=== PATIENT | male | born 1935 | race Caucasian/White ===

== ENCOUNTER 2017-01-13 10:50 | Emergency (ER) | payer MEDICARE, OTHER ==
[2017-01-13 10:58] VITALS: BP 144/70
[2017-01-13] MEDS ORDERED: Bacitracin/Neomycin/Polymyxin B Oint 0.9 GM U/D Packet TOP ONE (11:10)
[2017-01-13] MEDS ORDERED: Diphtheria,Pertussis(Acell),Tetanus Vaccine 0.5 ML Syringe IM ONE (11:11)
--- NOTE | 2017-01-13 11:21 | EDM.PDOC ---
ED HPI GENERAL MEDICAL PROBLEM - General Chief Complaint: General Stated Complaint: fall, hit head Time Seen by Provider: 01/13/17 11:10 Source of Information: Reports: Patient History Limitations: Reports: No limitations - History of Present Illness INITIAL COMMENTS - FREE TEXT/NARRATIVE: States that [place] and he lost his balance and fell forward. He has abrasions to his forehead and nose and right knee. Denies pain in neck or back. Was brought in by family. Denies any LOC. Abrasion are bleeding slightly to face. No bleeding to knee. Was able to get up with the help of family at the scene and has been walking around without discomfort since. Areas were cleaned by nursing and no debris noted. No lacerations that would require suturing. No pain to his nose except where the abrasion is. No deformity of the nose noted. Onset: today Location: Reports: face, lower extremity, right Quality: Reports: Burning Severity: mild Associated Symptoms: Reports: no other symptoms Headache Pain Score (Numeric/FACES): 2 - Related Data Allergies Allergy/AdvReac Type Severity Reaction Status Date / Time Penicillins Allergy Intermediate Swelling Verified 01/13/17 11:41 Sulfa (Sulfonamide Allergy Intermediate Nausea Verified 01/13/17 11:41 Antibiotics) niacin Allergy Rash Verified 01/13/17 11:41 Home Meds: Home Meds Loratadine [Claritin] 10 mg PO DAILY 02/13/14 [History] Ascorbate Calcium [Vitamin C] 1 tab PO DAILY 02/15/14 [History] Aspirin 325 mg PO DAILY 02/15/14 [History] Cholecalciferol (Vitamin D3) [Vitamin D] 1,000 unit PO DAILY 02/15/14 [History] Finasteride [Proscar] 5 mg PO DAILY 02/15/14 [History] Hydrochlorothiazide 25 mg PO DAILY 02/15/14 [History] Losartan [Cozaar] 50 mg PO QAM 02/15/14 [History] Losartan [Cozaar] 100 mg PO QPM 02/15/14 [History] Metoprolol Tartrate 100 mg PO BID 02/15/14 [History] Vitamin B Complex [B Complex] 1 each PO DAILY 02/15/14 [History] amLODIPine [Norvasc] 10 mg PO DAILY 02/15/14 [History] Gluc/MSM/C/[place]/Manganese/Gail [Joint Support Complex Softgel] 1 tab PO BID 08/24 [History] atorvaSTATin [Lipitor] 10 mg PO DAILY 08/20/15 [History] metFORMIN HCl [Metformin HCl] 500 mg PO DAILY 01/13/17 [History] Social & Family History - Tobacco Use Smoking Status *Q: Never Smoker - Living Situation & Occupation Living situation: Reports: , with spouse Occupation: retired ED ROS GENERAL - Review of Systems Review Of Systems: See Below Constitutional: Reports: no symptoms HEENT: Denies: Nosebleed, Nose pain Respiratory: Reports: No Symptoms Cardiovascular: Reports: No symptoms GI/Abdominal: Reports: No symptoms Musculoskeletal: Reports: no symptoms Skin: Reports: wound (see HPI) Neurological: Denies: Confusion, Dizziness, Headache, Numbness, Syncope, Weakness ED EXAM, GENERAL - Physical Exam Exam: See Below Exam Limited By: No limitations General Appearance: alert, WD/WN, no apparent distress Eye Exam: bilateral eye: PERRL Ears: normal canal, normal TMs Nose: No: nasal deformity, nasal swelling Throat/Mouth: Normal oropharynx, No airway compromise Head: facial tenderness. No: facial swelling Neck: normal inspection, supple, non-tender, full range of motion Respiratory/Chest: no respiratory distress, lungs clear, normal breath sounds Cardiovascular: regular rate, rhythm, no edema GI/Abdominal: normal bowel sounds, soft Back Exam: normal inspection, full range of motion Extremities: normal inspection, no pedal edema Neurological: alert, oriented Skin Exam: Warm, Dry, Intact, Other (abrasion to the forehead that is bleeding slightly. No debris noted with exam. Cleaned well and dressed with KIMBERLY and 4X4. Nose has small abrasion and no bleeding. KIMBERLY and dressing applied.) Course - Vital Signs Last Recorded V/S: Last Vital Signs Temp 98.7 F 01/13/17 10:52 Pulse 72 01/13/17 10:52 Resp 16 01/13/17 10:52 BP 144/70 H 01/13/17 10:52 Pulse Ox 96 01/13/17 10:52 - Orders/Labs/Meds Orders: Active Orders 24 hr Category Date Time Status Vaccines to be Administered [RC] PER UNIT ROUTINE Care 01/13/17 11:11 Active Meds: Medications Discontinued Medications Generic Name Dose Route Start Last Admin Trade Name Arlene PRN Reason Stop Dose Admin Diphtheria/Tetanus/Acell Pertussis 0.5 ml 01/13/17 11:11 01/13/17 11:15 Adacel IM 01/13/17 11:12 0.5 ml .ONCE ONE Administration Neomycin/Polymyxin/Bacitracin 3 each 01/13/17 11:10 01/13/17 11:15 Triple Antibiotic Oint TOP 01/13/17 11:11 3 each ONETIME ONE Administration Departure - Departure Time of Disposition: Disposition: Home, Self-Care 01 Condition: good Clinical Impression: Abrasion, Fall Referrals: Eulogio Puente MD [Primary Care Provider] - Forms: ED Department Discharge Additional Instructions: keep area dry and clean. Apply antibiotic ointment to the area. If scabbed then can clean with peroxide gently. recheck if any new concerns - Problem List & Annotations (1) Abrasion SNOMED Code(s): 701157889 Code(s): T14.8 - OTHER INJURY OF UNSPECIFIED BODY REGION Status: Acute Priority: High (2) Fall SNOMED Code(s): 4127365, 384132647 Code(s): W19.XXXA - UNSPECIFIED FALL, INITIAL ENCOUNTER Status: Acute - Problem List Review Problem List Initiated/Reviewed/Updated: Yes - My Orders Last 24 Hours: My Active Orders 01/13/17 11:11 Vaccines to be Administered [RC] PER UNIT ROUTINE - Assessment/Plan Last 24 Hours: My Active Orders 01/13/17 11:11 Vaccines to be Administered [RC] PER UNIT ROUTINE
== END 2017-01-13 11:30 | disposition home or self-care (01) ==
LOC: CC.ED 10:50
DX: S00.81XA Abrasion of other part of head, initial encounter (principal); S00.31XA Abrasion of nose, initial encounter; S80.211A Abrasion, right knee, initial encounter; Z88.0 Allergy status to penicillin; Z88.2 Allergy status to sulfonamides; Z79.82 Long term (current) use of aspirin; Z23 Encounter for immunization; Z79.899 Other long term (current) drug therapy; W19.XXXA Unspecified fall, initial encounter
CPT/HCPCS: 90471; 90715; 99282

== ENCOUNTER 2018-10-25 14:39 | Observation (INO) | payer MEDICARE, OTHER ==
[2018-10-25] MEDS ORDERED: Aspirin 81 MG Tab.Chew PO ONE (14:48)
[2018-10-25 15:24] LABS: CHLORIDE,CL 98 mEq/L (98-106); SODIUM,NA 137 mEq/L (136-145)
--- NOTE | 2018-10-25 15:26 | EDM.PDOC ---
ED HPI GENERAL MEDICAL PROBLEM - General Chief Complaint: Chest Pain Stated Complaint: CP Time Seen by Provider: 10/25/18 15:15 Source of Information: Reports: Patient History Limitations: Reports: No Limitations - History of Present Illness INITIAL COMMENTS - FREE TEXT/NARRATIVE: States that after he ate dinner today he developed midsternal chest pain and his states that he was very pale. He denied any diaphoresis, SOB, or nausea. Does have history of GERD but he feels that it has been controlled. He will occasionally get some distal ankle edema but has been minimal. When he arrived in the ER the pain had subsided. He currently does not have any chest pain at all. He admits that he will occasionally get some palpations but didn't feel concerned about it and had not been evaluated for it. He states that many years ago he did have some atrial fib but none recently. Did have stress test 02/24/15 that was read as negative. Last EKG was 07/21/16 and was NSR. Carotid US was 10/27 and negative. Last echo 01/22 with EF of 60-65% Location: Reports: Chest Quality: Reports: Pressure Associated Symptoms: Reports: Fever/Chills, Shortness of Breath. Denies: Diaphoresis - Related Data Allergies Allergy/AdvReac Type Severity Reaction Status Date / Time Penicillins Allergy Intermediate Swelling Verified 10/25/18 15:16 Sulfa (Sulfonamide Allergy Intermediate Nausea Verified 10/25/18 15:16 Antibiotics) lactose Allergy Other Verified 10/25/18 17:50 niacin Allergy Burning Verified 10/25/18 15:16 Home Meds: Home Meds Loratadine [Claritin] 10 mg PO DAILY 02/13/14 [History] Cholecalciferol (Vitamin D3) [Vitamin D] 2,000 unit PO DAILY 02/15/14 [History] Finasteride [Proscar] 5 mg PO DAILY 02/15/14 [History] Losartan [Cozaar] 50 mg PO QAM 02/15/14 [History] Losartan [Cozaar] 100 mg PO QPM 02/15/14 [History] Metoprolol Tartrate 100 mg PO BID 02/15/14 [History] Vitamin B Complex [B Complex] 1 each PO DAILY 02/15/14 [History] amLODIPine [Norvasc] 10 mg PO DAILY 02/15/14 [History] hydroCHLOROthiazide [Hydrochlorothiazide] 25 mg PO DAILY 02/15/14 [History] atorvaSTATin [Lipitor] 10 mg PO DAILY 08/20/15 [History] metFORMIN HCl [Metformin HCl] 1,000 mg PO .BREAKFAST 01/13/17 [History] Ascorbic Acid [Vitamin C] 500 mg PO DAILY 11/03/17 [History] Betamethasone Dipropionate [Diprosone 0.05% Oint] 1 applic TOP ASDIRECTED PRN [History] Clotrimazole [Lotrimin AF 1% Crm] 1 applic TOP ASDIRECTED PRN 11/03/17 [History] Folic Acid 1 mg PO DAILY 11/03/17 [History] Aspirin [Ecotrin] 81 mg PO DAILY 10/25/18 [History] Magnesium 500 mg PO BID 10/25/18 [History] Pantoprazole Sodium 40 mg PO DAILY 10/25/18 [History] Past Medical History HEENT History: Reports: Glaucoma, Impaired Vision, Other (See Below) Other HEENT History: WEARS CORRECTIVE LENS Cardiovascular History: Reports: High Cholesterol, Hypertension Other Cardiovascular History: CAROTID VASCULAR DISEASE Respiratory History: Reports: None Gastrointestinal History: Reports: Colon Polyp, Diverticulosis, Gastritis, GERD , Hiatal Hernia, Other (See Below) Other Gastrointestinal History: LACTOSE INTOLERANCE. HEPATIC STEATOSIS. HX OF 'RECTAL HYPERPLASTIC POLYP' Genitourinary History: Reports: BPH Musculoskeletal History: Reports: Arthritis, Neck Pain, Chronic Neurological History: Reports: None Psychiatric History: Reports: None Endocrine/Metabolic History: Reports: Diabetes, Type II Hematologic History: Reports: None Immunologic History: Reports: None Oncologic (Cancer) History: Reports: None Dermatologic History: Reports: None - Infectious Disease History Infectious Disease History: Reports: Chicken Pox, Hepatitis non A,B,C, Measles, Mumps - Past Surgical History Head Surgeries/Procedures: Reports: None HEENT Surgical History: Reports: None, Cataract Surgery Cardiovascular Surgical History: Reports: Carotid Endarterectomy, Coronary Artery Bypass Respiratory Surgical History: Reports: None GI Surgical History: Reports: Cholecystectomy, Colonoscopy, EGD, Polypectomy Endocrine Surgical History: Reports: None Neurological Surgical History: Reports: None Musculoskeletal Surgical History: Reports: None Oncologic Surgical History: Reports: None Dermatological Surgical History: Reports: None Social & Family History - Caffeine Use Caffeine Use: Reports: Coffee, Soda Other Caffeine Use: TWO CUPS DAILY - Living Situation & Occupation Living situation: Reports: , with Spouse Occupation: Retired ED ROS GENERAL - Review of Systems Review Of Systems: See Below Constitutional: Denies: Fever, Chills HEENT: Reports: No Symptoms Respiratory: Reports: Cough. Denies: Shortness of Breath Cardiovascular: Reports: Chest Pain, Edema, Palpitations Endocrine: Reports: No Symptoms GI/Abdominal: Reports: No Symptoms. Denies: Constipation, Diarrhea, Nausea, Vomiting : Reports: No Symptoms Musculoskeletal: Reports: No Symptoms Skin: Reports: No Symptoms Neurological: Reports: No Symptoms Psychiatric: Reports: No Symptoms ED EXAM, GENERAL - Physical Exam Exam: See Below Exam Limited By: No Limitations General Appearance: Alert, WD/WN, No Apparent Distress Eye Exam: Bilateral Eye: PERRL Ears: Normal External Exam, Normal Canal, Normal TMs Nose: Normal Inspection Throat/Mouth: Normal Inspection, Normal Oropharynx Head: Atraumatic, Normocephalic Neck: Normal Inspection, Supple, Non-Tender, Full Range of Motion Respiratory/Chest: No Respiratory Distress, Lungs Clear, Normal Breath Sounds Cardiovascular: Normal Peripheral Pulses, No Edema, Irregularly Irregular. No: Tachycardia Peripheral Pulses: 4+: Carotid (L), Carotid (R) GI/Abdominal: Normal Bowel Sounds, Soft, Non-Tender Back Exam: Normal Inspection, Full Range of Motion Extremities: Normal Inspection, Normal Range of Motion, Non-Tender, No Pedal Edema, Normal Capillary Refill Neurological: Alert, Oriented Psychiatric: Normal Affect Skin Exam: Warm, Dry, Intact, Normal Color Course - Vital Signs Last Recorded V/S: Last Vital Signs Temp 98.7 F 10/26/18 16:00 Pulse 63 10/26/18 16:00 Resp 16 10/26/18 16:00 BP 115/45 L 10/26/18 16:00 Pulse Ox 98 10/26/18 16:00 - Orders/Labs/Meds Orders: Medication Orders Acetaminophen (Tylenol) 650 mg PO Q4H PRN PRN Reason: Pain (Mild 1-3)/fever Amlodipine Besylate (Norvasc) 10 mg PO DAILY [facility] Last Admin: 10/26/18 07:35 Dose: 10 mg Apixaban (Eliquis) 5 mg PO DAILY [facility] Last Admin: 10/26/18 07:31 Dose: 5 mg Admin: 10/25/18 17:56 Dose: 5 mg Aspirin (Halfprin) 81 mg PO DAILY [facility] Last Admin: 10/26/18 07:32 Dose: 81 mg Atorvastatin Calcium (Lipitor) 10 mg PO DAILY [facility] Last Admin: 10/26/18 07:32 Dose: 10 mg Finasteride (Proscar) 5 mg PO DAILY [facility] Last Admin: 10/26/18 07:35 Dose: 5 mg Losartan Potassium (Cozaar) 100 mg PO QPM [facility] Last Admin: 10/25/18 20:57 Dose: 100 mg Ptom Losartan [ (Cozaar] 100 Mg Tab) 50 mg PO QAM [facility] Last Admin: 10/26/18 07:33 Dose: 50 mg Ptom Magnesium (250 Mg) 250 mg PO BID [facility] Last Admin: 10/26/18 07:34 Dose: 250 mg Admin: 10/25/18 20:58 Dose: 250 mg Ptom Metoprolol (Tartrate 100 Mg) 100 mg PO BID [facility] Last Admin: 10/26/18 07:35 Dose: 100 mg Admin: 10/25/18 20:58 Dose: 100 mg Ptom Hydrochlorothiazide 50mg 50 mg PO DAILY [facility] Last Admin: 10/26/18 07:32 Dose: 50 mg Ptom Metformin (1000 Mg) 1,000 mg PO DAILY [facility] Last Admin: 10/26/18 07:34 Dose: 1,000 mg Pantoprazole Sodium (Protonix) 40 mg PO DAILY [facility] Last Admin: 10/26/18 07:37 Dose: 40 mg Sodium Chloride (Saline Flush) 10 ml FLUSH ASDIRECTED PRN PRN Reason: Keep Vein Open Temazepam (Restoril) 15 mg PO BEDTIME PRN PRN Reason: Insomnia Labs: Laboratory Tests 10/25/18 10/25/18 10/25/18 Range/Units 15:05 15:05 15:05 WBC 8.7 (5.0-10.0) 10^3/uL RBC 4.29 L (4.50-6.00) 10^6/uL Hgb 13.9 L (14.0-18.0) g/dL Hct 40.6 (40.0-54.0) % MCV 94.6 H (82.0-94.0) fL MCH 32.4 H (27.0-32.0) pg MCHC 34.2 (33.0-38.0) g/dL RDW Coeff of Jarvis 13.2 (11.0-15.0) % Plt Count 197 (150-400) 10^3/uL Neut % (Auto) 63.2 (35-85) % Lymph % (Auto) 21.2 (10-55) % [place] % (Auto) 12.5 (0-16) % Eos % (Auto) 2.9 (0-5) % Baso % (Auto) 0.2 (0-3) % Neut # (Auto) 5.47 (1.80-7.00) 10^3/uL Lymph # (Auto) 1.83 (1.00-4.80) 10^3/uL [place] # (Auto) 1.08 H (0.00-0.80) 10^3/uL Eos # (Auto) 0.25 (0.00-0.45) 10^3/uL Baso # (Auto) 0.02 10^3/uL PT 10.9 (9.7-12.3) SEC INR 1.05 (0.92-1.18) APTT 28.8 (23.2-32.3) SEC Sodium 137 (136-145) mEq/L Potassium 3.4 L (3.5-5.0) mEq/L Chloride 98 (98-106) mEq/L Carbon Dioxide 28 (21-32) mmol/L BUN 16 (7-18) mg/dL Creatinine 1.0 (0.7-1.3) mg/dL Est Cr Clr Drug Dosing 52.33 mL/min Estimated GFR (MDRD) > 60 (>=60) mL/min Glucose 125 H (75-99) mg/dL Calcium 9.4 (8.4-10.1) mg/dL Lactate Dehydrogenase 179 (100-190) U/L Creatine Kinase 45 (35-232) U/L Troponin I < 0.017 (0.00-0.06) ng/mL Meds: Medications Generic Name Dose Route Start Last Admin Trade Name Freq PRN Reason Stop Dose Admin Acetaminophen 650 mg 10/25/18 17:10 Tylenol PO Q4H PRN Pain (Mild 1-3)/fever Amlodipine Besylate 10 mg 10/26/18 08:00 10/26/18 07:35 Norvasc PO 10 mg DAILY [facility] Administration Apixaban 5 mg 10/25/18 17:15 10/26/18 07:31 Eliquis PO 5 mg DAILY [facility] Administration Aspirin 81 mg 10/26/18 08:00 10/26/18 07:32 Halfprin PO 81 mg DAILY [facility] Administration Atorvastatin Calcium 10 mg 10/26/18 08:00 10/26/18 07:32 Lipitor PO 10 mg DAILY [facility] Administration Finasteride 5 mg 10/26/18 08:00 10/26/18 07:35 Proscar PO 5 mg DAILY [facility] Administration Losartan Potassium 100 mg 10/25/18 20:00 10/25/18 20:57 Cozaar PO 100 mg QPM [facility]ANEL Administration Ptom Losartan [ 50 mg 10/26/18 08:00 10/26/18 07:33 Cozaar] 100 Mg Tab PO 50 mg QAM [facility]EL Administration Ptom Magnesium 250 mg 10/25/18 20:00 10/26/18 07:34 250 Mg PO 250 mg BID [facility]ANEL Administration Ptom Metoprolol 100 mg 10/25/18 20:00 10/26/18 07:35 Tartrate 100 Mg PO 100 mg BID [facility] Administration Ptom 50 mg 10/26/18 08:00 10/26/18 07:32 Hydrochlorothiazide PO 50 mg 50mg DAILY [facility] Administration Ptom Metformin 1,000 mg 10/26/18 08:00 10/26/18 07:34 1000 Mg PO 1,000 mg DAILY [facility] Administration Pantoprazole Sodium 40 mg 10/26/18 08:00 10/26/18 07:37 Protonix PO 40 mg DAILY [facility] Administration Sodium Chloride 10 ml 10/25/18 17:10 Saline Flush FLUSH ASDIRECTED PRN Keep Vein Open Temazepam 15 mg 10/26/18 14:04 Restoril PO BEDTIME PRN Insomnia Discontinued Medications Generic Name Dose Route Start Last Admin Trade Name Freq PRN Reason Stop Dose Admin Aspirin 324 mg 10/25/18 14:48 10/25/18 14:50 Aspirin PO 10/25/18 14:49 324 mg ONETIME ONE Administration Hydrochlorothiazide 25 mg 10/26/18 08:00 Hydrochlorothiazide PO DAILY [facility] Metformin HCl 1,000 mg 10/25/18 17:15 Glucophage PO .BREAKFAST [facility] - Re-Assessments/Exams Free Text/Narrative Re-Assessment/Exam: 10/25/[address] Ruby and will admit and work up to rule out [place] and new onset A. fib. Departure - Departure Time of Disposition: 16:00 Disposition: Refer to Observation Condition: Good Clinical Impression: Atrial fibrillation Qualifiers: Atrial fibrillation type: persistent Qualified Code(s): I48.1 - Persistent atrial fibrillation Chest pain Qualifiers: Chest pain type: other chest pain Qualified Code(s): R07.89 - Other chest pain Diabetes Qualifiers: Diabetes mellitus type: type 2 Diabetes mellitus long-term insulin use: without long-term use Diabetes mellitus complication status: with circulatory complication - Problem List & Annotations (1) Chest pain SNOMED Code(s): 15698920 Code(s): R07.9 - CHEST PAIN, UNSPECIFIED Status: Acute Priority: High Current Visit: Yes Qualifiers: Chest pain type: other chest pain Qualified Code(s): R07.89 - Other chest pain; R07.8 - Other chest pain (2) Atrial fibrillation SNOMED Code(s): 85702552 Code(s): I48.91 - UNSPECIFIED ATRIAL FIBRILLATION Status: Acute Priority : High Current Visit: Yes Qualifiers: Atrial fibrillation type: persistent Qualified Code(s): I48.1 - Persistent atrial fibrillation (3) Diabetes SNOMED Code(s): 63599544 Code(s): E11.9 - TYPE 2 DIABETES MELLITUS WITHOUT COMPLICATIONS Status: Chronic Priority: Medium Current Visit: Yes Qualifiers: Diabetes mellitus type: type 2 Diabetes 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 Ruby. Agrees with admit and plan of care. Will get updated echo and start on eloquis for the new onset atrial fib as he has NATALYA-Vasc score of 4 which places him at high risk of thrombosis. Repeat cardiac enzymes tonight and in AM.
[2018-10-25] MEDS ORDERED: Sodium Chloride 0.9% 10 ML Syringe FLUSH PRN (17:10)
[2018-10-25] MEDS ORDERED: Acetaminophen 325 MG Tab PO PRN (17:10)
[2018-10-25] MEDS ORDERED: metFORMIN 500 MG Tab PO SCH (17:15)
[2018-10-25] MEDS: Apixaban 5 MG Tab PO SCH (17:56)
[2018-10-25] MEDS: **PTOM** Losartan 100 MG Tab PO SCH (20:57)
[2018-10-25] MEDS: METOPROLOL TARTRATE 100 MG PO SCH (20:58)
[2018-10-25] MEDS: MAGNESIUM 250 MG PO SCH (20:58)
[2018-10-26] MEDS: Apixaban 5 MG Tab PO SCH (07:31)
[2018-10-26] MEDS: **PTOM** atorvaSTATin 20 MG Tab PO SCH (07:32)
[2018-10-26] MEDS: HYDROCHLOROTHIAZIDE 50 MG PO SCH (07:32)
[2018-10-26] MEDS: **PTOM** Aspirin 81 MG Tab.EC PO SCH (07:32)
[2018-10-26] MEDS: LOSARTAN 100 MG PO SCH (07:33)
[2018-10-26] MEDS: MAGNESIUM 250 MG PO SCH ×2 (07:34→20:31)
[2018-10-26] MEDS: METFORMIN 1000 MG PO SCH (07:34)
[2018-10-26] MEDS: **PTOM** Finasteride 5 MG Tab PO SCH (07:35)
[2018-10-26] MEDS: METOPROLOL TARTRATE 100 MG PO SCH ×2 (07:35→20:29)
[2018-10-26] MEDS: **PTOM** amLODIPine 10 MG Tab PO SCH (07:35)
[2018-10-26] MEDS: **PTOM** Pantoprazole 40 MG Tab.CR PO SCH (07:37)
[2018-10-26] MEDS ORDERED: Hydrochlorothiazide 25 MG Tab PO SCH (08:00)
[2018-10-26] MEDS ORDERED: Temazepam 15 MG Cap PO PRN (14:04)
--- NOTE | 2018-10-26 16:33 | PCM.PN ---
- General Info Date of Service: 10/25/18 Admission Dx/Problem (Free Text): Chest Pain New onset Atrial Fib Functional Status: Reports: Pain Controlled, Tolerating Diet, Ambulating - Review of Systems General: Denies: Weakness, Fatigue HEENT: Reports: No Symptoms Pulmonary: Denies: Shortness of Breath, Cough Cardiovascular: Denies: Chest Pain, Edema, Lightheadedness Gastrointestinal: Denies: Abdominal Pain, Nausea, Vomiting Genitourinary: Reports: No Symptoms Musculoskeletal: Reports: No Symptoms Skin: Reports: No Symptoms Neurological: Reports: No Symptoms - Patient Data Vitals - Most Recent: Last Vital Signs Temp 98.7 F 10/26/18 16:00 Pulse 63 10/26/18 16:00 Resp 16 10/26/18 16:00 BP 115/45 L 10/26/18 16:00 Pulse Ox 98 10/26/18 16:00 Weight - Most Recent: 166 lb 1.6 oz I&O - Last 24 Hours: Intake & Output 10/26/18 10/26/18 10/26/18 06:59 14:59 22:59 Intake Total 100 Balance 100 Lab Results Last 24 Hours: Laboratory Results - last 24 hr 10/25/18 10/25/18 10/26/18 Range/Units 18:55 21:07 07:00 POC Glucose 164 H (75-105) mg/dl Lactate Dehydrogenase 190 188 (100-190) U/L Creatine Kinase 48 41 (35-232) U/L Troponin I < 0.017 < 0.017 (0.00-0.06) ng/mL 10/26/18 10/26/18 Range/Units 07:03 12:03 POC Glucose 144 H 152 H (75-105) mg/dl Lactate Dehydrogenase (100-190) U/L Creatine Kinase (35-232) U/L Troponin I (0.00-0.06) ng/mL Med Orders - Current: Current Medications Acetaminophen (Tylenol) 650 mg PO Q4H PRN PRN Reason: Pain (Mild 1-3)/fever Amlodipine Besylate (Norvasc) 10 mg PO DAILY [facility] Last Admin: 10/26/18 07:35 Dose: 10 mg Apixaban (Eliquis) 5 mg PO DAILY [facility] Last Admin: 10/26/18 07:31 Dose: 5 mg Aspirin (Halfprin) 81 mg PO DAILY [facility] Last Admin: 10/26/18 07:32 Dose: 81 mg Atorvastatin Calcium (Lipitor) 10 mg PO DAILY [facility] Last Admin: 10/26/18 07:32 Dose: 10 mg Finasteride (Proscar) 5 mg PO DAILY [facility] Last Admin: 10/26/18 07:35 Dose: 5 mg Losartan Potassium (Cozaar) 100 mg PO QPM [facility] Last Admin: 10/25/18 20:57 Dose: 100 mg Ptom Losartan [ (Cozaar] 100 Mg Tab) 50 mg PO QAM [facility] Last Admin: 10/26/18 07:33 Dose: 50 mg Ptom Magnesium (250 Mg) 250 mg PO BID [facility] Last Admin: 10/26/18 07:34 Dose: 250 mg Ptom Metoprolol (Tartrate 100 Mg) 100 mg PO BID [facility] Last Admin: 10/26/18 07:35 Dose: 100 mg Ptom Hydrochlorothiazide 50mg 50 mg PO DAILY [facility] Last Admin: 10/26/18 07:32 Dose: 50 mg Ptom Metformin (1000 Mg) 1,000 mg PO DAILY [facility] Last Admin: 10/26/18 07:34 Dose: 1,000 mg Pantoprazole Sodium (Protonix) 40 mg PO DAILY [facility] Last Admin: 10/26/18 07:37 Dose: 40 mg Sodium Chloride (Saline Flush) 10 ml FLUSH ASDIRECTED PRN PRN Reason: Keep Vein Open Temazepam (Restoril) 15 mg PO BEDTIME PRN PRN Reason: Insomnia Discontinued Medications Aspirin (Aspirin) 324 mg PO ONETIME ONE Stop: 10/25/18 14:49 Last Admin: 10/25/18 14:50 Dose: 324 mg Hydrochlorothiazide (Hydrochlorothiazide) 25 mg PO DAILY [facility] Metformin HCl (Glucophage) 1,000 mg PO .BREAKFAST [facility] - Exam General: Alert, Oriented HEENT: Mucous Membr. Moist/[place] Neck: Supple Lungs: Clear to Auscultation, Normal Respiratory Effort Cardiovascular: Irregular Rhythm GI/Abdominal Exam: Normal Bowel Sounds, Soft, Non-Tender Extremities: Normal Inspection, No Pedal Edema Skin: Warm, Dry Neurological: No New Focal Deficit - Problem List & Annotations (1) Atrial fibrillation SNOMED Code(s): 47528456 Code(s): I48.91 - UNSPECIFIED ATRIAL FIBRILLATION Status: Acute Priority : High Current Visit: Yes Qualifiers: Atrial fibrillation type: persistent Qualified Code(s): I48.1 - Persistent atrial fibrillation (2) Chest pain SNOMED Code(s): 38251385 Code(s): R07.9 - CHEST PAIN, UNSPECIFIED Status: Acute Priority: High Current Visit: Yes Qualifiers: Chest pain type: other chest pain Qualified Code(s): R07.89 - Other chest pain; R07.8 - Other chest pain (3) Diabetes SNOMED Code(s): 88891955 Code(s): E11.9 - TYPE 2 DIABETES MELLITUS WITHOUT COMPLICATIONS Status: Chronic Priority: Medium Current Visit: Yes Qualifiers: Diabetes mellitus type: type 2 Diabetes mellitus usp insulin use: without usp use Diabetes mellitus complication status: with circulatory complication - Problem List Review Problem List Initiated/Reviewed/Updated: Yes - Assessment Assessment:: Chest Pain New Onset Atrial Fib - Plan Plan:: Patient is doing well today. Denies any chest pain. No shortness of breath. Telemetry continues to show atrial fib. Rate controlled. Was started yesterday on Eliquis. Tolerating well up to this point despite mild GI intolerance to lactose in the past. Troponins have remained negative. Blood pressure stable Will continue to monitor telemetry and ensure rate is controlled. Monitor for any pain. Probable discharge in am.
[2018-10-26] MEDS: **PTOM** Losartan 100 MG Tab PO SCH (20:30)
[2018-10-27] MEDS: **PTOM** Aspirin 81 MG Tab.EC PO SCH (07:26)
[2018-10-27] MEDS: **PTOM** atorvaSTATin 20 MG Tab PO SCH (07:27)
[2018-10-27] MEDS: HYDROCHLOROTHIAZIDE 50 MG PO SCH (07:27)
[2018-10-27] MEDS: MAGNESIUM 250 MG PO SCH (07:28)
[2018-10-27] MEDS: LOSARTAN 100 MG PO SCH (07:28)
[2018-10-27] MEDS: METFORMIN 1000 MG PO SCH (07:29)
[2018-10-27] MEDS: METOPROLOL TARTRATE 100 MG PO SCH (07:29)
[2018-10-27] MEDS: **PTOM** Finasteride 5 MG Tab PO SCH (07:30)
[2018-10-27] MEDS: **PTOM** Pantoprazole 40 MG Tab.CR PO SCH (07:30)
[2018-10-27] MEDS: **PTOM** amLODIPine 10 MG Tab PO SCH (07:30)
[2018-10-27] MEDS: Apixaban 5 MG Tab PO SCH (07:33)
[2018-10-27 07:34] VITALS: BP 132/52
--- NOTE | 2018-10-31 15:44 | PCM.DCSUM1 ---
Discharge Summary - Hospital Course Free Text/Narrative:: Patient presented to ER due to midsternal chest pain. related that he had become very pale but was not short of breath, diaphoretic or nauseated. Had a history of GERD but it had been under control. No notable swelling in his legs. By arrival to the ER, pain had resolved. EKG in ER did show atrial fib. He relates that he had issues with palpitations and had been in atrial fib many years ago but no concerns with that as of late. Last EKG prior to this was in 2015, which was normal. Patient had a normal stress test in 2014, echo with EF of 60% in 2014. Carotid US was October 2017 which was normal. Admitted for new onset atrial fib. Monitor rate control. Serial cardiac labs. Diagnosis: Stroke: No Modified Reynolds Scale: No Symptoms at All Modified Reynolds Scale Score: 0 - Discharge Data Discharge Date: 10/31/18 Discharge Disposition: Home, Self-Care 01 Condition: Good - Discharge Diagnosis/Problem(s) (1) Atrial fibrillation SNOMED Code(s): 33237548 ICD Code: I48.91 - UNSPECIFIED ATRIAL FIBRILLATION Status: Acute Priority : High Qualifiers: Atrial fibrillation type: persistent Qualified Code(s): I48.1 - Persistent atrial fibrillation (2) Chest pain SNOMED Code(s): 74313100 ICD Code: R07.9 - CHEST PAIN, UNSPECIFIED Status: Acute Priority: High Qualifiers: Chest pain type: other chest pain Qualified Code(s): R07.89 - Other chest pain; R07.8 - Other chest pain (3) Diabetes SNOMED Code(s): 02501233 ICD Code: E11.9 - TYPE 2 DIABETES MELLITUS WITHOUT COMPLICATIONS Status: Chronic Priority: Medium Qualifiers: Diabetes mellitus type: type 2 Diabetes mellitus alf insulin use: without alf use Diabetes mellitus complication status: with circulatory complication - Patient Summary/Data Complications: none Hospital Course: Patient has been feeling well since admission. phototypesetting equipment monitor had shown atrial fib with controlled rate in the 80s-90s. This am, did note NSR on telemetry. EKG repeated which confirmed. He has not had any chest pain since admission. Serial troponins have been negative. He is up and ambulating without pain. He was started on Eliquis for stroke/clot prevention. Do feel this is necessary coverage for this for the next 6 weeks. Echocardiogram completed. Will discharge home on Eliquis. Has been on Metoprolol 100 mg BID and will continue. Blood pressure is controlled now - Patient Instructions Diet: Usual Diet as Tolerated Activity: As Tolerated - Discharge Plan *PRESCRIPTION DRUG MONITORING PROGRAM REVIEWED*: No *COPY OF PRESCRIPTION DRUG MONITORING REPORT IN PATIENT ABIEL: No Prescriptions/Med Rec: Apixaban [Eliquis] 5 mg PO DAILY #30 tablet Home Medications: Home Meds Loratadine [Claritin] 10 mg PO DAILY 02/13/14 [History] Cholecalciferol (Vitamin D3) [Vitamin D3] 2,000 unit PO DAILY 02/15/14 [History] Finasteride [Proscar] 5 mg PO DAILY 02/15/14 [History] Losartan [Cozaar] 100 mg PO QPM 02/15/14 [History] Metoprolol Tartrate 100 mg PO BID 02/15/14 [History] Vitamin B Complex [B Complex] 1 each PO DAILY 02/15/14 [History] amLODIPine [Norvasc] 10 mg PO DAILY 02/15/14 [History] hydroCHLOROthiazide [Hydrochlorothiazide] 50 mg PO DAILY 02/15/14 [History] atorvaSTATin [Lipitor] 10 mg PO DAILY 08/20/15 [History] metFORMIN HCl [Metformin HCl] 1,000 mg PO .BREAKFAST 01/13/17 [History] Ascorbic Acid [Vitamin C] 500 mg PO DAILY 11/03/17 [History] Betamethasone Dipropionate [Diprosone 0.05% Oint] 1 applic TOP ASDIRECTED PRN [History] Clotrimazole [Lotrimin AF 1% Crm] 1 applic TOP ASDIRECTED PRN 11/03/17 [History] Folic Acid 1 mg PO DAILY 11/03/17 [History] Aspirin [Ecotrin] 81 mg PO DAILY 10/25/18 [History] Magnesium 500 mg PO BID 10/25/18 [History] Pantoprazole Sodium 40 mg PO DAILY 10/25/18 [History] Apixaban [Eliquis] 5 mg PO DAILY #30 tablet 10/27/18 [Rx] Patient Handouts: Apixaban oral tablets Forms: ED Department Discharge Referrals: Eulogio Puente MD [Primary Care Provider] - (Follow up with Dr. Puente in 1-2 weeks for hospital follow up.) - Discharge Summary/Plan Comment DC Time >30 min.: No - General Info Date of Service: 10/31/18 Admission Dx/Problem (Free Text: Chest Pain New onset Atrial Fib Functional Status: Reports: Pain Controlled, Tolerating Diet, Ambulating - Review of Systems General: Denies: Weakness, Fatigue HEENT: Reports: No Symptoms Pulmonary: Denies: Shortness of Breath, Cough Cardiovascular: Denies: Chest Pain, Edema, Lightheadedness Gastrointestinal: Denies: Abdominal Pain, Nausea, Vomiting Genitourinary: Reports: No Symptoms Musculoskeletal: Reports: No Symptoms Skin: Reports: No Symptoms Neurological: Reports: No Symptoms - Patient Data Vitals - Most Recent: Last Vital Signs Temp 96.7 F 10/27/18 07:34 Pulse 62 10/27/18 07:34 Resp 16 10/27/18 07:34 BP 132/52 L 10/27/18 07:34 Pulse Ox 97 10/27/18 07:34 Weight - Most Recent: 166 lb 12.8 oz Med Orders - Current: Current Medications Discontinued Medications Acetaminophen (Tylenol) 650 mg PO Q4H PRN PRN Reason: Pain (Mild 1-3)/fever Amlodipine Besylate (Norvasc) 10 mg PO DAILY [facility] Last Admin: 10/27/18 07:30 Dose: 10 mg Apixaban (Eliquis) 5 mg PO DAILY [facility] Last Admin: 10/27/18 07:33 Dose: 5 mg Aspirin (Aspirin) 324 mg PO ONETIME ONE Stop: 10/25/18 14:49 Last Admin: 10/25/18 14:50 Dose: 324 mg Aspirin (Halfprin) 81 mg PO DAILY [facility] Last Admin: 10/27/18 07:26 Dose: 81 mg Atorvastatin Calcium (Lipitor) 10 mg PO DAILY [facility] Last Admin: 10/27/18 07:27 Dose: 10 mg Finasteride (Proscar) 5 mg PO DAILY [facility] Last Admin: 10/27/18 07:30 Dose: 5 mg Hydrochlorothiazide (Hydrochlorothiazide) 25 mg PO DAILY [facility] Losartan Potassium (Cozaar) 100 mg PO QPM [facility] Last Admin: 10/26/18 20:30 Dose: 100 mg Metformin HCl (Glucophage) 1,000 mg PO .BREAKFAST [facility] Ptom Losartan [ (Cozaar] 100 Mg Tab) 50 mg PO QAM [facility] Last Admin: 10/27/18 07:28 Dose: 50 mg Ptom Magnesium (250 Mg) 250 mg PO BID [facility] Last Admin: 10/27/18 07:28 Dose: 250 mg Ptom Metoprolol (Tartrate 100 Mg) 100 mg PO BID [facility] Last Admin: 10/27/18 07:29 Dose: 100 mg Ptom Hydrochlorothiazide 50mg 50 mg PO DAILY [facility] Last Admin: 10/27/18 07:27 Dose: 50 mg Ptom Metformin (1000 Mg) 1,000 mg PO DAILY [facility] Last Admin: 10/27/18 07:29 Dose: 1,000 mg Pantoprazole Sodium (Protonix) 40 mg PO DAILY [facility] Last Admin: 10/27/18 07:30 Dose: 40 mg Sodium Chloride (Saline Flush) 10 ml FLUSH ASDIRECTED PRN PRN Reason: Keep Vein Open Temazepam (Restoril) 15 mg PO BEDTIME PRN PRN Reason: Insomnia Last Admin: 10/26/18 22:21 Dose: 15 mg - Exam General: Reports: Alert, Oriented HEENT: Reports: Mucous Membr. Moist/[place] Neck: Reports: Supple Lungs: Reports: Clear to Auscultation, Normal Respiratory Effort Cardiovascular: Reports: Regular Rate, Regular Rhythm GI/Abdominal Exam: Normal Bowel Sounds, Soft, Non-Tender Extremities: Normal Inspection, No Pedal Edema Skin: Reports: Warm, Dry Neurological: Reports: No New Focal Deficit
== END 2018-10-27 10:00 | disposition home or self-care (01) ==
LOC: CC.ED 14:39 → UNDOADMOB 15:41 → CC.MS 15:41
PROVIDERS: ADMIT Physician Assistant Medical; ATTEND Family Medicine
DX: I48.1 Persistent atrial fibrillation (principal); E78.00 Pure hypercholesterolemia, unspecified; I10 Essential (primary) hypertension; K57.30 Diverticulosis of large intestine without perforation or abscess without bleeding; K21.9 Gastro-esophageal reflux disease without esophagitis; K44.9 Diaphragmatic hernia without obstruction or gangrene; M19.90 Unspecified osteoarthritis, unspecified site; G89.29 Other chronic pain; M54.2 Cervicalgia; E11.9 Type 2 diabetes mellitus without complications; Z88.0 Allergy status to penicillin; Z88.2 Allergy status to sulfonamides; Z88.8 Allergy status to other drugs, medicaments and biological substances; Z91.011 Allergy to milk products; Z79.899 Other long term (current) drug therapy; Z79.82 Long term (current) use of aspirin; Z79.84 Long term (current) use of oral hypoglycemic drugs; Z79.01 Long term (current) use of anticoagulants
CPT/HCPCS: 36415; 71046; 80048; 82550; 82962; 83615; 84484; 85025; 85610; 85730; 93005; 93306; 99285; A9270-GY; G0378

== ENCOUNTER 2019-09-13 13:19 | Emergency (ER) | payer MEDICARE, OTHER ==
[2019-09-13 13:48] VITALS: BP 119/52; PULSE 76
--- NOTE | 2019-09-13 14:33 | EDM.PDOC ---
ED HPI GENERAL MEDICAL PROBLEM - General Chief Complaint: Respiratory Problem Stated Complaint: SOB Time Seen by Provider: 09/13/19 14:20 Source of Information: Reports: Patient, Family History Limitations: Reports: No Limitations - History of Present Illness INITIAL COMMENTS - FREE TEXT/NARRATIVE: Was shoveling snow on Tuesday and was fine until he was done and went in the house. He has been SOB since that time. Does have a cough that is dry and hacky. Denies any chest pain. 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 No fever or chills. Came in today as he told his daughter about it and they called Dr. Puente's office who told him to come to the ER. Doesn't feel that he has become any worse since Tuesday. Onset Date: 09/09/19 Location: Reports: Chest Worsens with: Reports: Movement Associated Symptoms: Reports: Cough, Shortness of Breath. Denies: Chest Pain, cough w sputum - Related Data Allergies Allergy/AdvReac Type Severity Reaction Status Date / Time Penicillins Allergy Intermediate Swelling Verified 09/13/19 13:43 Sulfa (Sulfonamide Allergy Intermediate Nausea Verified 09/13/19 13:43 Antibiotics) lactose Allergy Other Verified 09/13/19 13:43 niacin Allergy Burning Verified 09/13/19 13:43 Home Meds: Home Meds Loratadine [Claritin] 10 mg PO DAILY 02/13/14 [History] Cholecalciferol (Vitamin D3) [Vitamin D3] 2,000 unit PO DAILY 02/15/14 [History] Finasteride [Proscar] 5 mg PO DAILY 02/15/14 [History] Losartan [Cozaar] 100 mg PO QPM 02/15/14 [History] Metoprolol Tartrate 100 mg PO BID 02/15/14 [History] Vitamin B Complex [B Complex] 1 each PO DAILY 02/15/14 [History] amLODIPine [Norvasc] 10 mg PO DAILY 02/15/14 [History] hydroCHLOROthiazide [Hydrochlorothiazide] 25 mg PO DAILY 02/15/14 [History] atorvaSTATin [Lipitor] 10 mg PO DAILY 08/20/15 [History] metFORMIN HCl [Metformin HCl] 1,000 mg PO QAM 01/13/17 [History] Ascorbic Acid [Vitamin C] 500 mg PO DAILY 11/03/17 [History] Betamethasone Dipropionate [Diprosone 0.05% Oint] 1 applic TOP ASDIRECTED PRN [History] Clotrimazole [Lotrimin AF 1% Crm] 1 applic TOP ASDIRECTED PRN 11/03/17 [History] Folic Acid 1 mg PO DAILY 11/03/17 [History] Magnesium 500 mg PO BID 10/25/18 [History] Pantoprazole Sodium 40 mg PO DAILY 10/25/18 [History] Apixaban [Eliquis] 5 mg PO DAILY #30 tablet 10/27/18 [Rx] Past Medical History HEENT History: Reports: Glaucoma, Impaired Vision, Other (See Below) Other HEENT History: WEARS CORRECTIVE LENS Cardiovascular History: Reports: High Cholesterol, Hypertension Other Cardiovascular History: CAROTID VASCULAR DISEASE Respiratory History: Reports: None Gastrointestinal History: Reports: Colon Polyp, Diverticulosis, Gastritis, GERD , Hiatal Hernia, Other (See Below) Other Gastrointestinal History: LACTOSE INTOLERANCE. HEPATIC STEATOSIS. HX OF 'RECTAL HYPERPLASTIC POLYP' Genitourinary History: Reports: BPH Musculoskeletal History: Reports: Arthritis, Neck Pain, Chronic Neurological History: Reports: None Psychiatric History: Reports: None Endocrine/Metabolic History: Reports: Diabetes, Type II Hematologic History: Reports: None Immunologic History: Reports: None Oncologic (Cancer) History: Reports: None Dermatologic History: Reports: None - Infectious Disease History Infectious Disease History: Reports: Chicken Pox, Hepatitis non A,B,C, Measles, Mumps - Past Surgical History HEENT Surgical History: Reports: None, Cataract Surgery Cardiovascular Surgical History: Reports: Carotid Endarterectomy, Coronary Artery Bypass Respiratory Surgical History: Reports: None GI Surgical History: Reports: Cholecystectomy, Colonoscopy, EGD, Polypectomy Endocrine Surgical History: Reports: None Neurological Surgical History: Reports: None Musculoskeletal Surgical History: Reports: None Oncologic Surgical History: Reports: None Dermatological Surgical History: Reports: None Social & Family History - Family History HEENT: Reports: Allergic Rhinitis, Hearing Impairment Cardiac: Reports: Afib, Bypass Respiratory: Reports: Sleep Apnea GI: Reports: GERD Musculoskeletal: Reports: Arthritis - Tobacco Use Smoking Status *Q: Former Smoker Used Tobacco, but Quit: Yes Month/Year Tobacco Last Used: 10/1965 - Caffeine Use Caffeine Use: Reports: Coffee, Soda Other Caffeine Use: TWO CUPS DAILY - Recreational Drug Use Recreational Drug Use: No - Living Situation & Occupation Living situation: Reports: , with Spouse Occupation: Retired ED ROS GENERAL - Review of Systems Review Of Systems: See Below Constitutional: Denies: Fever, Chills, Weakness HEENT: Reports: No Symptoms Respiratory: Reports: Shortness of Breath, Cough. Denies: Sputum Cardiovascular: Reports: Edema. Denies: Chest Pain GI/Abdominal: Reports: No Symptoms Musculoskeletal: Reports: No Symptoms Skin: Reports: No Symptoms Neurological: Reports: No Symptoms ED EXAM, GENERAL - Physical Exam Exam: See Below Exam Limited By: No Limitations General Appearance: Alert, WD/WN, No Apparent Distress Ears: Normal External Exam, Normal Canal, Normal TMs Nose: Normal Inspection Throat/Mouth: Normal Inspection, Normal Oropharynx Head: Atraumatic, Normocephalic Neck: Normal Inspection, Supple, Non-Tender, Full Range of Motion Respiratory/Chest: No Respiratory Distress, Lungs Clear, Normal Breath Sounds, No Accessory Muscle Use, Chest Non-Tender Cardiovascular: Normal Peripheral Pulses, Irregularly Irregular GI/Abdominal: Normal Bowel Sounds, Soft, Non-Tender Back Exam: Normal Inspection, Full Range of Motion Extremities: Normal Inspection, Normal Range of Motion, Non-Tender, Normal Capillary Refill, Pedal Edema (1+ edema to feet bilaterally.) Neurological: Alert, Oriented Psychiatric: Normal Affect Skin Exam: Warm, Dry, Intact, Normal Color Course - Vital Signs Last Recorded V/S: Last Vital Signs Temp 97.2 F 09/13/19 13:40 Pulse 76 09/13/19 13:40 Resp 22 H 09/13/19 13:40 BP 119/52 L 09/13/19 13:40 Pulse Ox 94 L 09/13/19 13:40 - Orders/Labs/Meds Orders: Active Orders 24 hr Category Date Time Status CXR [Chest 2V] [CR] Stat Exams 09/13/19 13:56 Taken C-REACTIVE PROTEIN [CHEM] Stat Lab 09/13/19 13:56 Ordered COMPREHENSIVE METABOLIC PN,CMP [CHEM] Stat Lab 09/13/19 13:56 Ordered CREATINE KINASE,CK [CHEM] Stat Lab 09/13/19 13:56 Ordered LACTATE DEHYDROGENASE,LDH [CHEM] Stat Lab 09/13/19 13:56 Ordered TROPONIN I [CHEM] Stat Lab 09/13/19 13:56 Ordered Labs: Laboratory Tests 09/13/19 09/13/19 Range/Units 13:56 13:56 WBC 10.2 H (5.0-10.0) 10^3/uL RBC 4.71 (4.50-6.00) 10^6/uL Hgb 15.2 (14.0-18.0) g/dL Hct 44.9 (40.0-54.0) % MCV 95.3 H (82.0-94.0) fL MCH 32.3 H (27.0-32.0) pg MCHC 33.9 (33.0-38.0) g/dL RDW Coeff of [place]vis 14.1 (11.0-15.0) % Plt Count 255 (150-400) 10^3/uL Neut % (Auto) 64.4 (35-85) % Lymph % (Auto) 20.0 (10-55) % [place] % (Auto) 12.9 (0-16) % Eos % (Auto) 2.3 (0-5) % Baso % (Auto) 0.4 (0-3) % Neut # (Auto) 6.59 (1.80-7.00) 10^3/uL Lymph # (Auto) 2.05 (1.00-4.80) 10^3/uL [place] # (Auto) 1.32 H (0.00-0.80) 10^3/uL Eos # (Auto) 0.24 (0.00-0.45) 10^3/uL Baso # (Auto) 0.04 10^3/uL D-Dimer, Quantitative 0.52 H (0.00-0.50) - Re-Assessments/Exams Free Text/Narrative Re-Assessment/Exam: 09/13/19 15:00 Discussed normal labs and CXR with pt, and daughter. Will give solumedrol at this time and discharge Departure - Departure Time of Disposition: 15:01 Disposition: Home, Self-Care 01 Condition: Good Clinical Impression: RAD (reactive airway disease) Qualifiers: Asthma severity: mild Asthma persistence: intermittent Asthma complication type : uncomplicated Qualified Code(s): J45.20 - Mild intermittent asthma, uncomplicated Atrial fibrillation Qualifiers: Atrial fibrillation type: persistent Qualified Code(s): I48.1 - Persistent atrial fibrillation - Discharge Information *PRESCRIPTION DRUG MONITORING PROGRAM REVIEWED*: Not Applicable *COPY OF PRESCRIPTION DRUG MONITORING REPORT IN PATIENT ABIEL: Not Applicable Additional Instructions: No heavy lifting If outside should wear face mask return if any change in symptoms including fever, increase in Shortness of breathe, productive cough, chest pain etc. Follow up as needed. - Problem List & Annotations (1) RAD (reactive airway disease) SNOMED Code(s): 603080828877 Code(s): J45.909 - UNSPECIFIED ASTHMA, UNCOMPLICATED Status: Acute Priority: High Qualifiers: Asthma severity: mild Asthma persistence: intermittent Asthma complication type: uncomplicated Qualified Code(s): J45.20 - Mild intermittent asthma, uncomplicated (2) Atrial fibrillation SNOMED Code(s): 56259855 Code(s): I48.91 - UNSPECIFIED ATRIAL FIBRILLATION Status: Chronic Priority: Medium Qualifiers: Atrial fibrillation type: longstanding persistent Qualified Code(s): I48.11 - Longstanding persistent atrial fibrillation - Problem List Review Problem List Initiated/Reviewed/Updated: Yes - My Orders Last 24 Hours: My Active Orders 09/13/19 13:56 CXR [Chest 2V] [CR] Stat C-REACTIVE PROTEIN [CHEM] Stat COMPREHENSIVE METABOLIC PN,CMP [CHEM] Stat CREATINE KINASE,CK [CHEM] Stat LACTATE DEHYDROGENASE,LDH [CHEM] Stat TROPONIN I [CHEM] Stat - Assessment/Plan Last 24 Hours: My Active Orders 09/13/19 13:56 CXR [Chest 2V] [CR] Stat C-REACTIVE PROTEIN [CHEM] Stat COMPREHENSIVE METABOLIC PN,CMP [CHEM] Stat CREATINE KINASE,CK [CHEM] Stat LACTATE DEHYDROGENASE,LDH [CHEM] Stat TROPONIN I [CHEM] Stat
[2019-09-13 14:41] LABS: CHLORIDE,CL 101 mEq/L (98-106); SODIUM,NA 141 mEq/L (136-145)
[2019-09-13] MEDS ORDERED: methylPREDNISolone Acetate 80 MG/ML SDV IM ONE (15:01)
== END 2019-09-13 15:15 | disposition home or self-care (01) ==
LOC: CC.ED 13:19
DX: J45.20 Mild intermittent asthma, uncomplicated (principal); I48.19 Other persistent atrial fibrillation; E11.9 Type 2 diabetes mellitus without complications; I10 Essential (primary) hypertension; Z88.2 Allergy status to sulfonamides; Z88.0 Allergy status to penicillin; Z91.011 Allergy to milk products; Z88.8 Allergy status to other drugs, medicaments and biological substances; Z79.899 Other long term (current) drug therapy; Z90.49 Acquired absence of other specified parts of digestive tract; Z87.891 Personal history of nicotine dependence
CPT/HCPCS: 36415; 71046; 80053; 82550; 83615; 84484; 85025; 85379; 86140; 93005; 96372; 99284; 99285; J1040

== ENCOUNTER 2020-05-23 17:29 | Emergency (ER) | payer MEDICARE, OTHER ==
[2020-05-23 17:42] VITALS: BP 168/95; PULSE 88
[2020-05-23] MEDS ORDERED: Diphtheria,Pertussis(Acell),Tetanus Vaccine 0.5 ML Syringe IM ONE (17:45)
--- NOTE | 2020-05-23 17:55 | EDM.PDOC ---
ED HPI GENERAL MEDICAL PROBLEM - General Chief Complaint: Trauma Stated Complaint: fall Time Seen by Provider: 05/23/20 17:36 Source of Information: Reports: Patient History Limitations: Reports: No Limitations - History of Present Illness INITIAL COMMENTS - FREE TEXT/NARRATIVE: This patient is an 85 year old male that presents to the ER. Patient is alert and oriented. GCS 15. Patient reports that he just back from [place], was at home and leaned down to leash the dog when he fell forward. Patient reports that when he fell to the floor, he hit the left side of his head. He reports having a headache to the left side where he hit his head. Patient reports that after he fell he also had right sided chest pain that is worse with movement. Patient report its due to his fall. Patient reports that he also has some mild left forearm pain and skin injury as well. The patient reports he was not able to get up by himself, his came to him. His and daughter helped him up from the concrete ground. Patient reports that he did not have loc, n, v, vision changes, neck pain, unilateral weaknesses, general weakness, back pain, abd pain, urinary/bowel changes or incontinence. He ambulated into the ER per RN. The patient only complaints is left headache at site of injury, right lateral chest summers with movement, and left forearm pain over skin tears. Due to patient age, Eliquis, fall, a trauma code was called. Labs were ordered, CXR with ribs, head/cervical ct, and left forearm xray. Onset: Today Onset Date: 05/23/20 Duration: Hour(s): (1) Location: Reports: Head, Chest, Upper Extremity, Left Front/Back Body Image: 1 - pain, site of injury 2 - pain, mild tenderness. 3 - pain,mild tenderness. 4 - skin tear 5 - skin tear Severity: Mild Improves with: Reports: Immobilization Worsens with: Reports: Movement Associated Symptoms: Reports: Chest Pain (worse with movement), Headaches. Denies: Confusion, Cough, cough w sputum, Diaphoresis, Fever/Chills, Loss of Appetite, Malaise, Nausea/Vomiting, Rash, Seizure, Shortness of Breath, Syncope, Weakness Chest Pain Score (Numeric/FACES): 4 - Related Data Allergies Allergy/AdvReac Type Severity Reaction Status Date / Time Penicillins Allergy Intermediate Swelling Verified 05/23/20 17:46 Sulfa (Sulfonamide Allergy Intermediate Nausea Verified 05/23/20 17:46 Antibiotics) lactose Allergy Other Verified 05/23/20 17:46 niacin Allergy Burning Verified 05/23/20 17:46 Home Meds: Home Meds Loratadine [Claritin] 10 mg PO DAILY 02/13/14 [History] Cholecalciferol (Vitamin D3) [Vitamin D3] 2,000 unit PO DAILY 02/15/14 [History] Finasteride [Proscar] 5 mg PO DAILY 02/15/14 [History] Losartan [Cozaar] 50 mg PO QPM 02/15/14 [History] Metoprolol Tartrate 100 mg PO BID 02/15/14 [History] Vitamin B Complex [B Complex] 1 each PO DAILY 02/15/14 [History] atorvaSTATin [Lipitor] 10 mg PO DAILY 08/20/15 [History] metFORMIN HCl [Metformin HCl] 500 mg PO QAM 01/13/17 [History] Ascorbic Acid [Vitamin C] 500 mg PO DAILY 11/03/17 [History] Betamethasone Dipropionate [Diprosone 0.05% Oint] 1 applic TOP ASDIRECTED PRN 11/03/17 [History] Clotrimazole [Lotrimin AF 1% Crm] 1 applic TOP ASDIRECTED PRN 11/03/17 [History] Folic Acid 1 mg PO DAILY 11/03/17 [History] Magnesium 500 mg PO BID 10/25/18 [History] Pantoprazole Sodium 40 mg PO DAILY 10/25/18 [History] Apixaban [Eliquis] 5 mg PO DAILY #30 tablet 10/27/18 [Rx] Spironolactone [Aldactone] 25 mg PO DAILY PRN 05/23/20 [History] Past Medical History HEENT History: Reports: Glaucoma, Impaired Vision, Other (See Below) Other HEENT History: WEARS CORRECTIVE LENS Cardiovascular History: Reports: High Cholesterol, Hypertension Other Cardiovascular History: CAROTID VASCULAR DISEASE Respiratory History: Reports: None Gastrointestinal History: Reports: Colon Polyp, Diverticulosis, Gastritis, GERD, Hiatal Hernia, Other (See Below) Other Gastrointestinal History: LACTOSE INTOLERANCE. HEPATIC STEATOSIS. HX OF 'RECTAL HYPERPLASTIC POLYP' Genitourinary History: Reports: BPH Musculoskeletal History: Reports: Arthritis, Neck Pain, Chronic Neurological History: Reports: None Psychiatric History: Reports: None Endocrine/Metabolic History: Reports: Diabetes, Type II Hematologic History: Reports: None Immunologic History: Reports: None Oncologic (Cancer) History: Reports: None Dermatologic History: Reports: None - Infectious Disease History Infectious Disease History: Reports: Chicken Pox, Hepatitis non A,B,C, Measles, Mumps - Past Surgical History HEENT Surgical History: Reports: None, Cataract Surgery Cardiovascular Surgical History: Reports: Carotid Endarterectomy, Coronary Artery Bypass Respiratory Surgical History: Reports: None GI Surgical History: Reports: Cholecystectomy, Colonoscopy, EGD, Polypectomy Endocrine Surgical History: Reports: None Neurological Surgical History: Reports: None Musculoskeletal Surgical History: Reports: None Oncologic Surgical History: Reports: None Dermatological Surgical History: Reports: None Social & Family History - Family History HEENT: Reports: Allergic Rhinitis, Hearing Impairment Cardiac: Reports: Afib, Bypass Respiratory: Reports: Sleep Apnea GI: Reports: GERD Musculoskeletal: Reports: Arthritis - Caffeine Use Caffeine Use: Reports: Coffee, Soda Other Caffeine Use: TWO CUPS DAILY - Living Situation & Occupation Living situation: Reports: , with Spouse Occupation: Retired Review of Systems - Review of Systems Review Of Systems: See Below Constitutional: Reports: No Symptoms Eyes: Reports: No Symptoms Ears: Reports: No Symptoms Nose: Reports: No Symptoms Mouth/Throat: Reports: No Symptoms Respiratory: Reports: No Symptoms Cardiovascular: Reports: Chest Pain (right lateral chest pain), Irregular Heart Rate (daughter reports patient is supposed to see battery technician soon for possible pacemaker. No complaint of bradycardia in ER.), Lightheadedness (with sitting up after he fell per patient). Denies: Edema, Palpitations, Syncope GI/Abdominal: Reports: No Symptoms. Denies: Abdominal Pain, Nausea, Vomiting Genitourinary: Reports: No Symptoms Musculoskeletal: Reports: Arm Pain (left forearm pain). Denies: Neck Pain Skin: Reports: Wound (couple small skin tears LUE) Neurological: Reports: Headache. Denies: Confusion, Dizziness, Numbness, Pre- Existing Deficit, Seizure, Syncope, Tingling, Tremors, Trouble Speaking, Difficulty Walking, Weakness, Change in Speech, Gait Disturbance Psychiatric: Reports: No Symptoms. Denies: Confusion ED EXAM, GENERAL - Physical Exam Exam: See Below Exam Limited By: No Limitations General Appearance: Alert, WD/WN, No Apparent Distress Eye Exam: Bilateral Eye: EOMI, Normal Inspection, PERRL Ears: Normal External Exam, Normal Canal, Hearing Grossly Normal, Normal TMs Ear Exam: Bilateral Ear: Auricle Normal, Canal Normal, TM normal Nose: Normal Inspection, Normal Mucosa, No Blood Throat/Mouth: Normal Inspection, Normal Lips, Normal Teeth, Normal Gums, Normal Oropharynx, Normal Voice, No Airway Compromise Head: Atraumatic, Normocephalic. No: Facial Swelling, Facial Tenderness, Sinus Tenderness Neck: Normal Inspection, Supple, Non-Tender, Full Range of Motion. No: Limited Range of Motion, Tender Lateral, Tender Midline Respiratory/Chest: No Respiratory Distress, Lungs Clear, Normal Breath Sounds, No Accessory Muscle Use, Other (Mild Right lateral rib pain over the 10th rib. No crepitus. ). No: Respiratory Distress, Decreased Breath Sounds, Wheezing, Pleural Rub, Accessory Muscle Use, Retractions, Splinting, Prolonged Expiration Cardiovascular: Irregularly Irregular (rate 70s). No: Bradycardia Peripheral Pulses: 2+: Radial (L), Radial (R), Posterior Tibial (L), Posterior Tibial (R), Dorsalis Pedis (L), Dorsalis Pedis (R) GI/Abdominal: Normal Bowel Sounds, Soft, Non-Tender, No Organomegaly, No Distention, No Abnormal Bruit, No Mass, Pelvis Stable (Male) Exam: Deferred Rectal (Males) Exam: Deferred Back Exam: Normal Inspection, Full Range of Motion. No: CVA Tenderness (L), CVA Tenderness (R), Decreased Range of Motion, Muscle Spasm, Paraspinal Tenderness, Vertebral Tenderness Extremities: Normal Range of Motion, No Pedal Edema, Normal Capillary Refill, Arm Pain (mild left forearm distal tenderness over skin tear. ROM intact. Neurovascular intact. Pulses +2, cap refill < 2 sec. Sensory/motor function intact. ) Neurological: Alert, Oriented, CN II-XII Intact, Normal Cognition, Normal Gait, No Motor/Sensory Deficits Psychiatric: Normal Affect, Normal Mood Skin Exam: Warm, Dry, Normal Color, No Rash, Wound/Incision (2 small skin tears to the LUE.) EKG INTERPRETATION EKG Date: 05/23/20 Time: 17:50 Rhythm: A-Fib Rate (Beats/Min): 79 Comparison: No Change (2018) Course - Vital Signs Last Recorded V/S: Last Vital Signs Temp 98.0 F 05/23/20 17:39 Pulse 88 05/23/20 17:39 Resp 18 05/23/20 17:39 BP 168/95 H 05/23/20 17:39 Pulse Ox 100 05/23/20 17:39 - Orders/Labs/Meds Orders: Active Orders 24 hr Category Date Time Status Vaccines to be Administered [RC] PER UNIT ROUTINE Care 05/23/20 17:45 Active Cervical Spine wo Cont [CT] Stat Exams 05/23/20 17:48 Taken Forearm 2V Lt [CR] Stat Exams 05/23/20 17:45 Taken Head wo Cont [CT] Stat Exams 05/23/20 17:45 Taken Ribs 2V w Chest Rt [CR] Stat Exams 05/23/20 17:45 Taken TROPONIN I [CHEM] Stat Lab 05/23/20 21:00 Ordered Sodium Chloride 0.9% [Normal Saline] 500 ml Med 05/23/20 18:30 Active IV .BOLUS Medication Orders Sodium Chloride (Normal Saline) 500 mls @ 500 mls/hr IV .BOLUS CHANEL Labs: Laboratory Tests 05/23/20 05/23/20 05/23/20 Range/Units 17:45 17:45 17:45 WBC 10.3 H (5.0-10.0) 10^3/uL RBC 4.74 (4.50-6.00) 10^6/uL Hgb 16.0 (14.0-18.0) g/dL Hct 46.2 (40.0-54.0) % MCV 97.5 H (82.0-94.0) fL MCH 33.8 H (27.0-32.0) pg MCHC 34.6 (33.0-38.0) g/dL RDW Coeff of Jarvis 12.7 (11.0-15.0) % Plt Count 225 (150-400) 10^3/uL Neut % (Auto) 68.2 (35-85) % Lymph % (Auto) 18.2 (10-55) % [place] % (Auto) 12.1 (0-16) % Eos % (Auto) 1.3 (0-5) % Baso % (Auto) 0.2 (0-3) % Neut # (Auto) 7.06 H (1.80-7.00) 10^3/uL Lymph # (Auto) 1.88 (1.00-4.80) 10^3/uL [place] # (Auto) 1.25 H (0.00-0.80) 10^3/uL Eos # (Auto) 0.13 (0.00-0.45) 10^3/uL Baso # (Auto) 0.02 10^3/uL PT 11.1 (9.7-12.3) SEC INR 1.10 (0.92-1.18) Sodium 131 L (136-145) mEq/L Potassium 5.1 H D (3.5-5.0) mEq/L Chloride 97 L (98-106) mEq/L Carbon Dioxide 28 (21-32) mmol/L BUN 16 (7-18) mg/dL Creatinine 1.1 (0.7-1.3) mg/dL Est Cr Clr Drug Dosing 42.71 mL/min Estimated GFR (MDRD) > 60 (>=60) mL/min Glucose 103 H (75-99) mg/dL Calcium 9.5 (8.4-10.1) mg/dL Total Bilirubin 1.0 (0.0-1.0) mg/dL AST 57 H (15-37) U/L ALT 76 (12-78) U/L Alkaline Phosphatase 76 (46-116) U/L Lactate Dehydrogenase 224 H (100-190) U/L Creatine Kinase 55 (35-232) U/L Troponin I < 0.017 (0.00-0.06) ng/mL Total Protein 7.4 (6.4-8.2) g/dL Albumin 3.4 (3.4-5.0) g/dL Amylase 78 (25-115) U/L Lipase 361 (73-393) U/L Urine Color (YELLOW) Urine Appearance (CLEAR) Urine pH (4.5-8.0) Ur Specific [place] (1.003-1.020) Urine Protein (NEGATIVE) mg/dL Urine Glucose (UA) (NEGATIVE) mg/dL Urine Ketones (NEGATIVE) mg/dL Urine Occult Blood (NEGATIVE) Urine Nitrite (NEGATIVE) Urine Bilirubin (NEGATIVE) Urine Urobilinogen (0.2-1.0) EU/dL Ur Leukocyte Esterase (NEGATIVE) Urine RBC (0-5) /HPF Urine WBC (0-5) /HPF Ur Squamous Epith Cells (NOT SEEN) /HPF 05/23/20 Range/Units 18:25 WBC (5.0-10.0) 10^3/uL RBC (4.50-6.00) 10^6/uL Hgb (14.0-18.0) g/dL Hct (40.0-54.0) % MCV (82.0-94.0) fL MCH (27.0-32.0) pg MCHC (33.0-38.0) g/dL RDW Coeff of Jarvis (11.0-15.0) % Plt Count (150-400) 10^3/uL Neut % (Auto) (35-85) % Lymph % (Auto) (10-55) % [place] % (Auto) (0-16) % Eos % (Auto) (0-5) % Baso % (Auto) (0-3) % Neut # (Auto) (1.80-7.00) 10^3/uL Lymph # (Auto) (1.00-4.80) 10^3/uL [place] # (Auto) (0.00-0.80) 10^3/uL Eos # (Auto) (0.00-0.45) 10^3/uL Baso # (Auto) 10^3/uL PT (9.7-12.3) SEC INR (0.92-1.18) Sodium (136-145) mEq/L Potassium (3.5-5.0) mEq/L Chloride (98-106) mEq/L Carbon Dioxide (21-32) mmol/L BUN (7-18) mg/dL Creatinine (0.7-1.3) mg/dL Est Cr Clr Drug Dosing mL/min Estimated GFR (MDRD) (>=60) mL/min Glucose (75-99) mg/dL Calcium (8.4-10.1) mg/dL Total Bilirubin (0.0-1.0) mg/dL AST (15-37) U/L ALT (12-78) U/L Alkaline Phosphatase (46-116) U/L Lactate Dehydrogenase (100-190) U/L Creatine Kinase (35-232) U/L Troponin I (0.00-0.06) ng/mL Total Protein (6.4-8.2) g/dL Albumin (3.4-5.0) g/dL Amylase (25-115) U/L Lipase (73-393) U/L Urine Color Yellow (YELLOW) Urine Appearance Clear (CLEAR) Urine pH 7.5 (4.5-8.0) Ur Specific [place] 1.020 (1.003-1.020) Urine Protein Negative (NEGATIVE) mg/dL Urine Glucose (UA) Negative (NEGATIVE) mg/dL Urine Ketones Negative (NEGATIVE) mg/dL Urine Occult Blood Negative (NEGATIVE) Urine Nitrite Negative (NEGATIVE) Urine Bilirubin Negative (NEGATIVE) Urine Urobilinogen 0.2 (0.2-1.0) EU/dL Ur Leukocyte Esterase Negative (NEGATIVE) Urine RBC Not seen (0-5) /HPF Urine WBC Not seen (0-5) /HPF Ur Squamous Epith Cells Few H (NOT SEEN) /HPF Meds: Medications Generic Name Dose Route Start Last Admin Trade Name Freq PRN Reason Stop Dose Admin Sodium Chloride 500 mls @ 500 mls/hr 05/23/20 18:30 Normal Saline IV .BOLUS CHANEL Discontinued Medications Generic Name Dose Route Start Last Admin Trade Name Freq PRN Reason Stop Dose Admin Diphtheria/Tetanus/Acell Pertussis 0.5 ml 05/23/20 17:45 05/23/20 18:39 Adacel IM 05/23/20 17:46 0.5 ml .ONCE ONE Administration - Radiology Interpretation Free Text/Narrative:: CXR right ribs: No fracture, no pneumo, no hemothorax seen Left forearm: No acute fracture seen Head/Cervical CT: No acute abnormality in head. Chronic fractures, but no evidence of acute fracture cervical, if pain, may MRI. will not MRI. - Re-Assessments/Exams Free Text/Narrative Re-Assessment/Exam: 05/23/20 18:20 Reviewed labs. K+ barely elevated at 5.1, NA low at 131, low chloride 97, will give a 500 NS bolus. 05/23/20 18:[address] reports. Reviewed xrays, no acute findings. Patient reports his right sided chest pain is better, now a 3/10. Patient describes it as a pressure. That pressure pain is worse with palpation and movement. Since patient described it has a pressure pain, and patient cardiac history, will repeat a troponin and extend ER. Continuing trauma code until head/cervical ct read. 05/23/20 19:11 Discussed in great detail patient with daughter. Also with patient. Understand treatment plan and everything that was done. No questions. Will repeat the troponin, if negative can discharge. Patient reports pain is much better all over. GCS 15. Departure - Departure Time of Disposition: 21:30 Disposition: Home, Self-Care 01 Condition: Fair Clinical Impression: Head injury Qualifiers: Encounter type: initial encounter Qualified Code(s): S09.90XA - Unspecified injury of head, initial encounter Fall Qualifiers: Encounter type: initial encounter Qualified Code(s): W19.XXXA - Unspecified fall, initial encounter Skin tear of forearm without complication Qualifiers: Encounter type: initial encounter Laterality: left Qualified Code(s): S51.812A - Laceration without foreign body of left forearm, initial encounter Contusion Qualifiers: Encounter type: initial encounter Contusion area: forearm Laterality: left Qualified Code(s): S50.12XA - Contusion of left forearm, initial encounter Chest wall muscle strain Qualifiers: Encounter type: initial encounter Qualified Code(s): S29.011A - Strain of muscle and tendon of front wall of thorax, initial encounter - Discharge Information *PRESCRIPTION DRUG MONITORING PROGRAM REVIEWED*: Not Applicable *COPY OF PRESCRIPTION DRUG MONITORING REPORT IN PATIENT ABIEL: Not Applicable Instructions: Skin Tear, [id number], Head Injury, Adult, Muscle Strain, E asy-to-Read, Rib Contusion Referrals: Eulogio Puente MD [Primary Care Provider] - Forms: ED Department Discharge Additional Instructions: Followup with your primary care provider this week for a recheck Please return to the ER for worsening of condition or emergent concerns such as confusion, unable to awake, seizures, vomiting, or other concerns Ice to painful areas as needed Wash wounds with soap and water gently, rinse, pat dry. Keep clean and covered In the ER you got a tetanus shot Tylenol for pain Continue your Eliquis and other medications as prescribed Incentive spirometer every 2 hours while awake as needed Sepsis Event Note (ED) - Evaluation Sepsis Screening Result: No Definite Risk - Focused Exam Vital Signs: Vital Signs Temp Pulse Resp BP Pulse Ox 05/23/20 17:39 98.0 F 88 18 168/95 H 100 - My Orders Last 24 Hours: My Active Orders 05/23/20 17:45 Vaccines to be Administered [RC] PER UNIT ROUTINE Forearm 2V Lt [CR] Stat Head wo Cont [CT] Stat Ribs 2V w Chest Rt [CR] Stat 05/23/20 17:48 Cervical Spine wo Cont [CT] Stat 05/23/20 18:30 Sodium Chloride 0.9% [Normal Saline] 500 ml IV .BOLUS 05/23/20 21:00 TROPONIN I [CHEM] Stat - Assessment/Plan Last 24 Hours: My Active Orders 05/23/20 17:45 Vaccines to be Administered [RC] PER UNIT ROUTINE Forearm 2V Lt [CR] Stat Head wo Cont [CT] Stat Ribs 2V w Chest Rt [CR] Stat 05/23/20 17:48 Cervical Spine wo Cont [CT] Stat 05/23/20 18:30 Sodium Chloride 0.9% [Normal Saline] 500 ml IV .BOLUS 05/23/20 21:00 TROPONIN I [CHEM] Stat Plan: PLEASE SEE RN NOTE FOR PFSH
[2020-05-23 18:11] LABS: CHLORIDE,CL 97 mEq/L (98-106); SODIUM,NA 131 mEq/L (136-145)
[2020-05-23] MEDS ORDERED: Sodium Chloride 0.9% 500 ML IV SCH (18:30)
== END 2020-05-23 21:45 | disposition home or self-care (01) ==
LOC: CC.ED 17:29
DX: S09.90XA Unspecified injury of head, initial encounter (principal); S51.812A Laceration without foreign body of left forearm, initial encounter; S29.011A Strain of muscle and tendon of front wall of thorax, initial encounter; S50.12XA Contusion of left forearm, initial encounter; E11.9 Type 2 diabetes mellitus without complications; I10 Essential (primary) hypertension; E78.00 Pure hypercholesterolemia, unspecified; K21.9 Gastro-esophageal reflux disease without esophagitis; Z23 Encounter for immunization; Z88.0 Allergy status to penicillin; Z88.8 Allergy status to other drugs, medicaments and biological substances; Z88.2 Allergy status to sulfonamides; Z79.899 Other long term (current) drug therapy; W01.10XA Fall on same level from slipping, tripping and stumbling with subsequent striking against unspecified object, initial encounter
CPT/HCPCS: 36415; 70450; 71101-RT; 72125; 73090-LT; 80053; 81001; 82150; 82550; 83615; 83690; 84484; 85025; 85610; 90471; 90715; 93005; 93010; 99284; 99284-25

== ENCOUNTER 2021-02-13 18:17 | Inpatient (IN) | payer MEDICARE, OTHER ==
[2021-02-13] MEDS ORDERED: Diphtheria,Pertussis(Acell),Tetanus Vaccine 0.5 ML Syringe IM ONE (18:28)
--- NOTE | 2021-02-13 18:34 | EDM.PDOC ---
ED HPI GENERAL MEDICAL PROBLEM - General Chief Complaint: General Stated Complaint: Fall, CP Time Seen by Provider: 02/13/21 18:26 Source of Information: Reports: Patient History Limitations: Reports: No Limitations - History of Present Illness INITIAL COMMENTS - FREE TEXT/NARRATIVE: This patient is an 85 year old male that presents to the ER. Patient reports that today he was outside moving the sprinkler trying to water the grass when he fell backwards. He is unsure why he fell backwards. Patient reports hitting the back of his head. Patient reports left sided chest pain that is worse with palpation and movement or sitting up. Patient reports that he crawled about 15 feet to the flag pole, grabbed the rope and pulled himself up to his feet. He reports that he managed to get inside his house. He reports he later told his daughter and she brought him to the ER tonight to be checked out. Patient reports left sided chest pain, mild left elbow pain with abrasion. Patient denies headache, n, v, vision changes, neck pain, back pain, abd pain, urinary/bowel changes. Due to patient fall, hitting head, on Eliquis, a trauma code was called. Patient originally told RN and myself he did not hit his head, but then after my exam and my 2nd time asking, reported he might have hit the back of his head. Onset: Today Onset Date: 02/13/21 Onset Time: 11:30 Location: Reports: Chest, Upper Extremity, Left Severity: Moderate Improves with: Reports: Immobilization Worsens with: Reports: Movement Context: Reports: Other (Fall) Associated Symptoms: Reports: Chest Pain. Denies: Confusion, Cough, cough w sputum, Diaphoresis, Fever/Chills, Headaches, Loss of Appetite, Malaise, Nausea/Vomiting, Rash, Seizure, Shortness of Breath, Syncope, Weakness l neck/chest Pain Score (Numeric/FACES): 9 Left Thoracic Pain Score (Numeric/FACES): 3 - Related Data Allergies Allergy/AdvReac Type Severity Reaction Status Date / Time Penicillins Allergy Intermediate Swelling Verified 02/13/21 21:43 Sulfa (Sulfonamide Allergy Intermediate Nausea Verified 02/13/21 21:43 Antibiotics) lactose Allergy Other Verified 02/13/21 21:43 niacin Allergy Burning Verified 02/13/21 21:43 Home Meds: Home Meds Loratadine [Claritin] 10 mg PO BEDTIME 02/13/14 [History] Cholecalciferol (Vitamin D3) [Vitamin D3] 2,000 unit PO DAILY 02/15/14 [History] Finasteride [Proscar] 5 mg PO BEDTIME 02/15/14 [History] Losartan [Cozaar] 50 mg PO QPM 02/15/14 [History] Metoprolol Tartrate 50 mg PO BID 02/15/14 [History] Vitamin B Complex [B Complex] 1 each PO DAILY 02/15/14 [History] atorvaSTATin [Lipitor] 10 mg PO BEDTIME 08/20/15 [History] Betamethasone Dipropionate [Diprosone 0.05% Oint] 1 applic TOP ASDIRECTED PRN 11/03/17 [History] Clotrimazole [Lotrimin AF 1% Crm] 1 applic TOP ASDIRECTED PRN 11/03/17 [History] Folic Acid 1 mg PO DAILY 11/03/17 [History] Magnesium 500 mg PO BID 10/25/18 [History] Pantoprazole Sodium 40 mg PO DAILY 10/25/18 [History] Apixaban [Eliquis] 5 mg PO DAILY #30 tablet 10/27/18 [Rx] Spironolactone [Aldactone] 25 mg PO DAILY 05/23/20 [History] Ascorbate Calcium [Vitamin C] 500 mg PO DAILY 02/13/21 [History] Latanoprost [Xalatan] 1 drop EYEBOTH BEDTIME 02/13/21 [History] Past Medical History HEENT History: Reports: Glaucoma, Impaired Vision, Other (See Below) Other HEENT History: WEARS CORRECTIVE LENS Cardiovascular History: Reports: High Cholesterol, Hypertension Other Cardiovascular History: CAROTID VASCULAR DISEASE Respiratory History: Reports: None Gastrointestinal History: Reports: Colon Polyp, Diverticulosis, Gastritis, GERD, Hiatal Hernia, Other (See Below) Other Gastrointestinal History: LACTOSE INTOLERANCE. HEPATIC STEATOSIS. HX OF 'RECTAL HYPERPLASTIC POLYP' Genitourinary History: Reports: BPH Musculoskeletal History: Reports: Arthritis, Neck Pain, Chronic Neurological History: Reports: None Psychiatric History: Reports: None Endocrine/Metabolic History: Reports: Diabetes, Type II Hematologic History: Reports: None Immunologic History: Reports: None Oncologic (Cancer) History: Reports: None Dermatologic History: Reports: None - Infectious Disease History Infectious Disease History: Reports: Chicken Pox, Hepatitis non A,B,C, Measles, Mumps - Past Surgical History HEENT Surgical History: Reports: None, Cataract Surgery Cardiovascular Surgical History: Reports: Carotid Endarterectomy, Coronary Artery Bypass Respiratory Surgical History: Reports: None GI Surgical History: Reports: Cholecystectomy, Colonoscopy, EGD, Polypectomy Endocrine Surgical History: Reports: None Neurological Surgical History: Reports: None Musculoskeletal Surgical History: Reports: None Oncologic Surgical History: Reports: None Dermatological Surgical History: Reports: None Social & Family History - Family History HEENT: Reports: Allergic Rhinitis, Hearing Impairment Cardiac: Reports: Afib, Bypass Respiratory: Reports: Sleep Apnea GI: Reports: GERD Musculoskeletal: Reports: Arthritis - Caffeine Use Caffeine Use: Reports: Coffee, Soda Other Caffeine Use: TWO CUPS DAILY - Living Situation & Occupation Living situation: Reports: , with Spouse Occupation: Retired ED ROS GENERAL - Review of Systems Review Of Systems: See Below Constitutional: Reports: No Symptoms HEENT: Reports: No Symptoms Respiratory: Reports: No Symptoms Cardiovascular: Reports: Chest Pain. Denies: Dyspnea on Exertion, Edema, Lightheadedness, Palpitations, Syncope Endocrine: Reports: No Symptoms GI/Abdominal: Reports: No Symptoms : Reports: No Symptoms Musculoskeletal: Reports: No Symptoms Skin: Reports: Bruising (bilateral arms, chronic. ), Wound (superfical abrasion left elbow) Neurological: Reports: No Symptoms Psychiatric: Reports: No Symptoms Hematologic/Lymphatic: Reports: No Symptoms Immunologic: Reports: No Symptoms ED EXAM, GENERAL - Physical Exam Exam: See Below Exam Limited By: No Limitations General Appearance: Alert, WD/WN, No Apparent Distress Eye Exam: Bilateral Eye: EOMI, Normal Inspection, PERRL Ears: Normal External Exam, Normal Canal, Hearing Grossly Normal, Normal TMs Ear Exam: Bilateral Ear: Auricle Normal, Canal Normal, TM normal Nose: Normal Inspection, Normal Mucosa, No Blood Throat/Mouth: Normal Inspection, Normal Lips, Normal Teeth, Normal Gums, Normal Oropharynx, Normal Voice Head: Atraumatic, Normocephalic. No: Facial Swelling, Facial Tenderness, Sinus Tenderness Neck: Normal Inspection, Supple, Non-Tender, Full Range of Motion Respiratory/Chest: No Respiratory Distress, Lungs Clear, Normal Breath Sounds, No Accessory Muscle Use, Other (left anterior chest wall pain. Easily manipulated with palpation, and twisting of the chest. ) Cardiovascular: Normal Peripheral Pulses, Regular Rate, Rhythm, No Edema, No Gallop, No JVD, No Murmur, No Rub Peripheral Pulses: 2+: Radial (L), Radial (R), Posterior Tibial (L), Posterior Tibial (R) GI/Abdominal: Soft, Non-Tender, No Organomegaly, No Distention, Pelvis Stable (Male) Exam: Rash (erythema scrotal rash, erythema rash between thigh folds in groin with white residue consistent with yeast.) Rectal (Males) Exam: Deferred Back Exam: Normal Inspection, Full Range of Motion. No: CVA Tenderness (L), CVA Tenderness (R), Decreased Range of Motion, Muscle Spasm, Paraspinal Tenderness, Vertebral Tenderness Extremities: Normal Range of Motion, No Pedal Edema, Normal Capillary Refill, Other (left elbow pain, mild tenderness. Ecchymosis, to the left elbow, bilateral arms appears chronic and old. ROM intact, pulses +2, cap refill < 2 sec. sensory/motor function intact. ). No: Slow Capillary Refill, Limited Range of Motion Neurological: Alert, Oriented, CN II-XII Intact, Normal Cognition, No Motor/Sensory Deficits, Other (GCS 15, Stroke Score 0) Psychiatric: Normal Affect, Normal Mood Skin Exam: Warm, Dry, Ecchymosis (bilateral arms, bilateral elbows. ), Erythema (scrotal sack, between thigh folds), Wound/Incision (superficial abrasion left elbow) #1 Interpretation EKG Date: 02/13/21 Time: 18:22 Rhythm: A-Fib Rate (Beats/Min): 98 Comparison: No Change Course - Vital Signs Last Recorded V/S: Last Vital Signs Temp 97.6 F 02/14/21 07:33 Pulse 63 02/14/21 07:45 Resp 16 02/14/21 07:33 BP 151/72 H 02/14/21 07:45 Pulse Ox 97 02/14/21 07:33 - Orders/Labs/Meds Orders: Active Orders 24 hr Category Date Time Status Patient Status [ADT] Routine ADT 02/13/21 21:19 Active Antiembolic Devices [RC] 1000,2200 Care 02/13/21 21:19 Active Notify Provider Vital Signs [RC] ASDIRECTED Care 02/13/21 21:19 Active Oxygen Therapy [RC] .PRN Care 02/13/21 21:19 Active Up With Assistance [RC] .PRN Care 02/13/21 21:19 Active Up to Chair [RC] .PRN Care 02/13/21 21:19 Active Vital Signs [RC] 0000,0400,0800,1200,1600,2000 Care 02/13/21 21:19 Active Consistent Carbohydrate Diet [DIET] Diet 02/13/21 Breakfast Active Elbow Min 3V Lt [CR] Stat Exams 02/13/21 18:34 Taken Head wo Cont [CT] Stat Exams 02/13/21 18:28 Taken Ribs 2V w Chest Lt [CR] Stat Exams 02/13/21 18:27 Taken BASIC METABOLIC PANEL,BMP [CHEM] DAILY Lab 02/14/21 05:00 Ordered BASIC METABOLIC PANEL,BMP [CHEM] DAILY Lab 02/15/21 05:00 Ordered BASIC METABOLIC PANEL,BMP [CHEM] DAILY Lab 02/16/21 05:00 Ordered CBC WITH AUTO DIFF [HEME] DAILY Lab 02/14/21 05:00 Ordered CBC WITH AUTO DIFF [HEME] DAILY Lab 02/15/21 05:00 Ordered CBC WITH AUTO DIFF [HEME] DAILY Lab 02/16/21 05:00 Ordered CULTURE BLOOD [BC] Stat Lab 02/13/21 20:19 Received CULTURE WOUND [RM] Stat Lab 02/14/21 05:00 Ordered Acetaminophen [TylenoL] Med 02/13/21 21:19 Active 650 mg PO Q4H PRN Acetaminophen/HYDROcodone [[place] 325-5 MG] Med 02/13/21 21:19 Active 1 tab PO Q4H PRN Clindamycin Phosphate in D5W [Cleocin in D5W 300 MG/50 Med 02/13/21 22:00 Active ML] 300 mg Premix Bag 1 bag IV Q8H Morphine Med 02/13/21 21:19 Active 2 mg IVPUSH Q2H PRN Ondansetron [Zofran] Med 02/13/21 21:19 Active 4 mg IV Q6H PRN Antiembolic Hose [OM.PC] Per Unit Routine Oth 02/13/21 21:19 Ordered Blood Culture x2 Reflex Set [OM.PC] Stat Oth 02/13/21 19:52 Ordered Medication Orders Acetaminophen (Acetaminophen 325 Mg Tab) 650 mg PO Q4H PRN PRN Reason: Pain (Mild 1-3)/fever Hydrocodone Bitart/Acetaminophen (Acetaminophen/Hydrocodone 325-5 Mg Tab) 1 tab PO Q4H PRN PRN Reason: Pain (moderate 4-6) Apixaban (Apixaban 5 Mg Tab) 5 mg PO DAILY [facility] Last Admin: 02/14/21 07:45 Dose: 5 mg Documented by: TERRI Ascorbic Acid (Ascorbic Acid 500 Mg Tab) 500 mg PO DAILY [facility] Last Admin: 02/14/21 07:46 Dose: 500 mg Documented by: TERRI Atorvastatin Calcium (Atorvastatin 10 Mg Tab) 10 mg PO BEDTIME [facility] Last Admin: 02/13/21 23:02 Dose: 10 mg Documented by: MARIUSZ Cholecalciferol (Cholecalciferol (Vitamin D3) 25 Mcg Tab) 50 mcg PO DAILY [facility] Last Admin: 02/14/21 07:47 Dose: 50 mcg Documented by: TERRI Finasteride (Finasteride 5 Mg Tab) 5 mg PO BEDTIME [facility] Last Admin: 02/13/21 23:03 Dose: 5 mg Documented by: MARIUSZ Folic Acid (Folic Acid 1 Mg Tab) 1 mg PO DAILY [facility] Last Admin: 02/14/21 07:47 Dose: 1 mg Documented by: TERRI Clindamycin Phosphate 300 mg/ (Premix) 50 mls @ 100 mls/hr IV Q8H [facility] Last Admin: 02/14/21 06:29 Dose: 100 mls/hr Documented by: Infusion: 02/13/21 23:13 Dose: 100 mls/hr Documented by: Admin: 02/13/21 22:43 Dose: 100 mls/hr Documented by: MARIUSZ Fluconazole/Sodium Chloride (100 mg/ Premix) 50 mls @ 50 mls/hr IV Q24H [facility] Latanoprost (Latanoprost 0.005% Ophth Soln 2.5 Ml Bottle) 0 ml EYEBOTH BEDTIME [facility] Last Admin: 02/13/21 23:23 Dose: 1 drop Documented by: MARIUSZ Loratadine (Loratadine 10 Mg Tab) 10 mg PO BEDTIME [facility] Last Admin: 02/13/21 23:03 Dose: 10 mg Documented by: MARIUSZ Losartan Potassium (Losartan 100 Mg Tab) 50 mg PO QPM [facility] Last Admin: 02/13/21 23:05 Dose: 50 mg Documented by: MARIUSZ Magnesium Oxide (Magnesium Oxide 250 Mg Tab) 500 mg PO BID [facility] Last Admin: 02/14/21 07:46 Dose: 500 mg Documented by: Admin: 02/13/21 23:02 Dose: 500 mg Documented by: MARIUSZ Metoprolol Tartrate (Metoprolol Tartrate 50 Mg Tab) 50 mg PO BID [facility] Last Admin: 02/14/21 07:45 Dose: 50 mg Documented by: Admin: 02/13/21 23:06 Dose: 50 mg Documented by: MARIUSZ Morphine Sulfate (Morphine 2 Mg/Ml Syringe) 2 mg IVPUSH Q2H PRN PRN Reason: Pain (severe 7-10) Nystatin (Nystatin Crm 30 Gm Tube) 0 gm TOP TID [facility] Last Admin: 02/14/21 07:47 Dose: 1 applic Documented by: Admin: 02/13/21 23:02 Dose: 1 applic Documented by: MARIUSZ Ondansetron HCl (Ondansetron 4 Mg/2 Ml Sdv) 4 mg IV Q6H PRN PRN Reason: Nausea/Vomiting Pantoprazole Sodium (Pantoprazole 40 Mg Tab.Cr) 40 mg PO ACBREAKFAST [facility] Last Admin: 02/14/21 06:29 Dose: 40 mg Documented by: MARIUSZ Spironolactone (Spironolactone 25 Mg Tab) 25 mg PO DAILY [facility] Last Admin: 02/14/21 07:46 Dose: 25 mg Documented by: TERRI Vitamin B Complex (Vitamin B Complex Cap) 1 each PO DAILY [facility] Last Admin: 02/14/21 07:46 Dose: 1 each Documented by: TERRI Labs: Laboratory Tests 02/13/21 02/13/21 02/13/21 Range/Units 18:26 18:26 18:26 WBC 22.9 H* (5.0-10.0) 10^3/uL RBC 4.89 (4.50-6.00) 10^6/uL Hgb 16.5 (14.0-18.0) g/dL Hct 47.0 (40.0-54.0) % MCV 96.1 H (82.0-94.0) fL MCH 33.7 H (27.0-32.0) pg MCHC 35.1 (33.0-38.0) g/dL RDW Coeff of Jarvis 12.8 (11.0-15.0) % Plt Count 244 (150-400) 10^3/uL Add Manual Diff Yes Neutrophils % (Manual) 86 H (35-85) % Lymphocytes % (Manual) 8 L (21-55) % Monocytes % (Manual) 6 (2-12) % PT 11.9 (9.7-12.3) SEC INR 1.10 (0.92-1.18) Sodium 133 L (136-145) mEq/L Potassium 5.1 H (3.5-5.0) mEq/L Chloride 97 L (98-106) mEq/L Carbon Dioxide 27 (21-32) mmol/L BUN 37 H D (7-18) mg/dL Creatinine 1.3 (0.7-1.3) mg/dL Est Cr Clr Drug Dosing TNP Estimated GFR (MDRD) 52 L (>=60) mL/min Glucose 138 H D (75-99) mg/dL Lactic Acid (0.4-2.0) mmol/L Calcium 9.2 (8.4-10.1) mg/dL Total Bilirubin 1.0 (0.0-1.0) mg/dL AST 61 H (15-37) U/L ALT 114 H (12-78) U/L Alkaline Phosphatase 72 (46-116) U/L Lactate Dehydrogenase 253 H (100-190) U/L Creatine Kinase 34 L (35-232) U/L Troponin I < 0.017 (0.00-0.06) ng/mL C-Reactive Protein (0.2-0.8) mg/dL Total Protein 7.0 (6.4-8.2) g/dL Albumin 3.2 L (3.4-5.0) g/dL Urine Color (YELLOW) Urine Appearance (CLEAR) Urine pH (4.5-8.0) Ur Specific [place] (1.003-1.020) Urine Protein (NEGATIVE) mg/dL Urine Glucose (UA) (NEGATIVE) mg/dL Urine Ketones (NEGATIVE) mg/dL Urine Occult Blood (NEGATIVE) Urine Nitrite (NEGATIVE) Urine Bilirubin (NEGATIVE) Urine Urobilinogen (0.2-1.0) EU/dL Ur Leukocyte Esterase (NEGATIVE) Urine RBC (0-5) /HPF Urine WBC (0-5) /HPF SARS CoV-2 RNA Rapid DIAZ (NEGATIVE) 02/13/21 02/13/21 02/13/21 Range/Units 19:50 19:50 19:50 WBC (5.0-10.0) 10^3/uL RBC (4.50-6.00) 10^6/uL Hgb (14.0-18.0) g/dL Hct (40.0-54.0) % MCV (82.0-94.0) fL MCH (27.0-32.0) pg MCHC (33.0-38.0) g/dL RDW Coeff of Jarvis (11.0-15.0) % Plt Count (150-400) 10^3/uL Add Manual Diff Neutrophils % (Manual) (35-85) % Lymphocytes % (Manual) (21-55) % Monocytes % (Manual) (2-12) % PT (9.7-12.3) SEC INR (0.92-1.18) Sodium (136-145) mEq/L Potassium (3.5-5.0) mEq/L Chloride (98-106) mEq/L Carbon Dioxide (21-32) mmol/L BUN (7-18) mg/dL Creatinine (0.7-1.3) mg/dL Est Cr Clr Drug Dosing Estimated GFR (MDRD) (>=60) mL/min Glucose (75-99) mg/dL Lactic Acid 2.0 (0.4-2.0) mmol/L Calcium (8.4-10.1) mg/dL Total Bilirubin (0.0-1.0) mg/dL AST (15-37) U/L ALT (12-78) U/L Alkaline Phosphatase (46-116) U/L Lactate Dehydrogenase (100-190) U/L Creatine Kinase (35-232) U/L Troponin I (0.00-0.06) ng/mL C-Reactive Protein (0.2-0.8) mg/dL Total Protein (6.4-8.2) g/dL Albumin (3.4-5.0) g/dL Urine Color Yellow (YELLOW) Urine Appearance Clear (CLEAR) Urine pH 6.0 (4.5-8.0) Ur Specific [place] 1.025 H (1.003-1.020) Urine Protein Negative (NEGATIVE) mg/dL Urine Glucose (UA) Negative (NEGATIVE) mg/dL Urine Ketones Negative (NEGATIVE) mg/dL Urine Occult Blood Trace-intact H (NEGATIVE) Urine Nitrite Negative (NEGATIVE) Urine Bilirubin Negative (NEGATIVE) Urine Urobilinogen 0.2 (0.2-1.0) EU/dL Ur Leukocyte Esterase Negative (NEGATIVE) Urine RBC 0-5 (0-5) /HPF Urine WBC Not seen (0-5) /HPF SARS CoV-2 RNA Rapid DIAZ Negative (NEGATIVE) 02/13/21 Range/Units 19:51 WBC (5.0-10.0) 10^3/uL RBC (4.50-6.00) 10^6/uL Hgb (14.0-18.0) g/dL Hct (40.0-54.0) % MCV (82.0-94.0) fL MCH (27.0-32.0) pg MCHC (33.0-38.0) g/dL RDW Coeff of Jarvis (11.0-15.0) % Plt Count (150-400) 10^3/uL Add Manual Diff Neutrophils % (Manual) (35-85) % Lymphocytes % (Manual) (21-55) % Monocytes % (Manual) (2-12) % PT (9.7-12.3) SEC INR (0.92-1.18) Sodium (136-145) mEq/L Potassium (3.5-5.0) mEq/L Chloride (98-106) mEq/L Carbon Dioxide (21-32) mmol/L BUN (7-18) mg/dL Creatinine (0.7-1.3) mg/dL Est Cr Clr Drug Dosing Estimated GFR (MDRD) (>=60) mL/min Glucose (75-99) mg/dL Lactic Acid (0.4-2.0) mmol/L Calcium (8.4-10.1) mg/dL Total Bilirubin (0.0-1.0) mg/dL AST (15-37) U/L ALT (12-78) U/L Alkaline Phosphatase (46-116) U/L Lactate Dehydrogenase (100-190) U/L Creatine Kinase (35-232) U/L Troponin I (0.00-0.06) ng/mL C-Reactive Protein < 0.2 L (0.2-0.8) mg/dL Total Protein (6.4-8.2) g/dL Albumin (3.4-5.0) g/dL Urine Color (YELLOW) Urine Appearance (CLEAR) Urine pH (4.5-8.0) Ur Specific [place] (1.003-1.020) Urine Protein (NEGATIVE) mg/dL Urine Glucose (UA) (NEGATIVE) mg/dL Urine Ketones (NEGATIVE) mg/dL Urine Occult Blood (NEGATIVE) Urine Nitrite (NEGATIVE) Urine Bilirubin (NEGATIVE) Urine Urobilinogen (0.2-1.0) EU/dL Ur Leukocyte Esterase (NEGATIVE) Urine RBC (0-5) /HPF Urine WBC (0-5) /HPF SARS CoV-2 RNA Rapid DIAZ (NEGATIVE) Meds: Medications Generic Name Dose Route Start Last Admin Trade Name Freq PRN Reason Stop Dose Admin Acetaminophen 650 mg 02/13/21 21:19 Acetaminophen 325 Mg Tab PO Q4H PRN Pain (Mild 1-3)/fever Hydrocodone Bitart/Acetaminophen 1 tab 02/13/21 21:19 Acetaminophen/Hydrocodone 325-5 Mg Tab PO Q4H PRN Pain (moderate 4-6) Apixaban 5 mg 02/14/21 08:00 02/14/21 07:45 Apixaban 5 Mg Tab PO 5 mg DAILY [facility] Administration Ascorbic Acid 500 mg 02/14/21 08:00 02/14/21 07:46 Ascorbic Acid 500 Mg Tab PO 500 mg DAILY [facility] Administration Atorvastatin Calcium 10 mg 02/13/21 23:00 02/13/21 23:02 Atorvastatin 10 Mg Tab PO 10 mg BEDTIME [facility] Administration Cholecalciferol 50 mcg 02/14/21 08:00 02/14/21 07:47 Cholecalciferol (Vitamin D3) 25 Mcg Tab PO 50 mcg DAILY [facility] Administration Finasteride 5 mg 02/13/21 23:00 02/13/21 23:03 Finasteride 5 Mg Tab PO 5 mg BEDTIME [facility] Administration Folic Acid 1 mg 02/14/21 08:00 02/14/21 07:47 Folic Acid 1 Mg Tab PO 1 mg DAILY [facility] Administration Clindamycin Phosphate 300 mg/ 50 mls @ 100 mls/hr 02/13/21 22:00 02/14/21 06:29 Premix IV 100 mls/hr Q8H [facility] Administration Fluconazole/Sodium Chloride 50 mls @ 50 mls/hr 02/14/21 23:00 100 mg/ Premix IV Q24H [facility] Latanoprost 0 ml 02/13/21 23:00 02/13/21 23:23 Latanoprost 0.005% Ophth Soln 2.5 Ml Bottle EYEBOTH 1 drop BEDTIME [facility] Administration Loratadine 10 mg 02/13/21 23:00 02/13/21 23:03 Loratadine 10 Mg Tab PO 10 mg BEDTIME [facility] Administration Losartan Potassium 50 mg 02/13/21 23:00 02/13/21 23:05 Losartan 100 Mg Tab PO 50 mg QPM [facility] Administration Magnesium Oxide 500 mg 02/13/21 23:00 02/14/21 07:46 Magnesium Oxide 250 Mg Tab PO 500 mg BID [facility] Administration Metoprolol Tartrate 50 mg 02/13/21 23:00 02/14/21 07:45 Metoprolol Tartrate 50 Mg Tab PO 50 mg BID [facility] Administration Morphine Sulfate 2 mg 02/13/21 21:19 Morphine 2 Mg/Ml Syringe IVPUSH Q2H PRN Pain (severe 7-10) Nystatin 0 gm 02/13/21 23:00 02/14/21 07:47 Nystatin Crm 30 Gm Tube TOP 1 applic TID [facility] Administration Ondansetron HCl 4 mg 02/13/21 21:19 Ondansetron 4 Mg/2 Ml Sdv IV Q6H PRN Nausea/Vomiting Pantoprazole Sodium 40 mg 02/14/21 07:00 02/14/21 06:29 Pantoprazole 40 Mg Tab.Cr PO 40 mg ACBREAKFAST [facility] Administration Spironolactone 25 mg 02/14/21 08:00 02/14/21 07:46 Spironolactone 25 Mg Tab PO 25 mg DAILY [facility] Administration Vitamin B Complex 1 each 02/14/21 08:00 02/14/21 07:46 Vitamin B Complex Cap PO 1 each DAILY [facility] Administration Discontinued Medications Generic Name Dose Route Start Last Admin Trade Name Freq PRN Reason Stop Dose Admin Diphtheria/Tetanus/Acell Pertussis 0.5 ml 02/13/21 18:28 02/13/21 18:51 Diphtheria,Pertussis(Acell),Tetanus Vaccine 0.5 Ml Syringe IM 02/13/21 18:29 0.5 ml .ONCE ONE Administration Sodium Chloride 1,000 mls @ 100 mls/hr 02/13/21 21:19 02/13/21 22:39 Normal Saline IV 02/14/21 07:18 100 mls/hr ASDIRECTED [facility] Administration Fluconazole/Sodium Chloride 100 mls @ 100 mls/hr 02/13/21 21:19 02/13/21 23:29 200 mg/ Premix IV Not Given Q24H [facility] Fluconazole/Sodium Chloride 100 mls @ 100 mls/hr 02/13/21 22:38 02/13/21 23:22 200 mg/ Premix IV 02/13/21 23:36 100 mls/hr NOW STA Administration Morphine Sulfate 2 mg 02/13/21 20:22 02/13/21 22:37 Morphine 2 Mg/Ml Syringe IVPUSH 02/13/21 20:23 2 mg ONETIME ONE Administration Ondansetron HCl 4 mg 02/13/21 20:23 02/13/21 22:33 Ondansetron 4 Mg/2 Ml Sdv IVPUSH 02/13/21 20:24 4 mg NOW STA Administration - Radiology Interpretation Free Text/Narrative:: CXR with left ribs: No acute findings. no rib fractures seen, no hemothorax, no pneumothorax. No infiltrates or effusions. Head CT: No acute findings: Chronic frontal sinusitis. CT Results Date: 02/13/21 CT Results Time: 19:45 - Re-Assessments/Exams Free Text/Narrative Re-Assessment/Exam: 02/13/21 18:59 Patient fully alert and oriented. No shortness of breath, vital signs stable, no clinical evidence of internal bleeding. CXR negative. Patient neurologically intact. 15 minutes vitals discontinued. 02/13/21 19:53 Reviewed patient labs, wbc is elevated. Patient now reports he has had a cough for several weeks. Have added more labs. I have spoken to his daughter via phone about his labs and admission. 02/13/21 20:21 UA and lactic unremarkable, will admit. Will order IV fluids due to elevated BUN, leukocytosis. He does have a large groin rash that appears to be yeast. Patient reports he has been treating this for a very long time with creams and it keeps getting worse. The area is erythematous and warm to touch. This could also be infected with his leukocytosis. Will admit for cellulitis, leukocytosis, yeast groin infection, and renal insufficiency. GCS admit 15. Departure - Departure Time of Disposition: 20:22 Disposition: Admitted As Inpatient 66 Clinical Impression: Abrasion, Cellulitis of groin, Yeast infection Head injury Qualifiers: Encounter type: initial encounter Qualified Code(s): S09.90XA - Unspecified injury of head, initial encounter Fall Qualifiers: Encounter type: initial encounter Qualified Code(s): W19.XXXA - Unspecified fall, initial encounter Left elbow contusion Qualifiers: Encounter type: initial encounter Qualified Code(s): S50.02XA - Contusion of left elbow, initial encounter Chest wall muscle strain Qualifiers: Encounter type: initial encounter Qualified Code(s): S29.011A - Strain of muscle and tendon of front wall of thorax, initial encounter Leukocytosis Qualifiers: Leukocytosis type: lymphocytosis Qualified Code(s): D72.820 - Lymphocytosis (symptomatic) - Discharge Information *PRESCRIPTION DRUG MONITORING PROGRAM REVIEWED*: Not Applicable *COPY OF PRESCRIPTION DRUG MONITORING REPORT IN PATIENT ABIEL: Not Applicable Sepsis Event Note (ED) - Evaluation Sepsis Screening Result: No Definite Risk - Focused Exam Vital Signs: Vital Signs Temp Pulse Resp BP Pulse Ox 02/13/21 20:02 97.9 F 90 16 157/81 H 100 - My Orders Last 24 Hours: My Active Orders 02/13/21 Breakfast Consistent Carbohydrate Diet [DIET] 02/13/21 18:27 Ribs 2V w Chest Lt [CR] Stat 02/13/21 18:28 Head wo Cont [CT] Stat 02/13/21 18:34 Elbow Min 3V Lt [CR] Stat 02/13/21 19:52 Blood Culture x2 Reflex Set [OM.PC] Stat 02/13/21 20:19 CULTURE BLOOD [BC] Stat 02/13/21 21:19 Acetaminophen [TylenoL] 650 mg PO Q4H PRN Acetaminophen/HYDROcodone [[place] 325-5 MG] 1 tab PO Q4H PRN Morphine 2 mg IVPUSH Q2H PRN Ondansetron [Zofran] 4 mg IV Q6H PRN 02/13/21 21:19 Patient Status [ADT] Routine Antiembolic Devices [RC] 1000,2200 Notify Provider Vital Signs [RC] ASDIRECTED Oxygen Therapy [RC] .PRN Up With Assistance [RC] .PRN Up to Chair [RC] .PRN Vital Signs [RC] 0000,0400,0800,1200,1600,2000 Antiembolic Hose [OM.PC] Per Unit Routine 02/13/21 22:00 Clindamycin Phosphate in D5W [Cleocin in D5W 300 MG/50 ML] 300 mg Premix Bag 1 bag IV Q8H 02/14/21 05:00 BASIC METABOLIC PANEL,BMP [CHEM] DAILY CBC WITH AUTO DIFF [HEME] DAILY CULTURE WOUND [RM] Stat 02/15/21 05:00 BASIC METABOLIC PANEL,BMP [CHEM] DAILY CBC WITH AUTO DIFF [HEME] DAILY 02/16/21 05:00 BASIC METABOLIC PANEL,BMP [CHEM] DAILY CBC WITH AUTO DIFF [HEME] DAILY - Assessment/Plan Admission H&P: Please use this note as an admission H&P Last 24 Hours: My Active Orders 02/13/21 Breakfast Consistent Carbohydrate Diet [DIET] 02/13/21 18:27 Ribs 2V w Chest Lt [CR] Stat 02/13/21 18:28 Head wo Cont [CT] Stat 02/13/21 18:34 Elbow Min 3V Lt [CR] Stat 02/13/21 19:52 Blood Culture x2 Reflex Set [OM.PC] Stat 02/13/21 20:19 CULTURE BLOOD [BC] Stat 02/13/21 21:19 Acetaminophen [TylenoL] 650 mg PO Q4H PRN Acetaminophen/HYDROcodone [[place] 325-5 MG] 1 tab PO Q4H PRN Morphine 2 mg IVPUSH Q2H PRN Ondansetron [Zofran] 4 mg IV Q6H PRN 02/13/21 21:19 Patient Status [ADT] Routine Antiembolic Devices [RC] 1000,2200 Notify Provider Vital Signs [RC] ASDIRECTED Oxygen Therapy [RC] .PRN Up With Assistance [RC] .PRN Up to Chair [RC] .PRN Vital Signs [RC] 0000,0400,0800,1200,1600,2000 Antiembolic Hose [OM.PC] Per Unit Routine 02/13/21 22:00 Clindamycin Phosphate in D5W [Cleocin in D5W 300 MG/50 ML] 300 mg Premix Bag 1 bag IV Q8H 02/14/21 05:00 BASIC METABOLIC PANEL,BMP [CHEM] DAILY CBC WITH AUTO DIFF [HEME] DAILY CULTURE WOUND [RM] Stat 02/15/21 05:00 BASIC METABOLIC PANEL,BMP [CHEM] DAILY CBC WITH AUTO DIFF [HEME] DAILY 02/16/21 05:00 BASIC METABOLIC PANEL,BMP [CHEM] DAILY CBC WITH AUTO DIFF [HEME] DAILY Plan: PLEASE SEE RN NOTE FOR PFSH
[2021-02-13 19:27] LABS: CHLORIDE,CL 97 mEq/L (98-106); SODIUM,NA 133 mEq/L (136-145)
[2021-02-13] MEDS ORDERED: Morphine 2 MG/ML SYRINGE IVPUSH ONE (20:22)
[2021-02-13] MEDS ORDERED: Ondansetron 4 MG/2 ML SDV IVPUSH STA (20:23)
[2021-02-13] MEDS ORDERED: Morphine 2 MG/ML SYRINGE IVPUSH PRN (21:19)
[2021-02-13] MEDS ORDERED: Fluconazole/Normal Saline 200 MG in Premix Bag 1 BAG IV SCH (21:19)
[2021-02-13] MEDS ORDERED: Ondansetron 4 MG/2 ML SDV IV PRN (21:19)
[2021-02-13] MEDS ORDERED: Sodium Chloride 0.9% 1,000 ML IV SCH (21:19)
[2021-02-13] MEDS ORDERED: Fluconazole/Normal Saline 200 MG in Premix Bag 1 BAG IV STA (22:38)
[2021-02-13] MEDS: Clindamycin Phosphate in D5W 300 MG in Premix Bag 1 BAG IV SCH ×2 (22:43)
[2021-02-13] MEDS: Nystatin Crm 30 GM Tube TOP SCH (23:02)
[2021-02-13] MEDS: atorvaSTATin 10 MG Tab PO SCH (23:02)
[2021-02-13] MEDS: Loratadine 10 MG Tab PO SCH (23:03)
[2021-02-13] MEDS: Finasteride 5 MG Tab PO SCH (23:03)
[2021-02-13] MEDS: Losartan 100 MG Tab PO SCH (23:05)
[2021-02-13] MEDS: Metoprolol Tartrate 50 MG Tab PO SCH (23:06)
[2021-02-13] MEDS: Latanoprost 0.005% Ophth Soln 2.5 ML Bottle EYEBOTH SCH (23:23)
[2021-02-14] MEDS: Pantoprazole 40 MG Tab.CR PO SCH (06:29)
[2021-02-14] MEDS: Clindamycin Phosphate in D5W 300 MG in Premix Bag 1 BAG IV SCH ×6 (06:29→22:52)
[2021-02-14] MEDS: Apixaban 5 MG Tab PO SCH (07:45)
[2021-02-14] MEDS: Metoprolol Tartrate 50 MG Tab PO SCH ×2 (07:45→20:18)
[2021-02-14] MEDS: Vitamin B Complex Cap PO SCH (07:46)
[2021-02-14] MEDS: Ascorbic Acid 500 MG Tab PO SCH (07:46)
[2021-02-14] MEDS: Spironolactone 25 MG Tab PO SCH (07:46)
[2021-02-14] MEDS: Cholecalciferol (Vitamin D3) 25 MCG Tab PO SCH (07:47)
[2021-02-14] MEDS: Folic Acid 1 MG Tab PO SCH (07:47)
[2021-02-14] MEDS: Nystatin Crm 30 GM Tube TOP SCH ×3 (07:47→20:18)
[2021-02-14 08:03] LABS: CHLORIDE,CL 98 mEq/L (98-106); SODIUM,NA 132 mEq/L (136-145)
[2021-02-14] MEDS ORDERED: Sodium Chloride 0.9% 1,000 ML IV SCH (09:15)
--- NOTE | 2021-02-14 11:05 | PCM.PN ---
- General Info Date of Service: 02/14/21 Functional Status: Reports: Pain Controlled (much improved 10/19 today.), Tolerating Diet, Ambulating, Urinating - Review of Systems General: Reports: No Symptoms HEENT: Reports: No Symptoms Pulmonary: Reports: No Symptoms. Denies: Shortness of Breath Cardiovascular: Denies: Chest Pain, Palpitations, Dyspnea on Exertion Gastrointestinal: Reports: No Symptoms Genitourinary: Reports: No Symptoms Musculoskeletal: Reports: Other (chest pain with movement) Skin: Reports: Rash (redness scrotum) Neurological: Reports: No Symptoms Psychiatric: Reports: No Symptoms - Patient Data Vitals - Most Recent: Last Vital Signs Temp 97.6 F 02/14/21 07:33 Pulse 63 02/14/21 07:45 Resp 16 02/14/21 07:33 BP 151/72 H 02/14/21 07:45 Pulse Ox 97 02/14/21 07:33 Weight - Most Recent: 150 lb I&O - Last 24 Hours: Intake & Output 02/13/21 02/14/21 02/14/21 22:59 06:59 14:59 Intake Total 170 Output Total 475 Balance -305 Lab Results Last 24 Hours: Laboratory Results - last 24 hr 02/13/21 02/13/21 02/13/21 Range/Units 18:26 18:26 18:26 WBC 22.9 H* (5.0-10.0) 10^3/uL RBC 4.89 (4.50-6.00) 10^6/uL Hgb 16.5 (14.0-18.0) g/dL Hct 47.0 (40.0-54.0) % MCV 96.1 H (82.0-94.0) fL MCH 33.7 H (27.0-32.0) pg MCHC 35.1 (33.0-38.0) g/dL RDW Coeff of Jarvis 12.8 (11.0-15.0) % Plt Count 244 (150-400) 10^3/uL Neut % (Auto) (35-85) % Lymph % (Auto) (10-55) % Mercer % (Auto) (0-16) % Eos % (Auto) (0-5) % Baso % (Auto) (0-3) % Neut # (Auto) (1.80-7.00) 10^3/uL Lymph # (Auto) (1.00-4.80) 10^3/uL Mercer # (Auto) (0.00-0.80) 10^3/uL Eos # (Auto) (0.00-0.45) 10^3/uL Baso # (Auto) 10^3/uL Add Manual Diff Yes Neutrophils % (Manual) 86 H (35-85) % Lymphocytes % (Manual) 8 L (21-55) % Monocytes % (Manual) 6 (2-12) % PT 11.9 (9.7-12.3) SEC INR 1.10 (0.92-1.18) Sodium 133 L (136-145) mEq/L Potassium 5.1 H (3.5-5.0) mEq/L Chloride 97 L (98-106) mEq/L Carbon Dioxide 27 (21-32) mmol/L BUN 37 H D (7-18) mg/dL Creatinine 1.3 (0.7-1.3) mg/dL Est Cr Clr Drug Dosing TNP Estimated GFR (MDRD) 52 L (>=60) mL/min Glucose 138 H D (75-99) mg/dL Lactic Acid (0.4-2.0) mmol/L Calcium 9.2 (8.4-10.1) mg/dL Total Bilirubin 1.0 (0.0-1.0) mg/dL AST 61 H (15-37) U/L ALT 114 H (12-78) U/L Alkaline Phosphatase 72 (46-116) U/L Lactate Dehydrogenase 253 H (100-190) U/L Creatine Kinase 34 L (35-232) U/L Troponin I < 0.017 (0.00-0.06) ng/mL C-Reactive Protein (0.2-0.8) mg/dL Total Protein 7.0 (6.4-8.2) g/dL Albumin 3.2 L (3.4-5.0) g/dL Urine Color (YELLOW) Urine Appearance (CLEAR) Urine pH (4.5-8.0) Ur Specific [place] (1.003-1.020) Urine Protein (NEGATIVE) mg/dL Urine Glucose (UA) (NEGATIVE) mg/dL Urine Ketones (NEGATIVE) mg/dL Urine Occult Blood (NEGATIVE) Urine Nitrite (NEGATIVE) Urine Bilirubin (NEGATIVE) Urine Urobilinogen (0.2-1.0) EU/dL Ur Leukocyte Esterase (NEGATIVE) Urine RBC (0-5) /HPF Urine WBC (0-5) /HPF SARS CoV-2 RNA Rapid DIAZ (NEGATIVE) 02/13/21 02/13/21 02/13/21 Range/Units 19:50 19:50 19:50 WBC (5.0-10.0) 10^3/uL RBC (4.50-6.00) 10^6/uL Hgb (14.0-18.0) g/dL Hct (40.0-54.0) % MCV (82.0-94.0) fL MCH (27.0-32.0) pg MCHC (33.0-38.0) g/dL RDW Coeff of Jarvis (11.0-15.0) % Plt Count (150-400) 10^3/uL Neut % (Auto) (35-85) % Lymph % (Auto) (10-55) % Mercer % (Auto) (0-16) % Eos % (Auto) (0-5) % Baso % (Auto) (0-3) % Neut # (Auto) (1.80-7.00) 10^3/uL Lymph # (Auto) (1.00-4.80) 10^3/uL Mercer # (Auto) (0.00-0.80) 10^3/uL Eos # (Auto) (0.00-0.45) 10^3/uL Baso # (Auto) 10^3/uL Add Manual Diff Neutrophils % (Manual) (35-85) % Lymphocytes % (Manual) (21-55) % Monocytes % (Manual) (2-12) % PT (9.7-12.3) SEC INR (0.92-1.18) Sodium (136-145) mEq/L Potassium (3.5-5.0) mEq/L Chloride (98-106) mEq/L Carbon Dioxide (21-32) mmol/L BUN (7-18) mg/dL Creatinine (0.7-1.3) mg/dL Est Cr Clr Drug Dosing Estimated GFR (MDRD) (>=60) mL/min Glucose (75-99) mg/dL Lactic Acid 2.0 (0.4-2.0) mmol/L Calcium (8.4-10.1) mg/dL Total Bilirubin (0.0-1.0) mg/dL AST (15-37) U/L ALT (12-78) U/L Alkaline Phosphatase (46-116) U/L Lactate Dehydrogenase (100-190) U/L Creatine Kinase (35-232) U/L Troponin I (0.00-0.06) ng/mL C-Reactive Protein (0.2-0.8) mg/dL Total Protein (6.4-8.2) g/dL Albumin (3.4-5.0) g/dL Urine Color Yellow (YELLOW) Urine Appearance Clear (CLEAR) Urine pH 6.0 (4.5-8.0) Ur Specific [place] 1.025 H (1.003-1.020) Urine Protein Negative (NEGATIVE) mg/dL Urine Glucose (UA) Negative (NEGATIVE) mg/dL Urine Ketones Negative (NEGATIVE) mg/dL Urine Occult Blood Trace-intact H (NEGATIVE) Urine Nitrite Negative (NEGATIVE) Urine Bilirubin Negative (NEGATIVE) Urine Urobilinogen 0.2 (0.2-1.0) EU/dL Ur Leukocyte Esterase Negative (NEGATIVE) Urine RBC 0-5 (0-5) /HPF Urine WBC Not seen (0-5) /HPF SARS CoV-2 RNA Rapid DIAZ Negative (NEGATIVE) 02/13/21 02/14/21 02/14/21 Range/Units 19:51 05:00 05:00 WBC 16.8 H (5.0-10.0) 10^3/uL RBC 4.48 L (4.50-6.00) 10^6/uL Hgb 14.9 (14.0-18.0) g/dL Hct 44.1 (40.0-54.0) % MCV 98.4 H (82.0-94.0) fL MCH 33.3 H (27.0-32.0) pg MCHC 33.8 (33.0-38.0) g/dL RDW Coeff of Jarvis 12.8 (11.0-15.0) % Plt Count 192 (150-400) 10^3/uL Neut % (Auto) 86.7 H (35-85) % Lymph % (Auto) 4.5 L (10-55) % Mercer % (Auto) 8.6 (0-16) % Eos % (Auto) 0.1 (0-5) % Baso % (Auto) 0.1 (0-3) % Neut # (Auto) 14.54 H (1.80-7.00) 10^3/uL Lymph # (Auto) 0.76 L (1.00-4.80) 10^3/uL [place] # (Auto) 1.44 H (0.00-0.80) 10^3/uL Eos # (Auto) 0.02 (0.00-0.45) 10^3/uL Baso # (Auto) 0.02 10^3/uL Add Manual Diff Neutrophils % (Manual) (35-85) % Lymphocytes % (Manual) (21-55) % Monocytes % (Manual) (2-12) % PT (9.7-12.3) SEC INR (0.92-1.18) Sodium 132 L (136-145) mEq/L Potassium 5.4 H (3.5-5.0) mEq/L Chloride 98 (98-106) mEq/L Carbon Dioxide 25 (21-32) mmol/L BUN 31 H (7-18) mg/dL Creatinine 1.1 (0.7-1.3) mg/dL Est Cr Clr Drug Dosing 44.31 Estimated GFR (MDRD) > 60 (>=60) mL/min Glucose 205 H D (75-99) mg/dL Lactic Acid (0.4-2.0) mmol/L Calcium 8.4 (8.4-10.1) mg/dL Total Bilirubin (0.0-1.0) mg/dL AST (15-37) U/L ALT (12-78) U/L Alkaline Phosphatase (46-116) U/L Lactate Dehydrogenase (100-190) U/L Creatine Kinase (35-232) U/L Troponin I (0.00-0.06) ng/mL C-Reactive Protein < 0.2 L (0.2-0.8) mg/dL Total Protein (6.4-8.2) g/dL Albumin (3.4-5.0) g/dL Urine Color (YELLOW) Urine Appearance (CLEAR) Urine pH (4.5-8.0) Ur Specific [place] (1.003-1.020) Urine Protein (NEGATIVE) mg/dL Urine Glucose (UA) (NEGATIVE) mg/dL Urine Ketones (NEGATIVE) mg/dL Urine Occult Blood (NEGATIVE) Urine Nitrite (NEGATIVE) Urine Bilirubin (NEGATIVE) Urine Urobilinogen (0.2-1.0) EU/dL Ur Leukocyte Esterase (NEGATIVE) Urine RBC (0-5) /HPF Urine WBC (0-5) /HPF SARS CoV-2 RNA Rapid DIAZ (NEGATIVE) Med Orders - Current: Current Medications Acetaminophen (Acetaminophen 325 Mg Tab) 650 mg PO Q4H PRN PRN Reason: Pain (Mild 1-3)/fever Hydrocodone Bitart/Acetaminophen (Acetaminophen/Hydrocodone 325-5 Mg Tab) 1 tab PO Q4H PRN PRN Reason: Pain (moderate 4-6) Apixaban (Apixaban 5 Mg Tab) 5 mg PO DAILY ON LICENSE OF [facility] Last Admin: 02/14/21 07:45 Dose: 5 mg Documented by: Ascorbic Acid (Ascorbic Acid 500 Mg Tab) 500 mg PO DAILY ON LICENSE OF [facility] Last Admin: 02/14/21 07:46 Dose: 500 mg Documented by: Atorvastatin Calcium (Atorvastatin 10 Mg Tab) 10 mg PO BEDTIME ON LICENSE OF [facility] Last Admin: 02/13/21 23:02 Dose: 10 mg Documented by: Cholecalciferol (Cholecalciferol (Vitamin D3) 25 Mcg Tab) 50 mcg PO DAILY ON LICENSE OF [facility] Last Admin: 02/14/21 07:47 Dose: 50 mcg Documented by: Finasteride (Finasteride 5 Mg Tab) 5 mg PO BEDTIME ON LICENSE OF [facility] Last Admin: 02/13/21 23:03 Dose: 5 mg Documented by: Folic Acid (Folic Acid 1 Mg Tab) 1 mg PO DAILY ON LICENSE OF [facility] Last Admin: 02/14/21 07:47 Dose: 1 mg Documented by: Clindamycin Phosphate 300 mg/ (Premix) 50 mls @ 100 mls/hr IV Q8H ON LICENSE OF [facility] Last Admin: 02/14/21 06:29 Dose: 100 mls/hr Documented by: Fluconazole/Sodium Chloride (100 mg/ Premix) 50 mls @ 50 mls/hr IV Q24H ON LICENSE OF [facility] Sodium Chloride (Normal Saline) 1,000 mls @ 75 mls/hr IV ASDIRECTED ON LICENSE OF [facility] Stop: 02/14/21 22:34 Latanoprost (Latanoprost 0.005% Ophth Soln 2.5 Ml Bottle) 0 ml EYEBOTH BEDTIME ON LICENSE OF [facility] Last Admin: 02/13/21 23:23 Dose: 1 drop Documented by: Loratadine (Loratadine 10 Mg Tab) 10 mg PO BEDTIME ON LICENSE OF [facility] Last Admin: 02/13/21 23:03 Dose: 10 mg Documented by: Losartan Potassium (Losartan 100 Mg Tab) 50 mg PO QPM ON LICENSE OF [facility] Last Admin: 02/13/21 23:05 Dose: 50 mg Documented by: Magnesium Oxide (Magnesium Oxide 250 Mg Tab) 500 mg PO BID ON LICENSE OF [facility] Last Admin: 02/14/21 07:46 Dose: 500 mg Documented by: Metoprolol Tartrate (Metoprolol Tartrate 50 Mg Tab) 50 mg PO BID ON LICENSE OF [facility] Last Admin: 02/14/21 07:45 Dose: 50 mg Documented by: Morphine Sulfate (Morphine 2 Mg/Ml Syringe) 2 mg IVPUSH Q2H PRN PRN Reason: Pain (severe 7-10) Nystatin (Nystatin Crm 30 Gm Tube) 0 gm TOP TID ON LICENSE OF [facility] Last Admin: 02/14/21 07:47 Dose: 1 applic Documented by: Ondansetron HCl (Ondansetron 4 Mg/2 Ml Sdv) 4 mg IV Q6H PRN PRN Reason: Nausea/Vomiting Pantoprazole Sodium (Pantoprazole 40 Mg Tab.Cr) 40 mg PO ACBREAKFAST ON LICENSE OF [facility] Last Admin: 02/14/21 06:29 Dose: 40 mg Documented by: Spironolactone (Spironolactone 25 Mg Tab) 25 mg PO DAILY ON LICENSE OF [facility] Last Admin: 02/14/21 07:46 Dose: 25 mg Documented by: Vitamin B Complex (Vitamin B Complex Cap) 1 each PO DAILY ON LICENSE OF [facility] Last Admin: 02/14/21 07:46 Dose: 1 each Documented by: Discontinued Medications Diphtheria/Tetanus/Acell Pertussis (Diphtheria,Pertussis(Acell),Tetanus Vaccine 0.5 Ml Syringe) 0.5 ml IM .ONCE ONE Stop: 02/13/21 18:29 Last Admin: 02/13/21 18:51 Dose: 0.5 ml Documented by: Sodium Chloride (Normal Saline) 1,000 mls @ 100 mls/hr IV ASDIRECTED ON LICENSE OF [facility] Stop: 02/14/21 07:18 Last Admin: 02/13/21 22:39 Dose: 100 mls/hr Documented by: Fluconazole/Sodium Chloride (200 mg/ Premix) 100 mls @ 100 mls/hr IV Q24H [facility] Last Admin: 02/13/21 23:29 Dose: Not Given Documented by: Fluconazole/Sodium Chloride (200 mg/ Premix) 100 mls @ 100 mls/hr IV NOW STA Stop: 02/13/21 23:36 Last Admin: 02/13/21 23:22 Dose: 100 mls/hr Documented by: Morphine Sulfate (Morphine 2 Mg/Ml Syringe) 2 mg IVPUSH ONETIME ONE Stop: 02/13/21 20:23 Last Admin: 02/13/21 22:37 Dose: 2 mg Documented by: Ondansetron HCl (Ondansetron 4 Mg/2 Ml Sdv) 4 mg IVPUSH NOW STA Stop: 02/13/21 20:24 Last Admin: 02/13/21 22:33 Dose: 4 mg Documented by: - Exam General: Alert, Oriented, Cooperative Neck: Supple, Trachea Midline Lungs: Clear to Auscultation, Normal Respiratory Effort Cardiovascular: Regular Rate, Regular Rhythm GI/Abdominal Exam: Normal Bowel Sounds, Soft, Non-Tender, No Organomegaly, Pel vis Stable Back Exam: Normal Inspection, Full Range of Motion Extremities: Normal Inspection, Normal Range of Motion, Non-Tender (left elbow nontender today), No Pedal Edema, Normal Capillary Refill Peripheral Pulses: 2+: Radial (L), Radial (R), Posterior Tibial (L), Posterior Tibial (R) Skin: Rash (today the erythema to the thighs and inner groin folds has improved quite a bit. The scrotum still has ertyhema. ), Ecchymosis (bilateral arms chronic.), Other (left elbow abrasion) Psy/Mental Status: Alert, Normal Affect, Normal Mood - Patient Data Lab Results Last 24 hrs: Laboratory Results - last 24 hr 02/13/21 02/13/21 02/13/21 Range/Units 18:26 18:26 18:26 WBC 22.9 H* (5.0-10.0) 10^3/uL RBC 4.89 (4.50-6.00) 10^6/uL Hgb 16.5 (14.0-18.0) g/dL Hct 47.0 (40.0-54.0) % MCV 96.1 H (82.0-94.0) fL MCH 33.7 H (27.0-32.0) pg MCHC 35.1 (33.0-38.0) g/dL RDW Coeff of Jarvis 12.8 (11.0-15.0) % Plt Count 244 (150-400) 10^3/uL Neut % (Auto) (35-85) % Lymph % (Auto) (10-55) % [place] % (Auto) (0-16) % Eos % (Auto) (0-5) % Baso % (Auto) (0-3) % Neut # (Auto) (1.80-7.00) 10^3/uL Lymph # (Auto) (1.00-4.80) 10^3/uL [place] # (Auto) (0.00-0.80) 10^3/uL Eos # (Auto) (0.00-0.45) 10^3/uL Baso # (Auto) 10^3/uL Add Manual Diff Yes Neutrophils % (Manual) 86 H (35-85) % Lymphocytes % (Manual) 8 L (21-55) % Monocytes % (Manual) 6 (2-12) % PT 11.9 (9.7-12.3) SEC INR 1.10 (0.92-1.18) Sodium 133 L (136-145) mEq/L Potassium 5.1 H (3.5-5.0) mEq/L Chloride 97 L (98-106) mEq/L Carbon Dioxide 27 (21-32) mmol/L BUN 37 H D (7-18) mg/dL Creatinine 1.3 (0.7-1.3) mg/dL Est Cr Clr Drug Dosing TNP Estimated GFR (MDRD) 52 L (>=60) mL/min Glucose 138 H D (75-99) mg/dL Lactic Acid (0.4-2.0) mmol/L Calcium 9.2 (8.4-10.1) mg/dL Total Bilirubin 1.0 (0.0-1.0) mg/dL AST 61 H (15-37) U/L ALT 114 H (12-78) U/L Alkaline Phosphatase 72 (46-116) U/L Lactate Dehydrogenase 253 H (100-190) U/L Creatine Kinase 34 L (35-232) U/L Troponin I < 0.017 (0.00-0.06) ng/mL C-Reactive Protein (0.2-0.8) mg/dL Total Protein 7.0 (6.4-8.2) g/dL Albumin 3.2 L (3.4-5.0) g/dL Urine Color (YELLOW) Urine Appearance (CLEAR) Urine pH (4.5-8.0) Ur Specific [place] (1.003-1.020) Urine Protein (NEGATIVE) mg/dL Urine Glucose (UA) (NEGATIVE) mg/dL Urine Ketones (NEGATIVE) mg/dL Urine Occult Blood (NEGATIVE) Urine Nitrite (NEGATIVE) Urine Bilirubin (NEGATIVE) Urine Urobilinogen (0.2-1.0) EU/dL Ur Leukocyte Esterase (NEGATIVE) Urine RBC (0-5) /HPF Urine WBC (0-5) /HPF SARS CoV-2 RNA Rapid DIAZ (NEGATIVE) 02/13/21 02/13/21 02/13/21 Range/Units 19:50 19:50 19:50 WBC (5.0-10.0) 10^3/uL RBC (4.50-6.00) 10^6/uL Hgb (14.0-18.0) g/dL Hct (40.0-54.0) % MCV (82.0-94.0) fL MCH (27.0-32.0) pg MCHC (33.0-38.0) g/dL RDW Coeff of Jarvis (11.0-15.0) % Plt Count (150-400) 10^3/uL Neut % (Auto) (35-85) % Lymph % (Auto) (10-55) % [place] % (Auto) (0-16) % Eos % (Auto) (0-5) % Baso % (Auto) (0-3) % Neut # (Auto) (1.80-7.00) 10^3/uL Lymph # (Auto) (1.00-4.80) 10^3/uL [place] # (Auto) (0.00-0.80) 10^3/uL Eos # (Auto) (0.00-0.45) 10^3/uL Baso # (Auto) 10^3/uL Add Manual Diff Neutrophils % (Manual) (35-85) % Lymphocytes % (Manual) (21-55) % Monocytes % (Manual) (2-12) % PT (9.7-12.3) SEC INR (0.92-1.18) Sodium (136-145) mEq/L Potassium (3.5-5.0) mEq/L Chloride (98-106) mEq/L Carbon Dioxide (21-32) mmol/L BUN (7-18) mg/dL Creatinine (0.7-1.3) mg/dL Est Cr Clr Drug Dosing Estimated GFR (MDRD) (>=60) mL/min Glucose (75-99) mg/dL Lactic Acid 2.0 (0.4-2.0) mmol/L Calcium (8.4-10.1) mg/dL Total Bilirubin (0.0-1.0) mg/dL AST (15-37) U/L ALT (12-78) U/L Alkaline Phosphatase (46-116) U/L Lactate Dehydrogenase (100-190) U/L Creatine Kinase (35-232) U/L Troponin I (0.00-0.06) ng/mL C-Reactive Protein (0.2-0.8) mg/dL Total Protein (6.4-8.2) g/dL Albumin (3.4-5.0) g/dL Urine Color Yellow (YELLOW) Urine Appearance Clear (CLEAR) Urine pH 6.0 (4.5-8.0) Ur Specific [place] 1.025 H (1.003-1.020) Urine Protein Negative (NEGATIVE) mg/dL Urine Glucose (UA) Negative (NEGATIVE) mg/dL Urine Ketones Negative (NEGATIVE) mg/dL Urine Occult Blood Trace-intact H (NEGATIVE) Urine Nitrite Negative (NEGATIVE) Urine Bilirubin Negative (NEGATIVE) Urine Urobilinogen 0.2 (0.2-1.0) EU/dL Ur Leukocyte Esterase Negative (NEGATIVE) Urine RBC 0-5 (0-5) /HPF Urine WBC Not seen (0-5) /HPF SARS CoV-2 RNA Rapid DIAZ Negative (NEGATIVE) 02/13/21 02/14/21 02/14/21 Range/Units 19:51 05:00 05:00 WBC 16.8 H (5.0-10.0) 10^3/uL RBC 4.48 L (4.50-6.00) 10^6/uL Hgb 14.9 (14.0-18.0) g/dL Hct 44.1 (40.0-54.0) % MCV 98.4 H (82.0-94.0) fL MCH 33.3 H (27.0-32.0) pg MCHC 33.8 (33.0-38.0) g/dL RDW Coeff of Jarvis 12.8 (11.0-15.0) % Plt Count 192 (150-400) 10^3/uL Neut % (Auto) 86.7 H (35-85) % Lymph % (Auto) 4.5 L (10-55) % Mercer % (Auto) 8.6 (0-16) % Eos % (Auto) 0.1 (0-5) % Baso % (Auto) 0.1 (0-3) % Neut # (Auto) 14.54 H (1.80-7.00) 10^3/uL Lymph # (Auto) 0.76 L (1.00-4.80) 10^3/uL [place]cer # (Auto) 1.44 H (0.00-0.80) 10^3/uL Eos # (Auto) 0.02 (0.00-0.45) 10^3/uL Baso # (Auto) 0.02 10^3/uL Add Manual Diff Neutrophils % (Manual) (35-85) % Lymphocytes % (Manual) (21-55) % Monocytes % (Manual) (2-12) % PT (9.7-12.3) SEC INR (0.92-1.18) Sodium 132 L (136-145) mEq/L Potassium 5.4 H (3.5-5.0) mEq/L Chloride 98 (98-106) mEq/L Carbon Dioxide 25 (21-32) mmol/L BUN 31 H (7-18) mg/dL Creatinine 1.1 (0.7-1.3) mg/dL Est Cr Clr Drug Dosing 44.31 Estimated GFR (MDRD) > 60 (>=60) mL/min Glucose 205 H D (75-99) mg/dL Lactic Acid (0.4-2.0) mmol/L Calcium 8.4 (8.4-10.1) mg/dL Total Bilirubin (0.0-1.0) mg/dL AST (15-37) U/L ALT (12-78) U/L Alkaline Phosphatase (46-116) U/L Lactate Dehydrogenase (100-190) U/L Creatine Kinase (35-232) U/L Troponin I (0.00-0.06) ng/mL C-Reactive Protein < 0.2 L (0.2-0.8) mg/dL Total Protein (6.4-8.2) g/dL Albumin (3.4-5.0) g/dL Urine Color (YELLOW) Urine Appearance (CLEAR) Urine pH (4.5-8.0) Ur Specific [place] (1.003-1.020) Urine Protein (NEGATIVE) mg/dL Urine Glucose (UA) (NEGATIVE) mg/dL Urine Ketones (NEGATIVE) mg/dL Urine Occult Blood (NEGATIVE) Urine Nitrite (NEGATIVE) Urine Bilirubin (NEGATIVE) Urine Urobilinogen (0.2-1.0) EU/dL Ur Leukocyte Esterase (NEGATIVE) Urine RBC (0-5) /HPF Urine WBC (0-5) /HPF SARS CoV-2 RNA Rapid DIAZ (NEGATIVE) Result Diagrams: 02/14/21 05:00 02/14/21 05:00 Sepsis Event Note - Evaluation Sepsis Screening Result: No Definite Risk - Focused Exam Vital Signs: Vital Signs Temp Pulse Pulse Resp BP BP Pulse Ox 02/14/21 07:45 63 151/72 H 02/14/21 07:33 97.6 F 68 16 151/72 H 97 02/14/21 04:00 96.7 F L 63 20 147/80 H 98 02/13/21 23:06 86 128/65 02/13/21 23:05 128/65 02/13/21 23:04 97.4 F 86 18 128/65 98 - Problem List Review Problem List Initiated/Reviewed/Updated: Yes - My Orders Last 24 Hours: My Active Orders 02/13/21 18:27 Ribs 2V w Chest Lt [CR] Stat 02/13/21 18:28 Head wo Cont [CT] Stat 02/13/21 18:34 Elbow Min 3V Lt [CR] Stat 02/13/21 19:52 Blood Culture x2 Reflex Set [OM.PC] Stat 02/13/21 20:19 CULTURE BLOOD [BC] Stat 05/07/21 21:19 Acetaminophen [TylenoL] 650 mg PO Q4H PRN Acetaminophen/HYDROcodone [[place] 325-5 MG] 1 tab PO Q4H PRN Morphine 2 mg IVPUSH Q2H PRN Ondansetron [Zofran] 4 mg IV Q6H PRN 02/13/21 21:19 Patient Status [ADT] Routine Antiembolic Devices [RC] 1000,2200 Notify Provider Vital Signs [RC] ASDIRECTED Oxygen Therapy [RC] .PRN Up With Assistance [RC] .PRN Up to Chair [RC] .PRN Vital Signs [RC] 0000,0400,0800,1200,1600,2000 Antiembolic Hose [OM.PC] Per Unit Routine 02/13/21 22:00 Clindamycin Phosphate in D5W [Cleocin in D5W 300 MG/50 ML] 300 mg Premix Bag 1 bag IV Q8H 02/13/21 23:00 Finasteride [Proscar] 5 mg PO BEDTIME Latanoprost [Xalatan 0.005% Ophth Soln] 0 ml EYEBOTH BEDTIME Loratadine [Claritin] 10 mg PO BEDTIME Losartan [Cozaar] 50 mg PO QPM Magnesium Oxide 500 mg PO BID Metoprolol Tartrate [Lopressor] 50 mg PO BID Nystatin [Nystatin Crm] 0 gm TOP TID atorvaSTATin [Lipitor] 10 mg PO BEDTIME 02/13/21 23:27 Resuscitation Status Routine 02/14/21 05:00 CULTURE WOUND [RM] Stat 02/14/21 07:00 Pantoprazole [ProTONIX] 40 mg PO ACBREAKFAST 02/14/21 08:00 Apixaban [Eliquis] 5 mg PO DAILY Ascorbic Acid [Vitamin C] 500 mg PO DAILY Cholecalciferol (Vitamin D3) [Vitamin D3] 50 mcg PO DAILY Folic Acid 1 mg PO DAILY Spironolactone [Aldactone] 25 mg PO DAILY Vitamin B Complex 1 each PO DAILY 02/14/21 09:15 Sodium Chloride 0.9% [Normal Saline] 1,000 ml IV ASDIRECTED 02/14/21 23:00 Fluconazole/Normal Saline [Diflucan in NS 200 MG/100 ML] 100 mg Premix Bag 1 bag IV Q24H 02/15/21 05:00 BASIC METABOLIC PANEL,BMP [CHEM] DAILY CBC WITH AUTO DIFF [HEME] DAILY 02/16/21 05:00 BASIC METABOLIC PANEL,BMP [CHEM] DAILY CBC WITH AUTO DIFF [HEME] DAILY - Plan Plan:: 02/14/21 1030am This patient came to the ER yesterday for fall, discovered to have elevated wbc and groin redness/rash. Today, patient reports he is feeling good. He reports his chest pain is much better, 10/19. THe pain is easily manipulated with palpation and movement, but today is much improved. The patient redness/rash to the groin is much [id number], but still involves the scrotum. Patient labs yesterday were wbc 22.9, na 133, potassium 5.1, bun 37. Today labs are wbc 16.8, na 132, potassium 5.4, bun 31. Elevated wbc could be due to cellulitis of the groin vs trauma fall. Will continue his admit, continue meds and plan. Possible discharge Tuesday if rash continues to improve and wbc continues to improve.
[2021-02-14] MEDS: atorvaSTATin 10 MG Tab PO SCH (20:18)
[2021-02-14] MEDS: Latanoprost 0.005% Ophth Soln 2.5 ML Bottle EYEBOTH SCH (20:18)
[2021-02-14] MEDS: Losartan 100 MG Tab PO SCH (20:19)
[2021-02-14] MEDS: Loratadine 10 MG Tab PO SCH (20:19)
[2021-02-14] MEDS: Finasteride 5 MG Tab PO SCH (20:19)
[2021-02-14] MEDS ORDERED: Temazepam 15 MG Cap PO PRN (20:52)
[2021-02-14] MEDS: Fluconazole/Normal Saline 100 MG in Premix Bag 1 BAG IV SCH (23:07)
[2021-02-15] MEDS: Acetaminophen 325 MG Tab PO PRN ×2 (05:05→11:43)
[2021-02-15] MEDS: Pantoprazole 40 MG Tab.CR PO SCH (06:43)
[2021-02-15] MEDS: Clindamycin Phosphate in D5W 300 MG in Premix Bag 1 BAG IV SCH ×6 (06:43→21:18)
[2021-02-15] MEDS: Metoprolol Tartrate 50 MG Tab PO SCH ×2 (08:02→21:02)
[2021-02-15] MEDS: Cholecalciferol (Vitamin D3) 25 MCG Tab PO SCH (08:03)
[2021-02-15] MEDS: Spironolactone 25 MG Tab PO SCH (08:03)
[2021-02-15] MEDS: Nystatin Crm 30 GM Tube TOP SCH ×3 (08:03→21:01)
[2021-02-15] MEDS: Ascorbic Acid 500 MG Tab PO SCH (08:03)
[2021-02-15] MEDS: Apixaban 5 MG Tab PO SCH (08:03)
[2021-02-15] MEDS: Vitamin B Complex Cap PO SCH (08:03)
[2021-02-15] MEDS: Folic Acid 1 MG Tab PO SCH (08:03)
--- NOTE | 2021-02-15 09:32 | PCM.PN ---
- General Info Date of Service: 02/15/21 Functional Status: Reports: Pain Controlled (with Tylenol), Tolerating Diet, Ambulating, Urinating - Review of Systems General: Reports: No Symptoms HEENT: Reports: No Symptoms Pulmonary: Reports: No Symptoms Cardiovascular: Reports: No Symptoms Gastrointestinal: Reports: No Symptoms Genitourinary: Reports: No Symptoms Musculoskeletal: Reports: Shoulder Pain (left shoulder, but reports controlled with Tylenol) Skin: Reports: Bruising (bialteral upper arms chronic) Neurological: Reports: No Symptoms Psychiatric: Reports: No Symptoms - Patient Data Vitals - Most Recent: Last Vital Signs Temp 97 F 02/15/21 08:00 Pulse 81 02/15/21 08:02 Resp 16 02/15/21 08:00 BP 168/83 H 02/15/21 08:02 Pulse Ox 98 02/15/21 08:00 Weight - Most Recent: 150 lb I&O - Last 24 Hours: Intake & Output 02/14/21 02/15/21 02/15/21 22:59 06:59 14:59 Intake Total 50 50 Balance 50 50 Lab Results Last 24 Hours: Laboratory Results - last 24 hr 02/15/21 02/15/21 Range/Units 05:00 05:00 WBC 18.4 H (5.0-10.0) 10^3/uL RBC 4.65 (4.50-6.00) 10^6/uL Hgb 15.8 (14.0-18.0) g/dL Hct 44.5 (40.0-54.0) % MCV 95.7 H (82.0-94.0) fL MCH 34.0 H (27.0-32.0) pg MCHC 35.5 (33.0-38.0) g/dL RDW Coeff of Jarvis 12.5 (11.0-15.0) % Plt Count 169 (150-400) 10^3/uL Neut % (Auto) 84.8 (35-85) % Lymph % (Auto) 5.5 L (10-55) % [place] % (Auto) 9.5 (0-16) % Eos % (Auto) 0 (0-5) % Baso % (Auto) 0.2 (0-3) % Neut # (Auto) 15.63 H (1.80-7.00) 10^3/uL Lymph # (Auto) 1.02 (1.00-4.80) 10^3/uL [place] # (Auto) 1.75 H (0.00-0.80) 10^3/uL Eos # (Auto) 0.00 (0.00-0.45) 10^3/uL Baso # (Auto) 0.03 10^3/uL Sodium 130 L (136-145) mEq/L Potassium 5.4 H (3.5-5.0) mEq/L Chloride 96 L (98-106) mEq/L Carbon Dioxide 27 (21-32) mmol/L BUN 27 H (7-18) mg/dL Creatinine 1.2 (0.7-1.3) mg/dL Est Cr Clr Drug Dosing 40.61 mL/min Estimated GFR (MDRD) 58 L (>=60) mL/min Glucose 177 H (75-99) mg/dL Calcium 8.6 (8.4-10.1) mg/dL Shon Results Last 24 Hours: Microbiology 02/13/21 20:19 Aerobic Blood Culture - Preliminary Blood - Venous NO GROWTH AFTER 1 DAY Anaerobic Blood Culture - Preliminary NO GROWTH AFTER 1 DAY Med Orders - Current: Current Medications Acetaminophen (Acetaminophen 325 Mg Tab) 650 mg PO Q4H PRN PRN Reason: Pain (Mild 1-3)/fever Last Admin: 02/15/21 05:05 Dose: 650 mg Documented by: Hydrocodone Bitart/Acetaminophen (Acetaminophen/Hydrocodone 325-5 Mg Tab) 1 tab PO Q4H PRN PRN Reason: Pain (moderate 4-6) Apixaban (Apixaban 5 Mg Tab) 5 mg PO DAILY [facility] Last Admin: 02/15/21 08:03 Dose: 5 mg Documented by: Ascorbic Acid (Ascorbic Acid 500 Mg Tab) 500 mg PO DAILY [facility] Last Admin: 02/15/21 08:03 Dose: 500 mg Documented by: Atorvastatin Calcium (Atorvastatin 10 Mg Tab) 10 mg PO BEDTIME [facility] Last Admin: 02/14/21 20:18 Dose: 10 mg Documented by: Cholecalciferol (Cholecalciferol (Vitamin D3) 25 Mcg Tab) 50 mcg PO DAILY [facility] Last Admin: 02/15/21 08:03 Dose: 50 mcg Documented by: Finasteride (Finasteride 5 Mg Tab) 5 mg PO BEDTIME [facility] Last Admin: 02/14/21 20:19 Dose: 5 mg Documented by: Folic Acid (Folic Acid 1 Mg Tab) 1 mg PO DAILY [facility] Last Admin: 02/15/21 08:03 Dose: 1 mg Documented by: Clindamycin Phosphate 300 mg/ (Premix) 50 mls @ 100 mls/hr IV Q8H [facility] Last Admin: 02/15/21 06:43 Dose: 100 mls/hr Documented by: Fluconazole/Sodium Chloride (100 mg/ Premix) 50 mls @ 50 mls/hr IV Q24H [facility] Last Admin: 02/14/21 23:07 Dose: 50 mls/hr Documented by: Latanoprost (Latanoprost 0.005% Ophth Soln 2.5 Ml Bottle) 0 ml EYEBOTH BEDTIME [facility] Last Admin: 02/14/21 20:18 Dose: 1 drop Documented by: Loratadine (Loratadine 10 Mg Tab) 10 mg PO BEDTIME [facility] Last Admin: 02/14/21 20:19 Dose: 10 mg Documented by: Losartan Potassium (Losartan 100 Mg Tab) 50 mg PO QPM [facility] Last Admin: 02/14/21 20:19 Dose: 50 mg Documented by: Magnesium Oxide (Magnesium Oxide 250 Mg Tab) 500 mg PO BID [facility] Last Admin: 02/15/21 08:03 Dose: 500 mg Documented by: Metoprolol Tartrate (Metoprolol Tartrate 50 Mg Tab) 50 mg PO BID [facility] Last Admin: 02/15/21 08:02 Dose: 50 mg Documented by: Morphine Sulfate (Morphine 2 Mg/Ml Syringe) 2 mg IVPUSH Q2H PRN PRN Reason: Pain (severe 7-10) Nystatin (Nystatin Crm 30 Gm Tube) 0 gm TOP TID [facility] Last Admin: 02/15/21 08:03 Dose: 1 applic Documented by: Ondansetron HCl (Ondansetron 4 Mg/2 Ml Sdv) 4 mg IV Q6H PRN PRN Reason: Nausea/Vomiting Pantoprazole Sodium (Pantoprazole 40 Mg Tab.Cr) 40 mg PO ACBREAKFAST [facility] Last Admin: 02/15/21 06:43 Dose: 40 mg Documented by: Spironolactone (Spironolactone 25 Mg Tab) 25 mg PO DAILY [facility] Last Admin: 02/15/21 08:03 Dose: 25 mg Documented by: Temazepam (Temazepam 15 Mg Cap) 15 mg PO BEDTIME PRN PRN Reason: Insomnia Last Admin: 02/14/21 21:48 Dose: 15 mg Documented by: Vitamin B Complex (Vitamin B Complex Cap) 1 each PO DAILY [facility] Last Admin: 02/15/21 08:03 Dose: 1 each Documented by: Discontinued Medications Diphtheria/Tetanus/Acell Pertussis (Diphtheria,Pertussis(Acell),Tetanus Vaccine 0.5 Ml Syringe) 0.5 ml IM .ONCE ONE Stop: 02/13/21 18:29 Last Admin: 02/13/21 18:51 Dose: 0.5 ml Documented by: Sodium Chloride (Normal Saline) 1,000 mls @ 100 mls/hr IV ASDIRECTED [facility] Stop: 02/14/21 07:18 Last Admin: 02/13/21 22:39 Dose: 100 mls/hr Documented by: Fluconazole/Sodium Chloride (200 mg/ Premix) 100 mls @ 100 mls/hr IV Q24H [facility] Last Admin: 02/13/21 23:29 Dose: Not Given Documented by: Fluconazole/Sodium Chloride (200 mg/ Premix) 100 mls @ 100 mls/hr IV NOW STA Stop: 02/13/21 23:36 Last Admin: 02/13/21 23:22 Dose: 100 mls/hr Documented by: Sodium Chloride (Normal Saline) 1,000 mls @ 75 mls/hr IV ASDIRECTED [facility] Stop: 02/14/21 22:34 Last Admin: 02/14/21 12:07 Dose: 75 mls/hr Documented by: Morphine Sulfate (Morphine 2 Mg/Ml Syringe) 2 mg IVPUSH ONETIME ONE Stop: 02/13/21 20:23 Last Admin: 02/13/21 22:37 Dose: 2 mg Documented by: Ondansetron HCl (Ondansetron 4 Mg/2 Ml Sdv) 4 mg IVPUSH NOW STA Stop: 02/13/21 20:24 Last Admin: 02/13/21 22:33 Dose: 4 mg Documented by: - Exam General: Alert, Oriented, Cooperative, No Acute Distress HEENT: Pupils Equal, Pupils Reactive, Mucous Membr. Moist/Ramsay Neck: Supple Lungs: Clear to Auscultation, Normal Respiratory Effort Cardiovascular: Regular Rate, Regular Rhythm GI/Abdominal Exam: Normal Bowel Sounds, Soft, Non-Tender, No Organomegaly, No Distention, No Abnormal Bruit, No Mass, Pelvis Stable Back Exam: Normal Inspection, Full Range of Motion Extremities: Normal Range of Motion, No Pedal Edema, Normal Capillary Refill, Other (mild tenderness, left elbow, left shoulder. ROM intact. Neurovascular intact. Pulses +2, cap refill < 2 sec, sensory/motor function intact. ) Peripheral Pulses: 2+: Radial (L), Radial (R), Posterior Tibial (L), Posterior Tibial (R), Dorsalis Pedis (L), Dorsalis Pedis (R) Skin: Warm, Dry, Ecchymosis (bilateral arms chronic) Neurological: No New Focal Deficit Psy/Mental Status: Alert, Normal Affect, Normal Mood - Patient Data Lab Results Last 24 hrs: Laboratory Results - last 24 hr 02/15/21 02/15/21 Range/Units 05:00 05:00 WBC 18.4 H (5.0-10.0) 10^3/uL RBC 4.65 (4.50-6.00) 10^6/uL Hgb 15.8 (14.0-18.0) g/dL Hct 44.5 (40.0-54.0) % MCV 95.7 H (82.0-94.0) fL MCH 34.0 H (27.0-32.0) pg MCHC 35.5 (33.0-38.0) g/dL RDW Coeff of Jarvis 12.5 (11.0-15.0) % Plt Count 169 (150-400) 10^3/uL Neut % (Auto) 84.8 (35-85) % Lymph % (Auto) 5.5 L (10-55) % [place] % (Auto) 9.5 (0-16) % Eos % (Auto) 0 (0-5) % Baso % (Auto) 0.2 (0-3) % Neut # (Auto) 15.63 H (1.80-7.00) 10^3/uL Lymph # (Auto) 1.02 (1.00-4.80) 10^3/uL [place] # (Auto) 1.75 H (0.00-0.80) 10^3/uL Eos # (Auto) 0.00 (0.00-0.45) 10^3/uL Baso # (Auto) 0.03 10^3/uL Sodium 130 L (136-145) mEq/L Potassium 5.4 H (3.5-5.0) mEq/L Chloride 96 L (98-106) mEq/L Carbon Dioxide 27 (21-32) mmol/L BUN 27 H (7-18) mg/dL Creatinine 1.2 (0.7-1.3) mg/dL Est Cr Clr Drug Dosing 40.61 mL/min Estimated GFR (MDRD) 58 L (>=60) mL/min Glucose 177 H (75-99) mg/dL Calcium 8.6 (8.4-10.1) mg/dL Result Diagrams: 02/15/21 05:00 02/15/21 05:00 Shon Results Last 24 hrs: Microbiology 02/13/21 20:19 Aerobic Blood Culture - Preliminary Blood - Venous NO GROWTH AFTER 1 DAY Anaerobic Blood Culture - Preliminary NO GROWTH AFTER 1 DAY Sepsis Event Note - Evaluation Sepsis Screening Result: No Definite Risk - Focused Exam Vital Signs: Vital Signs Temp Pulse Pulse Resp BP BP Pulse Ox 02/15/21 08:02 81 168/83 H 02/15/21 08:00 97 F 81 16 168/83 H 98 02/15/21 03:15 96.2 F L 86 20 175/95 H 100 02/15/21 00:00 96.7 F L 76 18 151/96 H 98 - Problem List Review Problem List Initiated/Reviewed/Updated: Yes - My Orders Last 24 Hours: My Active Orders 02/14/21 20:52 Temazepam [Restoril] 15 mg PO BEDTIME PRN 02/14/21 23:00 Fluconazole/Normal Saline [Diflucan in NS 200 MG/100 ML] 100 mg Premix Bag 1 bag IV Q24H 02/16/21 05:00 BASIC METABOLIC PANEL,BMP [CHEM] DAILY CBC WITH AUTO DIFF [HEME] DAILY - Plan Plan:: 02/14/21 1030am This patient came to the ER yesterday for fall, discovered to have elevated wbc and groin redness/rash. Today, patient reports he is feeling good. He reports his chest pain is much better, 10/19. THe pain is easily manipulated with palpation and movement, but today is much improved. The patient redness/rash to the groin is much [id number], but still involves the scrotum. Patient labs yesterday were wbc 22.9, na 133, potassium 5.1, bun 37. Today labs are wbc 16.8, na 132, potassium 5.4, bun 31. Elevated wbc could be due to cellulitis of the groin vs trauma fall. Will continue his admit, continue meds and plan. Possible discharge Tuesday if rash continues to improve and wbc continues to improve. 02/15/21 0900am This patient today reports he is a little more generally sore all over his body, but reports left shoulder pain. Patient reports worse with movement, but resolved after Tylenol. Patient groin rash has significantly improved. 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 Patient reports his rash feels much better today. Patient labs are wbc 18.4, Na 130, Potassium 5.4, BUN 27, CR 1.2. Fluids have been discontinued. Patient sitting up in the chair reading a book appears comfortable. Will continue admit, will continue current meds. Patient may be discharged home Tuesday or Tuesday if improvement clinically continues. Will continue to monitor his labs and eivn flannery tomorrow.
[2021-02-15] MEDS: Latanoprost 0.005% Ophth Soln 2.5 ML Bottle EYEBOTH SCH (21:01)
[2021-02-15] MEDS: Loratadine 10 MG Tab PO SCH (21:04)
[2021-02-15] MEDS: atorvaSTATin 10 MG Tab PO SCH (21:04)
[2021-02-15] MEDS: Losartan 100 MG Tab PO SCH (21:05)
[2021-02-15] MEDS: Finasteride 5 MG Tab PO SCH (21:05)
[2021-02-15] MEDS: Acetaminophen/HYDROcodone 325-5 MG Tab PO PRN (21:13)
[2021-02-15] MEDS: Fluconazole/Normal Saline 100 MG in Premix Bag 1 BAG IV SCH (22:04)
[2021-02-15] MEDS ORDERED: Sodium Chloride 0.9% 1,000 ML IV SCH (22:15)
[2021-02-16] MEDS: Acetaminophen/HYDROcodone 325-5 MG Tab PO PRN (03:07)
[2021-02-16] MEDS: Pantoprazole 40 MG Tab.CR PO SCH (06:24)
[2021-02-16] MEDS: Clindamycin Phosphate in D5W 300 MG in Premix Bag 1 BAG IV SCH ×2 (06:24)
[2021-02-16 07:46] LABS: CHLORIDE,CL 92 mEq/L (98-106)
[2021-02-16 07:52] LABS: SODIUM,NA 124 mEq/L (136-145)
[2021-02-16] MEDS: Folic Acid 1 MG Tab PO SCH (08:26)
[2021-02-16] MEDS: Spironolactone 25 MG Tab PO SCH (08:27)
[2021-02-16] MEDS: Ascorbic Acid 500 MG Tab PO SCH (08:27)
[2021-02-16] MEDS: Vitamin B Complex Cap PO SCH (08:27)
[2021-02-16] MEDS: Nystatin Crm 30 GM Tube TOP SCH ×3 (08:27→19:55)
[2021-02-16] MEDS: Cholecalciferol (Vitamin D3) 25 MCG Tab PO SCH (08:27)
[2021-02-16] MEDS: Apixaban 5 MG Tab PO SCH (08:27)
[2021-02-16] MEDS: Metoprolol Tartrate 50 MG Tab PO SCH ×2 (08:27→19:53)
--- NOTE | 2021-02-16 08:59 | PCM.SN.2 ---
- Free Text/Narrative Note: 02/16/21 03:15am ROMMEL Monroy called me to report patient is complaining of headache and neck pain with bilateral shoulder pain. Will order repeat head ct, and cervical ct. Patient to be given PRN pain medication that had been ordered. 02/16/21 08:15am Radiologist discussed CT results. Chronic sinusitis, no acute intracranial abnormality. Cervical, no acute vetebral abnormalities. 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 I discussed patient and results with Dr. Ruby who is now assuming care. RN also called with NA of 122.
[2021-02-16] MEDS: Clindamycin HCl 150 MG Cap PO SCH ×3 (11:12→19:54)
--- NOTE | 2021-02-16 13:30 | PN ---
DATE: 02/16/2021 S: Mr. Momin is an 85-year-old male who was originally admitted for cellulitis to his lower extremities. He has history of sounds like chronic tinea cruris and he came in suspecting that was his infectious problem. Ultimately, looked like he had a secondary bacterial infection and was put on IV Cleocin to go along with IV Diflucan. He has clinically resolved very nicely, although this morning his routine lab work came back showing him to be hyponatremic with a sodium dropping to 124. Apparently, he has had this in the past, and I asked him about a workup for this, and he denies that that was ever done or at least that he is aware of. The patient did have a fall before coming in and ultimately was having more pain in his neck and chest. 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 O: GENERAL: When I examine the patient today, he is pleasant, alert, and cooperative. Appears in absolutely no distress. HEENT: Grossly benign. NECK: His neck is supple. Veins are flat. LUNGS: Lung sounds are clear. CARDIAC: Tones are regular. ABDOMEN: Soft. EXTREMITIES: Show no further edema or signs of cellulitis. The inguinal areas have resolving tinea cruris, but I do not see any secondary cellulitis at this point. He has a little bit of scrotal edema as well but all in all, markedly improved. ASSESSMENT: 1. TINEA CRURIS. 2. BILATERAL LOWER EXTREMITY CELLULITIS RELATED TO ABOVE. 3. [place] HYPONATREMIA. 4. RIGHT CAROTID OCCLUSION. 5. EPISODIC CONFUSION. 6. ELEVATED WHITE COUNT. P: The patient is going to have a peripheral smear today. His white count is back up to over 20,000 and he does have 86% neutrophils. He does not appear toxic. I am going to get a peripheral smear. I am worried about a possible leukemia processes as he really does not have anything going on to suggest a reason for this as far as an infectious disease standpoint. He is afebrile and his infection looks almost resolved. 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 We will get a carotid ultrasound today due to the fact that his CT of his C-spine did show a carotid occlusion. I am going to switch him off both IV Diflucan and Cleocin, switch him to orals. We will monitor his lab work again tomorrow and most of this, assuming his infection is under control, could be initiated as an outpatient. SALLY/HETAL /[id number]
[2021-02-16] MEDS: atorvaSTATin 10 MG Tab PO SCH (19:53)
[2021-02-16] MEDS: Losartan 100 MG Tab PO SCH (19:53)
[2021-02-16] MEDS: Loratadine 10 MG Tab PO SCH (19:54)
[2021-02-16] MEDS: Finasteride 5 MG Tab PO SCH (19:54)
[2021-02-16] MEDS: Latanoprost 0.005% Ophth Soln 2.5 ML Bottle EYEBOTH SCH (19:56)
--- NOTE | 2021-02-16 21:26 | PCM.PN.BH ---
- General Info Date of Service: 02/16/21 - Review of Systems Musculoskeletal: Reports: No Symptoms Psychiatric: Reports: No Symptoms - Patient Data Vitals - Most Recent: Last Vital Signs Temp 36.1 C 02/16/21 16:00 Pulse 85 02/16/21 19:53 Resp 16 02/16/21 16:00 BP 145/77 H 02/16/21 19:53 Pulse Ox 98 02/16/21 16:00 - Exam General: Reports: Alert, Oriented Neuro Exam - Mental Status: Reports: Alert, Oriented x3, Normal Mood/Affect Psychiatric: Reports: Alert, Normal Affect, Normal Mood Physical Exam Comments:: Nurses report mood lability. - Plan FREE TEXT/NARRATIVE: Undersign to room for consult and after introductions patient stated he knew why I was there. States last night he was having a lot of uncontrolled pain and told the nurse he wanted to kill himself. Patient denies suicidal ideation today and states he made the comment last evening in the moment because of the amount of pain he was experiencing. He denies feeling depressed today. States he has experienced depression in the past over the last 3-4 years because of falls and how it was impacting his life. Patient denies the need for antidepressant therapy at this time. - Orders Orders Last 24hrs: Active Orders 24 hr Category Date Time Status Notify Provider Consults [RC] ASDIRECTED Care 02/16/21 10:13 Active Consult to Physician [CONS] Stat Cons 02/16/21 10:13 Active Carotid Comp [US] Routine Exams 02/16/21 10:05 Taken Cervical Spine wo Cont [CT] Routine Exams 02/16/21 07:00 Taken Chest 2V [CR] Routine Exams 02/16/21 10:05 Taken Head wo Cont [CT] Routine Exams 02/16/21 07:00 Taken BASIC METABOLIC PANEL,BMP [CHEM] Routine Lab 02/17/21 10:11 Ordered BLOOD SMEARS TO PATHOLOGIST [REF] Stat Lab 02/16/21 10:02 Ordered CBC WITH AUTO DIFF [HEME] Routine Lab 02/17/21 10:11 Ordered Fluconazole [Diflucan] Med 02/17/21 08:00 Active 100 mg PO DAILY Sodium Chloride 0.9% [Normal Saline] 1,000 ml Med 02/15/21 22:15 Active IV ASDIRECTED clindamycin HCL [Cleocin] Med 02/16/21 10:00 Active 150 mg PO TID Medication Orders Acetaminophen (Acetaminophen 325 Mg Tab) 650 mg PO Q4H PRN PRN Reason: Pain (Mild 1-3)/fever Last Admin: 02/15/21 11:43 Dose: 650 mg Documented by: Admin: 02/15/21 05:05 Dose: 650 mg Documented by: MARIUSZ Hydrocodone Bitart/Acetaminophen (Acetaminophen/Hydrocodone 325-5 Mg Tab) 1 tab PO Q4H PRN PRN Reason: Pain (moderate 4-6) Last Admin: 02/16/21 03:07 Dose: 1 tab Documented by: Admin: 02/15/21 21:13 Dose: 1 tab Documented by: MARIUSZ Apixaban (Apixaban 5 Mg Tab) 5 mg PO DAILY [facility] Last Admin: 02/16/21 08:27 Dose: 5 mg Documented by: Admin: 02/15/21 08:03 Dose: 5 mg Documented by: Admin: 02/14/21 07:45 Dose: 5 mg Documented by: TERRI Ascorbic Acid (Ascorbic Acid 500 Mg Tab) 500 mg PO DAILY [facility] Last Admin: 02/16/21 08:27 Dose: 500 mg Documented by: Admin: 02/15/21 08:03 Dose: 500 mg Documented by: Admin: 02/14/21 07:46 Dose: 500 mg Documented by: TERRI Atorvastatin Calcium (Atorvastatin 10 Mg Tab) 10 mg PO BEDTIME [facility] Last Admin: 02/16/21 19:53 Dose: 10 mg Documented by: Admin: 02/15/21 21:04 Dose: 10 mg Documented by: Admin: 02/14/21 20:18 Dose: 10 mg Documented by: Admin: 02/13/21 23:02 Dose: 10 mg Documented by: MARIUSZ Cholecalciferol (Cholecalciferol (Vitamin D3) 25 Mcg Tab) 50 mcg PO DAILY [facility] Last Admin: 02/16/21 08:27 Dose: 50 mcg Documented by: Admin: 02/15/21 08:03 Dose: 50 mcg Documented by: Admin: 02/14/21 07:47 Dose: 50 mcg Documented by: TERRI Clindamycin HCl (Clindamycin Hcl 150 Mg Cap) 150 mg PO TID [facility] Last Admin: 02/16/21 19:54 Dose: 150 mg Documented by: Admin: 02/16/21 14:23 Dose: 150 mg Documented by: Admin: 02/16/21 11:12 Dose: 150 mg Documented by: MARGI Finasteride (Finasteride 5 Mg Tab) 5 mg PO BEDTIME [facility] Last Admin: 02/16/21 19:54 Dose: 5 mg Documented by: Admin: 02/15/21 21:05 Dose: 5 mg Documented by: Admin: 02/14/21 20:19 Dose: 5 mg Documented by: Admin: 02/13/21 23:03 Dose: 5 mg Documented by: MARIUSZ Fluconazole (Fluconazole 100 Mg Tab) 100 mg PO DAILY [facility] Folic Acid (Folic Acid 1 Mg Tab) 1 mg PO DAILY [facility] Last Admin: 02/16/21 08:26 Dose: 1 mg Documented by: Admin: 02/15/21 08:03 Dose: 1 mg Documented by: Admin: 02/14/21 07:47 Dose: 1 mg Documented by: TERRI Sodium Chloride (Normal Saline) 1,000 mls @ 30 mls/hr IV ASDIRECTED [facility] Stop: 02/19/21 22:06 Last Admin: 02/15/21 22:18 Dose: 30 mls/hr Documented by: MARIUSZ Latanoprost (Latanoprost 0.005% Ophth Soln 2.5 Ml Bottle) 0 ml EYEBOTH BEDTIME [facility] Last Admin: 02/16/21 19:56 Dose: 1 drop Documented by: Admin: 02/15/21 21:01 Dose: 1 drop Documented by: Admin: 02/14/21 20:18 Dose: 1 drop Documented by: Admin: 02/13/21 23:23 Dose: 1 drop Documented by: MARIUSZ Loratadine (Loratadine 10 Mg Tab) 10 mg PO BEDTIME [facility] Last Admin: 02/16/21 19:54 Dose: 10 mg Documented by: Admin: 02/15/21 21:04 Dose: 10 mg Documented by: Admin: 02/14/21 20:19 Dose: 10 mg Documented by: Admin: 02/13/21 23:03 Dose: 10 mg Documented by: MARIUSZ Losartan Potassium (Losartan 100 Mg Tab) 50 mg PO QPM [facility] Last Admin: 02/16/21 19:53 Dose: 50 mg Documented by: Admin: 02/15/21 21:05 Dose: 50 mg Documented by: Admin: 02/14/21 20:19 Dose: 50 mg Documented by: Admin: 02/13/21 23:05 Dose: 50 mg Documented by: MARIUSZ Magnesium Oxide (Magnesium Oxide 250 Mg Tab) 500 mg PO BID [facility] Last Admin: 02/16/21 19:51 Dose: 500 mg Documented by: Admin: 02/16/21 08:27 Dose: 500 mg Documented by: Admin: 02/15/21 21:02 Dose: 500 mg Documented by: Admin: 02/15/21 08:03 Dose: 500 mg Documented by: Admin: 02/14/21 20:18 Dose: 500 mg Documented by: Admin: 02/14/21 07:46 Dose: 500 mg Documented by: Admin: 02/13/21 23:02 Dose: 500 mg Documented by: MARIUSZ Metoprolol Tartrate (Metoprolol Tartrate 50 Mg Tab) 50 mg PO BID [facility] Last Admin: 02/16/21 19:53 Dose: 50 mg Documented by: Admin: 02/16/21 08:27 Dose: 50 mg Documented by: Admin: 02/15/21 21:02 Dose: 50 mg Documented by: Admin: 02/15/21 08:02 Dose: 50 mg Documented by: Admin: 02/14/21 20:18 Dose: 50 mg Documented by: Admin: 02/14/21 07:45 Dose: 50 mg Documented by: Admin: 02/13/21 23:06 Dose: 50 mg Documented by: MARIUSZ Morphine Sulfate (Morphine 2 Mg/Ml Syringe) 2 mg IVPUSH Q2H PRN PRN Reason: Pain (severe 7-10) Last Admin: 02/16/21 00:52 Dose: 2 mg Documented by: MARIUSZ Nystatin (Nystatin Crm 30 Gm Tube) 0 gm TOP TID [facility] Last Admin: 02/16/21 19:55 Dose: 1 applic Documented by: Admin: 02/16/21 14:23 Dose: 1 applic Documented by: Admin: 02/16/21 08:27 Dose: 1 applic Documented by: Admin: 02/15/21 21:01 Dose: 1 applic Documented by: Admin: 02/15/21 13:43 Dose: 1 applic Documented by: Admin: 02/15/21 08:03 Dose: 1 applic Documented by: Admin: 02/14/21 20:18 Dose: 1 applic Documented by: Admin: 02/14/21 14:48 Dose: 1 applic Documented by: Admin: 02/14/21 07:47 Dose: 1 applic Documented by: Admin: 02/13/21 23:02 Dose: 1 applic Documented by: MARIUSZ Ondansetron HCl (Ondansetron 4 Mg/2 Ml Sdv) 4 mg IV Q6H PRN PRN Reason: Nausea/Vomiting Last Admin: 02/16/21 00:47 Dose: 4 mg Documented by: MARIUSZ Pantoprazole Sodium (Pantoprazole 40 Mg Tab.Cr) 40 mg PO ACBREAKFAST [facility] Last Admin: 02/16/21 06:24 Dose: 40 mg Documented by: Admin: 02/15/21 06:43 Dose: 40 mg Documented by: Admin: 02/14/21 06:29 Dose: 40 mg Documented by: MARIUSZ Spironolactone (Spironolactone 25 Mg Tab) 25 mg PO DAILY [facility] Last Admin: 02/16/21 08:27 Dose: 25 mg Documented by: Admin: 02/15/21 08:03 Dose: 25 mg Documented by: Admin: 02/14/21 07:46 Dose: 25 mg Documented by: TERRI Temazepam (Temazepam 15 Mg Cap) 15 mg PO BEDTIME PRN PRN Reason: Insomnia Last Admin: 02/14/21 21:48 Dose: 15 mg Documented by: MARIUSZ Vitamin B Complex (Vitamin B Complex Cap) 1 each PO DAILY [facility] Last Admin: 02/16/21 08:27 Dose: 1 each Documented by: Admin: 02/15/21 08:03 Dose: 1 each Documented by: Admin: 02/14/21 07:46 Dose: 1 each Documented by: TERRI TeleHealth - TeleHealth Patient Service Facility: [facility]: [facility] Informed Consent: Telemedicine Audio/Visual Informed Consent: The risks, benefits, and alternatives to the telehealth visit were explained to the patient and the patient consented to this modality of care. The telehealth visit was carried out via a secure, web-based conferencing system. This telemedicine service was a real-time, two-way interactive video and communication between the patient and the provider. All the parties involved were identified and approved by the patient prior to the visit. Any physical exam was assisted by the patient. Unless noted otherwise, the provider was located at their usual clinic location, and the patient was at their place of residence. Patient identity was confirmed by having the patient state their name and date of . All c ommunications with the patient (verbal, audiovisual, and written) were documented in the patients medical record per documentation standards.
[2021-02-17] MEDS ORDERED: Fluconazole 100 MG Tab PO SCH (08:00)
[2021-02-17 08:05] VITALS: BP 113/67; PULSE 78
[2021-02-17] MEDS: Folic Acid 1 MG Tab PO SCH (08:05)
[2021-02-17] MEDS: Apixaban 5 MG Tab PO SCH (08:05)
[2021-02-17] MEDS: Clindamycin HCl 150 MG Cap PO SCH (08:05)
[2021-02-17] MEDS: Ascorbic Acid 500 MG Tab PO SCH (08:05)
[2021-02-17] MEDS: Metoprolol Tartrate 50 MG Tab PO SCH (08:05)
[2021-02-17] MEDS: Vitamin B Complex Cap PO SCH (08:05)
[2021-02-17] MEDS: Cholecalciferol (Vitamin D3) 25 MCG Tab PO SCH (08:05)
[2021-02-17] MEDS: Spironolactone 25 MG Tab PO SCH (08:05)
[2021-02-17] MEDS: Pantoprazole 40 MG Tab.CR PO SCH (08:05)
--- NOTE | 2021-02-17 12:19 | DISCH ---
ADMISSION DIAGNOSES: 1. Fall with closed head injury. 2. Left elbow contusion. 3. Chest wall strain. 4. Leukocytosis. DISCHARGE DIAGNOSIS: 1. FALL WITH MILD CLOSED HEAD INJURY. 2. LOWER EXTREMITY CELLULITIS. 3. BILATERAL TINEA CRURIS OF GROINS. 4. HYPONATREMIA. 5. ELEVATED WHITE BLOOD CELL COUNT. 6. RIGHT CAROTID OCCLUSION. 7. HYPERTENSION. HISTORY: The patient is an 85-year-old male who fell at home and sustained a mild closed head injury, neck strain, and some shoulder discomfort. He was evaluated in our emergency room by Estrada Romero and for the most part was cleared from a trauma point of view. He did have elevated white blood cell count of 23,000 on admit and an elevated specific gravity. Because of the white blood cell count and elevated specific gravity concerning for dehydration, he was admitted for monitoring overnight and IV fluids. HOSPITAL COURSE: During the patient's stay, he was clinically stable. It was found immediately after admission that he had a significant tinea cruris in both inguinal areas with a lot of redness extending into the scrotal area and upper thighs bilaterally. He was initiated on IV Cleocin for suspected cellulitis and continued on IV Diflucan as well. Over the next 3 days, the patient did fine. His cellulitis resolved almost completely, although he still has a small amount of scrotal swelling and erythema. He will be continued on oral Cleocin and oral Diflucan as an outpatient. His white blood cell count remained high during his stay, although his CRP is 0. Peripheral blood smear was accomplished and is yet to come back to evaluate for the elevated white blood cell count and that will be followed up as an outpatient by the patient's primary physician, Dr. Eulogio Puente. He did have a drop in his sodium during his stay which has slightly come up as well. He has had a history of this. Apparently about 6 months ago, he had a similar-type picture and we will continue to follow this as an outpatient as well. His CT of the head was negative as was the chest to evaluate for any pulmonary or cranial pathology. During his CAT scan of the head and neck after his admission due to a headache, it was found that he had significant blockage in his right carotid artery. 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 I did talk to Dr. Eulogio Puente about this and he will discuss further with the patient on his followup next week. The blood pressures have been fine while here. He looks clinically stable. He is absolutely asymptomatic and we plan on discharging him home on 1 more week of Cleocin and Diflucan. Followup appointment will be made with Dr. Eulogio Puente this upcoming week for a recheck. Otherwise, no changes. COMPLICATIONS: During his stay were none. CONSULTATIONS: None. PROCEDURES: CT scan of the head x2, CT scan of neck, carotid ultrasound, and chest x-ray. DISPOSITION: The patient will be discharged home with instructions for followup early next week. SALLY/HETAL /[id number]
== END 2021-02-17 11:10 | disposition home or self-care (01) | DRG 603 ==
LOC: CC.ED 18:17 → CC.MS 20:41
PROVIDERS: ADMIT Nurse Practitioner; ATTEND Family Medicine
DX: L03.314 Cellulitis of groin (principal); B37.9 Candidiasis, unspecified; L03.115 Cellulitis of right lower limb; E87.1 Hypo-osmolality and hyponatremia; W18.39XA Other fall on same level, initial encounter; Y92.096 Garden or yard of other non-institutional residence as the place of occurrence of the external cause; B35.6 Tinea cruris; D72.820 Lymphocytosis (symptomatic); H54.7 Unspecified visual loss; H40.9 Unspecified glaucoma; E78.00 Pure hypercholesterolemia, unspecified; S09.90XA Unspecified injury of head, initial encounter; K57.90 Diverticulosis of intestine, part unspecified, without perforation or abscess without bleeding; K21.9 Gastro-esophageal reflux disease without esophagitis; K44.9 Diaphragmatic hernia without obstruction or gangrene; E73.9 Lactose intolerance, unspecified; Z87.19 Personal history of other diseases of the digestive system; Z20.828 Contact with and (suspected) exposure to other viral communicable diseases; N40.0 Benign prostatic hyperplasia without lower urinary tract symptoms; M19.90 Unspecified osteoarthritis, unspecified site; G89.29 Other chronic pain; M54.2 Cervicalgia; E11.9 Type 2 diabetes mellitus without complications; Z88.0 Allergy status to penicillin; Z88.2 Allergy status to sulfonamides; Z88.8 Allergy status to other drugs, medicaments and biological substances; Z79.01 Long term (current) use of anticoagulants; L03.116 Cellulitis of left lower limb; W19.XXXA Unspecified fall, initial encounter; Z79.899 Other long term (current) drug therapy; I65.21 Occlusion and stenosis of right carotid artery; S50.02XA Contusion of left elbow, initial encounter; I10 Essential (primary) hypertension; E86.0 Dehydration; S29.011A Strain of muscle and tendon of front wall of thorax, initial encounter; Z20.822 Contact with and (suspected) exposure to COVID-19
CPT/HCPCS: 36415; 70450; 71046; 71101-LT; 72125; 73080-LT; 80048; 80053; 81001; 82550; 83605; 83615; 84484; 85025; 85046; 85610; 86140; 87040; 90471; 90715; 93005; 93010; 93880; 99285-25; A9270-GY; J1450; J2270; J2405; J3490; J7030; U0002

== ENCOUNTER 2021-09-07 07:22 | Inpatient (IN) | payer MEDICARE, OTHER ==
--- NOTE | 2021-09-07 08:30 | EDM.PDOC ---
ED HPI GENERAL MEDICAL PROBLEM - General Chief Complaint: General Stated Complaint: weakness Time Seen by Provider: 09/07/21 08:24 Source of Information: Reports: Patient, Family History Limitations: Reports: No Limitations - History of Present Illness INITIAL COMMENTS - FREE TEXT/NARRATIVE: Thomas is a pleasant 86 year old male who presents via [place] [facility] to the ER with c/o weakness and shortness of breath. He reports that he started feeling unwell on . Reports since that time he has had heart palpitations and has felt more weak than normal. Does admit to a nonproductive cough. Reports he has had some chills but has not had fever to his knowledge. Temp upon arrival is 100.1. O2 sats enroute were 88% on RA but improved to 94% on 2 L O2. He denies any N/V/D. Reports up until yesterday he had been eating and drinking well but the past 24 hours has not had much of an appetite. Has prostate cancer. Was started on Casodex by his oncologist on 09/01/21. Recent bone scan shows uptake at T10 and T11. He is scheduled to have CT chest/abd/pelvis in near future to r/o metastasis. Has hx of afib and is anticoagulated on Eliquis. Denies any black/bloody stools. Onset Date: 09/03/21 Duration: Getting Worse Location: Reports: Chest, Generalized Associated Symptoms: Reports: Cough, Fever/Chills, Loss of Appetite, Malaise, Shortness of Breath, Weakness. Denies: Confusion, Chest Pain, cough w sputum, Diaphoresis, Headaches, Nausea/Vomiting, Rash, Seizure, Syncope - Related Data Allergies Allergy/AdvReac Type Severity Reaction Status Date / Time Penicillins Allergy Intermediate Swelling Verified 09/07/21 07:51 lactose Allergy Other Verified 09/07/21 07:51 torsemide Allergy Cannot Verified 09/07/21 08:53 Remember Sulfa (Sulfonamide AdvReac Intermediate Nausea Verified 09/07/21 07:51 Antibiotics) niacin AdvReac Burning Verified 09/07/21 07:51 Home Meds: Home Meds Loratadine [Claritin] 10 mg PO BEDTIME 02/13/14 [History] Cholecalciferol (Vitamin D3) [Vitamin D3] 2,000 unit PO DAILY 02/15/14 [History] Finasteride [Proscar] 5 mg PO BEDTIME 02/15/14 [History] Metoprolol Tartrate 50 mg PO BID 02/15/14 [History] Vitamin B Complex [B Complex] 1 each PO DAILY 02/15/14 [History] atorvaSTATin [Lipitor] 10 mg PO BEDTIME 08/20/15 [History] Folic Acid 1 mg PO DAILY 11/03/17 [History] Pantoprazole Sodium 40 mg PO DAILY 10/25/18 [History] Apixaban [Eliquis] 5 mg PO DAILY #30 tablet 10/27/18 [Rx] Latanoprost [Xalatan 0.005% Ophth Soln] 1 drop EYEBOTH BEDTIME 02/13/21 [History] Acetaminophen [Tylenol] 650 mg PO Q4H PRN tablet 02/17/21 [Rx] Acetaminophen/HYDROcodone [[place] 325-5 MG] 1 tab PO Q4H PRN tablet 02/17/21 [Rx] Ascorbate Calcium [Vitamin C] 500 mg PO DAILY 09/07/21 [History] Bicalutamide [Casodex] 50 mg PO DAILY 09/07/21 [History] Ciprofloxacin [Ciprofloxacin HCl] 500 mg PO ASDIRECTED PRN 09/07/21 [History] Furosemide [Lasix] 40 mg PO DAILY 09/07/21 [History] Ketoconazole [Nizoral 2% Crm] 1 applic TOP DAILY 09/07/21 [History] Magnesium Oxide 500 mg PO BID 09/07/21 [History] Past Medical History HEENT History: Reports: Glaucoma, Impaired Vision, Other (See Below) Other HEENT History: WEARS CORRECTIVE LENS Cardiovascular History: Reports: High Cholesterol, Hypertension Other Cardiovascular History: CAROTID VASCULAR DISEASE Respiratory History: Reports: None Gastrointestinal History: Reports: Colon Polyp, Diverticulosis, Gastritis, GERD, Hiatal Hernia, Other (See Below) Other Gastrointestinal History: LACTOSE INTOLERANCE. HEPATIC STEATOSIS. HX OF 'RECTAL HYPERPLASTIC POLYP' Genitourinary History: Reports: BPH Musculoskeletal History: Reports: Arthritis, Neck Pain, Chronic Neurological History: Reports: None Psychiatric History: Reports: None Endocrine/Metabolic History: Reports: Diabetes, Type II Hematologic History: Reports: None Immunologic History: Reports: None Oncologic (Cancer) History: Reports: None Dermatologic History: Reports: None - Infectious Disease History Infectious Disease History: Reports: Chicken Pox, Hepatitis non A,B,C, Measles, Mumps - Past Surgical History Head Surgeries/Procedures: Reports: None HEENT Surgical History: Reports: None, Cataract Surgery Cardiovascular Surgical History: Reports: Carotid Endarterectomy, Coronary Artery Bypass Respiratory Surgical History: Reports: None Other Respiratory Surgeries/Procedures: uses CPAP GI Surgical History: Reports: Cholecystectomy, Colonoscopy, EGD, Polypectomy Male Surgical History: Reports: None Endocrine Surgical History: Reports: None Neurological Surgical History: Reports: None Musculoskeletal Surgical History: Reports: None Oncologic Surgical History: Reports: None Dermatological Surgical History: Reports: None Social & Family History - Family History HEENT: Reports: Allergic Rhinitis, Hearing Impairment Cardiac: Reports: Afib, Bypass Respiratory: Reports: Sleep Apnea GI: Reports: GERD Musculoskeletal: Reports: Arthritis - Tobacco Use Tobacco Use Status *Q: Never Tobacco User - Caffeine Use Caffeine Use: Reports: None Other Caffeine Use: TWO CUPS DAILY - Living Situation & Occupation Living situation: Reports: , with Spouse Occupation: Retired ED ROS GENERAL - Review of Systems Review Of Systems: Comprehensive ROS is negative, except as noted in HPI. ED EXAM, GENERAL - Physical Exam Exam: See Below Exam Limited By: No Limitations General Appearance: Alert, WD/WN, No Apparent Distress Eye Exam: Bilateral Eye: EOMI, PERRL Throat/Mouth: Other (dry mucous membranes) Head: Atraumatic, Normocephalic Neck: Normal Inspection, Supple, Non-Tender, Full Range of Motion Respiratory/Chest: No Respiratory Distress, No Accessory Muscle Use, Chest Non- Tender, Decreased Breath Sounds (BLL) Cardiovascular: Normal Peripheral Pulses, Tachycardia, Irregularly Irregular GI/Abdominal: Normal Bowel Sounds, Soft, Non-Tender, No Organomegaly, No Distention, No Abnormal Bruit, No Mass Back Exam: Normal Inspection, Full Range of Motion, NT Extremities: Pedal Edema (1+ bilaterally) Neurological: Alert, Oriented, CN II-XII Intact, Normal Cognition, Normal Reflexes, No Motor/Sensory Deficits Psychiatric: Normal Affect, Normal Mood Skin Exam: Warm, Dry #1 Interpretation EKG Date: 09/07/21 Rhythm: A-Fib Rate (Beats/Min): 113 [place]: Normal P-Wave: Absent Comparison: NA - No Prior EKG Course - Vital Signs Last Recorded V/S: Last Vital Signs Temp 97.2 F 09/07/21 15:53 Pulse 105 H 09/07/21 15:53 Resp 20 09/07/21 15:53 BP 148/72 H 09/07/21 15:53 Pulse Ox 98 09/07/21 15:53 - Orders/Labs/Meds Orders: Active Orders 24 hr Category Date Time Status Chest 1V Frontal [CR] Stat Exams 09/07/21 07:49 Taken Chest 2V [CR] Stat Exams 09/07/21 08:41 Ordered Medication Orders Acetaminophen (Acetaminophen 325 Mg Tab) 650 mg PO Q4H PRN PRN Reason: Pain (Mild 1-3)/fever Hydrocodone Bitart/Acetaminophen (Acetaminophen/Hydrocodone 325-5 Mg Tab) 1 tab PO Q4H PRN PRN Reason: Pain (moderate 4-6) Albuterol/Ipratropium (Albuterol/Ipratropium 3.0-0.5 Mg/3 Ml Neb Soln) 3 ml NEB QID PRN PRN Reason: Shortness Of Breath/wheezing Apixaban (Apixaban 5 Mg Tab) 5 mg PO DAILY [facility] Last Admin: 09/07/21 13:23 Dose: 5 mg Documented by: MANSI Atorvastatin Calcium (Atorvastatin 10 Mg Tab) 10 mg PO BEDTIME [facility] Ceftriaxone Sodium (Ceftriaxone 1 Gm Vial) 1 gm IVPUSH Q24H [facility] Last Admin: 09/07/21 11:51 Dose: 1 gm Documented by: MANSI Cholecalciferol (Cholecalciferol (Vitamin D3) 25 Mcg Tab) 50 mcg PO DAILY [facility] Clotrimazole (Clotrimazole 1% Crm 30 Gm Tube) 0 gm TOP DAILY [facility] Finasteride (Finasteride 5 Mg Tab) 5 mg PO BEDTIME [facility] Folic Acid (Folic Acid 1 Mg Tab) 1 mg PO DAILY [facility] Last Admin: 09/07/21 13:23 Dose: 1 mg Documented by: MANSI Furosemide (Furosemide 40 Mg Tab) 40 mg PO DAILY [facility] Azithromycin 500 mg/ Sodium (Chloride) 250 mls @ 250 mls/hr IV Q24H [facility] Last Admin: 09/07/21 11:51 Dose: 250 mls/hr Documented by: MANSI Latanoprost (Latanoprost 0.005% Ophth Soln 2.5 Ml Bottle) 0 ml EYEBOTH BEDTIME [facility] Loratadine (Loratadine 10 Mg Tab) 10 mg PO BEDTIME [facility] Magnesium Oxide (Magnesium Oxide 250 Mg Tab) 500 mg PO BID [facility] Metoprolol Tartrate (Metoprolol Tartrate 50 Mg Tab) 50 mg PO BID [facility] Pantoprazole Sodium (Pantoprazole 40 Mg Tab.Cr) 40 mg PO ACBREAKFAST [facility] Sodium Chloride (Sodium Chloride 0.9% 10 Ml Syringe) 10 ml FLUSH ASDIRECTED PRN PRN Reason: Keep Vein Open Vitamin B Complex (Vitamin B Complex Cap) 1 each PO DAILY [facility] Labs: Laboratory Tests 09/07/21 09/07/21 09/07/21 Range/Units 08:00 08:00 08:00 WBC 9.5 (4.0-11.0) 10^3/uL RBC 4.14 L (4.50-6.00) x10^6/uL Hgb 13.1 L (14.0-18.0) g/dL Hct 40.0 L (42.0-52.0) % MCV 96.6 (83.0-97.0) fL MCH 31.6 (27.0-32.0) pg MCHC 32.8 (32.0-36.0) g/dL RDW Coeff of Jarvis 13.0 (11.0-15.0) % Plt Count 202 (150-400) 10^3/uL Immature Gran % (Auto) 1.2 (0.0-4.9) % Neut % (Auto) 67.4 (41-71) % Lymph % (Auto) 16.5 L (24-44) % [place] % (Auto) 14.6 H (0-10) % Eos % (Auto) 0.0 (0-6) % Baso % (Auto) 0.3 (0-1) % Neut # (Auto) 6.38 (1.80-8.00) x10^3/uL Lymph # (Auto) 1.56 (0.60-5.00) 10^3/uL [place] # (Auto) 1.38 (0.00-1.50) 10^3/uL Eos # (Auto) 0.00 (0.00-1.50) 10^3/uL Baso # (Auto) 0.03 (0.00-0.50) 10^3/uL Immature Gran # (Auto) 0.11 (0.00-0.49) 10^3/uL APTT 27.7 (23.2-32.3) SEC Sodium 145 (136-145) mEq/L Potassium 3.9 D (3.5-5.0) mEq/L Chloride 108 H (98-106) mEq/L Carbon Dioxide 28 (21-32) mmol/L BUN 15 (7-18) mg/dL Creatinine 1.5 H (0.7-1.3) mg/dL Est Cr Clr Drug Dosing 30.75 mL/min Estimated GFR (MDRD) 44 L (>=60) mL/min Glucose 121 H (75-99) mg/dL Calcium 8.8 (8.4-10.1) mg/dL Magnesium 2.2 (1.8-2.4) mg/dL Total Bilirubin 1.1 H (0.0-1.0) mg/dL AST 34 (15-37) U/L ALT 25 (12-78) U/L Alkaline Phosphatase 73 (46-116) U/L Lactate Dehydrogenase 233 H (100-190) U/L Creatine Kinase 41 (35-232) U/L Troponin I High Sens 11.3 (<=76) pg/mL NT-Pro-B Natriuret Pep (0-1000) pg/mL Total Protein 6.6 (6.4-8.2) g/dL Albumin 3.0 L (3.4-5.0) g/dL Lipase 219 (73-393) U/L SARS CoV-2 RNA Rapid DIAZ (NEGATIVE) 09/07/21 09/07/21 Range/Units 08:00 09:37 WBC (4.0-11.0) 10^3/uL RBC (4.50-6.00) x10^6/uL Hgb (14.0-18.0) g/dL Hct (42.0-52.0) % MCV (83.0-97.0) fL MCH (27.0-32.0) pg MCHC (32.0-36.0) g/dL RDW Coeff of Jarvis (11.0-15.0) % Plt Count (150-400) 10^3/uL Immature Gran % (Auto) (0.0-4.9) % Neut % (Auto) (41-71) % Lymph % (Auto) (24-44) % [place] % (Auto) (0-10) % Eos % (Auto) (0-6) % Baso % (Auto) (0-1) % Neut # (Auto) (1.80-8.00) x10^3/uL Lymph # (Auto) (0.60-5.00) 10^3/uL [place] # (Auto) (0.00-1.50) 10^3/uL Eos # (Auto) (0.00-1.50) 10^3/uL Baso # (Auto) (0.00-0.50) 10^3/uL Immature Gran # (Auto) (0.00-0.49) 10^3/uL APTT (23.2-32.3) SEC Sodium (136-145) mEq/L Potassium (3.5-5.0) mEq/L Chloride (98-106) mEq/L Carbon Dioxide (21-32) mmol/L BUN (7-18) mg/dL Creatinine (0.7-1.3) mg/dL Est Cr Clr Drug Dosing mL/min Estimated GFR (MDRD) (>=60) mL/min Glucose (75-99) mg/dL Calcium (8.4-10.1) mg/dL Magnesium (1.8-2.4) mg/dL Total Bilirubin (0.0-1.0) mg/dL AST (15-37) U/L ALT (12-78) U/L Alkaline Phosphatase (46-116) U/L Lactate Dehydrogenase (100-190) U/L Creatine Kinase (35-232) U/L Troponin I High Sens (<=76) pg/mL NT-Pro-B Natriuret Pep 3996 H (0-1000) pg/mL Total Protein (6.4-8.2) g/dL Albumin (3.4-5.0) g/dL Lipase (73-393) U/L SARS CoV-2 RNA Rapid DIAZ Negative (NEGATIVE) Meds: Medications Generic Name Dose Route Start Last Admin Trade Name Freq PRN Reason Stop Dose Admin Acetaminophen 650 mg 09/07/21 10:10 Acetaminophen 325 Mg Tab PO Q4H PRN Pain (Mild 1-3)/fever Hydrocodone Bitart/Acetaminophen 1 tab 09/07/21 10:56 Acetaminophen/Hydrocodone 325-5 Mg Tab PO Q4H PRN Pain (moderate 4-6) Albuterol/Ipratropium 3 ml 09/07/21 10:10 Albuterol/Ipratropium 3.0-0.5 Mg/3 Ml Neb Soln NEB QID PRN Shortness Of Breath/wheezing Apixaban 5 mg 09/07/21 13:15 09/07/21 13:23 Apixaban 5 Mg Tab PO 5 mg DAILY [facility] Administration Atorvastatin Calcium 10 mg 09/07/21 20:00 Atorvastatin 10 Mg Tab PO BEDTIME [facility] Ceftriaxone Sodium 1 gm 09/07/21 12:00 09/07/21 11:51 Ceftriaxone 1 Gm Vial IVPUSH 1 gm Q24H [facility] Administration Cholecalciferol 50 mcg 09/08/21 08:00 Cholecalciferol (Vitamin D3) 25 Mcg Tab PO DAILY [facility] Clotrimazole 0 gm 09/08/21 08:00 Clotrimazole 1% Crm 30 Gm Tube TOP DAILY [facility] Finasteride 5 mg 09/07/21 20:00 Finasteride 5 Mg Tab PO BEDTIME [facility] Folic Acid 1 mg 09/07/21 13:15 09/07/21 13:23 Folic Acid 1 Mg Tab PO 1 mg DAILY [facility] Administration Furosemide 40 mg 09/08/21 08:00 Furosemide 40 Mg Tab PO DAILY [facility] Azithromycin 500 mg/ Sodium 250 mls @ 250 mls/hr 09/07/21 12:00 09/07/21 11:51 Chloride IV 250 mls/hr Q24H [facility] Administration Latanoprost 0 ml 09/07/21 20:00 Latanoprost 0.005% Ophth Soln 2.5 Ml Bottle EYEBOTH BEDTIME [facility] Loratadine 10 mg 09/07/21 20:00 Loratadine 10 Mg Tab PO BEDTIME [facility] Magnesium Oxide 500 mg 09/07/21 20:00 Magnesium Oxide 250 Mg Tab PO BID [facility] Metoprolol Tartrate 50 mg 09/07/21 20:00 Metoprolol Tartrate 50 Mg Tab PO BID [facility] Pantoprazole Sodium 40 mg 09/08/21 07:00 Pantoprazole 40 Mg Tab.Cr PO ACBREAKFAST [facility] Sodium Chloride 10 ml 09/07/21 10:10 Sodium Chloride 0.9% 10 Ml Syringe FLUSH ASDIRECTED PRN Keep Vein Open Vitamin B Complex 1 each 09/08/21 08:00 Vitamin B Complex Cap PO DAILY [facility] Discontinued Medications Generic Name Dose Route Start Last Admin Trade Name Arlene PRN Reason Stop Dose Admin Furosemide 40 mg 09/07/21 11:30 09/07/21 11:51 Furosemide 40 Mg/4 Ml Vial IVPUSH 09/07/21 11:31 40 mg ONETIME ONE Administration Metoprolol Tartrate 2.5 mg 09/07/21 09:32 09/07/21 09:35 Metoprolol Tartrate 5 Mg/5 Ml Sdv IVPUSH 09/07/21 09:33 2.5 mg ONETIME ONE Administration - Re-Assessments/Exams Free Text/Narrative Re-Assessment/Exam: 09/07/21 09:30 Discussed labs, EKG and CXR results with patient and family. Will admit to acute for BLL pneumonia and CHF. Departure - Departure Time of Disposition: 09:50 Disposition: Admitted As Inpatient 66 Condition: Fair, Poor Clinical Impression: Pneumonia due to gram-positive bacteria, CHF, Congestive heart failure, Atrial fibrillation with RVR - Discharge Information *PRESCRIPTION DRUG MONITORING PROGRAM REVIEWED*: Not Applicable *COPY OF PRESCRIPTION DRUG MONITORING REPORT IN PATIENT ABIEL: Not Applicable Sepsis Event Note (ED) - Evaluation Sepsis Screening Result: No Definite Risk - Focused Exam Vital Signs: Vital Signs Temp Pulse Pulse Resp BP BP Pulse Ox 09/07/21 09:35 105 H 152/82 H 09/07/21 08:03 99.0 F 118 H 19 152/82 H 96 - Problem List & Annotations (1) Pneumonia due to gram-positive bacteria SNOMED Code(s): 454856855 Code(s): J15.9 - UNSPECIFIED BACTERIAL PNEUMONIA Status: Acute Current Visit: Yes (2) CHF, Congestive heart failure SNOMED Code(s): 84513730 Code(s): I50.9 - HEART FAILURE, UNSPECIFIED Status: Acute Current Visit: Yes (3) Atrial fibrillation with RVR SNOMED Code(s): 947933715405256 Code(s): I48.91 - UNSPECIFIED ATRIAL FIBRILLATION Status: Acute Current Visit: Yes - Problem List Review Problem List Initiated/Reviewed/Updated: Yes - My Orders Last 24 Hours: My Active Orders 09/07/21 08:41 Chest 2V [CR] Stat - Assessment/Plan Admission H&P: Please use this note as an admission H&P Last 24 Hours: My Active Orders 09/07/21 08:41 Chest 2V [CR] Stat Assessment:: Pneumonia CHF, acute on chronic Atrial Fibrillation with RVR Plan: EKG reveals atrial fib with RVR. Continue Lopressor. Chest xray reveals moderate bilateral pleural effusions with central pulmonary congestion as well as bibasilar infiltrate. Will cover with antibiotics given febrile status. Labs stable except ProBNP elevated to 3996. Will give dose Lasix 40 mg IV then continue 40 mg lasix PO daily. Daily weights and I & O. Will get echocardiogram. Admit to acute. Discussed case with Dr. Ruby, who agrees with admission/plan of care. See Gorb for remaining orders.
[2021-09-07] MEDS ORDERED: Metoprolol Tartrate 5 MG/5 ML SDV IVPUSH ONE (09:32)
[2021-09-07] MEDS ORDERED: Albuterol/Ipratropium 3.0-0.5 MG/3 ML Neb Soln NEB PRN (10:10)
[2021-09-07] MEDS ORDERED: Acetaminophen 325 MG Tab PO PRN (10:10)
[2021-09-07] MEDS ORDERED: Sodium Chloride 0.9% 10 ML Syringe FLUSH PRN (10:10)
[2021-09-07] MEDS ORDERED: Acetaminophen/HYDROcodone 325-5 MG Tab PO PRN (10:56)
[2021-09-07] MEDS ORDERED: Furosemide 40 MG/4 ML VIAL IVPUSH ONE (11:30)
[2021-09-07] MEDS: cefTRIAXone 1 GM Vial IVPUSH SCH (11:51)
[2021-09-07] MEDS: Azithromycin 500 MG in Sodium Chloride 0.9% 250 ML IV SCH (11:51)
[2021-09-07] MEDS: Folic Acid 1 MG Tab PO SCH (13:23)
[2021-09-07] MEDS: Apixaban 5 MG Tab PO SCH (13:23)
[2021-09-07] MEDS: atorvaSTATin 10 MG Tab PO SCH (19:55)
[2021-09-07] MEDS: Metoprolol Tartrate 50 MG Tab PO SCH (19:55)
[2021-09-07] MEDS: Finasteride 5 MG Tab PO SCH (19:56)
[2021-09-07] MEDS: Loratadine 10 MG Tab PO SCH (19:56)
[2021-09-07] MEDS: Latanoprost 0.005% Ophth Soln 2.5 ML Bottle EYEBOTH SCH (19:57)
[2021-09-08] MEDS: Pantoprazole 40 MG Tab.CR PO SCH (06:45)
[2021-09-08] MEDS: Apixaban 5 MG Tab PO SCH (08:13)
[2021-09-08] MEDS: Furosemide 40 MG Tab PO SCH (08:13)
[2021-09-08] MEDS: Metoprolol Tartrate 50 MG Tab PO SCH ×2 (08:13→19:58)
[2021-09-08] MEDS: Folic Acid 1 MG Tab PO SCH (08:13)
[2021-09-08] MEDS: Vitamin B Complex Cap PO SCH (08:13)
[2021-09-08] MEDS: Cholecalciferol (Vitamin D3) 25 MCG Tab PO SCH (08:13)
[2021-09-08] MEDS: Clotrimazole 1% Crm 30 GM Tube TOP SCH (08:30)
--- NOTE | 2021-09-08 10:48 | PN ---
DATE: 09/08/2021 S: Thomas is an 86-year-old who was admitted yesterday for shortness of breath. Sounds like he had some flare-up of his heart failure, had stopped his Lasix for over a week. He did admit to a little bit of increase in peripheral edema but was just mainly having exertional dyspnea whenever he tried to walk in his house. He was short of breath. He got a dose of IV Lasix yesterday. Weight is down almost 6 pounds. He feels like he is breathing much easier. O: VITAL SIGNS: Noted. He was started on IV antibiotics for potential pneumonia as well. GENERAL: On physical exam, the patient is pleasant and cooperative, appears in no distress. NECK: Supple, veins appear flat. There is negative hepatojugular reflex. LUNGS: His lung sounds show bibasilar crackles consistent with his x-rays. CARDIAC: Tones remain irregular. ABDOMEN: Soft. EXTREMITIES: He is still with 1+ edema, more prominent on the left. ASSESSMENT: 1. ACUTE EXACERBATION OF CONGESTIVE HEART FAILURE. 2. POSSIBLE PNEUMONIA. 3. CHRONIC ATRIAL FIBRILLATION. 4. CHRONIC ANTICOAGULATION. 5. HYPERTENSION. P: The patient appears better. He has continued to be hypertensive. I put him on a low-dose ARTIE given his CHF. We will get an echocardiogram as well to evaluate LV function. He remains on Rocephin and Zithromax for possible pneumonia. His lab work does show normal white count and his CRP was elevated on admit. SALLY/HETAL /[id number]
[2021-09-08] MEDS: Lisinopril 10 MG Tab PO SCH (10:51)
[2021-09-08] MEDS: cefTRIAXone 1 GM Vial IVPUSH SCH (11:34)
[2021-09-08] MEDS: Azithromycin 500 MG in Sodium Chloride 0.9% 250 ML IV SCH (12:51)
[2021-09-08] MEDS: Finasteride 5 MG Tab PO SCH (19:57)
[2021-09-08] MEDS: Latanoprost 0.005% Ophth Soln 2.5 ML Bottle EYEBOTH SCH (19:57)
[2021-09-08] MEDS: atorvaSTATin 10 MG Tab PO SCH (19:58)
[2021-09-08] MEDS: Loratadine 10 MG Tab PO SCH (19:59)
[2021-09-09] MEDS: Pantoprazole 40 MG Tab.CR PO SCH (06:33)
[2021-09-09] MEDS: Apixaban 5 MG Tab PO SCH (07:27)
[2021-09-09] MEDS: Cholecalciferol (Vitamin D3) 25 MCG Tab PO SCH (07:28)
[2021-09-09] MEDS: Furosemide 40 MG Tab PO SCH (07:28)
[2021-09-09] MEDS: Lisinopril 10 MG Tab PO SCH (07:28)
[2021-09-09] MEDS: Metoprolol Tartrate 50 MG Tab PO SCH ×2 (07:28→19:55)
[2021-09-09] MEDS: Folic Acid 1 MG Tab PO SCH (07:28)
[2021-09-09] MEDS: Vitamin B Complex Cap PO SCH (07:28)
[2021-09-09] MEDS: Albuterol/Ipratropium 3.0-0.5 MG/3 ML Neb Soln NEB SCH ×4 (07:57→19:55)
[2021-09-09] MEDS: Potassium Chloride 10 MEQ Tab.ER PO SCH (08:51)
[2021-09-09] MEDS: Clotrimazole 1% Crm 30 GM Tube TOP SCH (08:52)
--- NOTE | 2021-09-09 09:16 | PCM.PN ---
- General Info Date of Service: 09/09/21 Admission Dx/Problem (Free Text): Pneumonia Subjective Update: Patient states is feeling less short of breath this am. Does have moist cough, starting to be more loose. Afebrile. Still remains somewhat tachycardic. Appetite is good. Admits to having BM this am so feeling better in that regard. More steady on his feet. No chest pain. Functional Status: Reports: Pain Controlled, Tolerating Diet, Ambulating - Review of Systems General: Reports: Weakness, Malaise HEENT: Reports: Rhinitis Pulmonary: Reports: Shortness of Breath, Cough Cardiovascular: Reports: Edema. Denies: Chest Pain, Lightheadedness Gastrointestinal: Denies: Abdominal Pain, Constipation, Decreased Appetite, Nausea, Vomiting Genitourinary: Reports: No Symptoms Musculoskeletal: Reports: No Symptoms Skin: Reports: No Symptoms Neurological: Reports: Weakness - Patient Data Vitals - Most Recent: Last Vital Signs Temp 97.8 F 09/09/21 04:00 Pulse 94 09/09/21 07:28 Resp 20 09/09/21 04:00 BP 148/82 H 09/09/21 07:28 Pulse Ox 92 L 09/09/21 04:00 Weight - Most Recent: 178 lb 12.8 oz I&O - Last 24 Hours: Intake & Output 09/08/21 09/09/21 09/09/21 22:59 06:59 14:59 Intake Total 1600 Output Total 600 300 Balance 1000 -300 Lab Results Last 24 Hours: Laboratory Results - last 24 hr 09/09/21 09/09/21 Range/Units 07:00 07:00 WBC 8.4 (4.0-11.0) 10^3/uL RBC 3.73 L (4.50-6.00) x10^6/uL Hgb 11.9 L (14.0-18.0) g/dL Hct 36.0 L (42.0-52.0) % MCV 96.5 (83.0-97.0) fL MCH 31.9 (27.0-32.0) pg MCHC 33.1 (32.0-36.0) g/dL RDW Coeff of Jarvis 12.9 (11.0-15.0) % Plt Count 204 (150-400) 10^3/uL Immature Gran % (Auto) 1.7 (0.0-4.9) % Neut % (Auto) 66.6 (41-71) % Lymph % (Auto) 16.5 L (24-44) % [place] % (Auto) 14.7 H (0-10) % Eos % (Auto) 0.0 (0-6) % Baso % (Auto) 0.5 (0-1) % Neut # (Auto) 5.56 (1.80-8.00) x10^3/uL Lymph # (Auto) 1.38 (0.60-5.00) 10^3/uL [place] # (Auto) 1.23 (0.00-1.50) 10^3/uL Eos # (Auto) 0.00 (0.00-1.50) 10^3/uL Baso # (Auto) 0.04 (0.00-0.50) 10^3/uL Immature Gran # (Auto) 0.14 (0.00-0.49) 10^3/uL Sodium 144 (136-145) mEq/L Potassium 3.2 L (3.5-5.0) mEq/L Chloride 107 H (98-106) mEq/L Carbon Dioxide 29 (21-32) mmol/L BUN 14 (7-18) mg/dL Creatinine 1.3 (0.7-1.3) mg/dL Est Cr Clr Drug Dosing 35.48 mL/min Estimated GFR (MDRD) 52 L (>=60) mL/min Glucose 115 H (75-99) mg/dL Calcium 8.4 (8.4-10.1) mg/dL C-Reactive Protein 3.2 H (0.2-0.8) mg/dL Med Orders - Current: Current Medications Acetaminophen (Acetaminophen 325 Mg Tab) 650 mg PO Q4H PRN PRN Reason: Pain (Mild 1-3)/fever Hydrocodone Bitart/Acetaminophen (Acetaminophen/Hydrocodone 325-5 Mg Tab) 1 tab PO Q4H PRN PRN Reason: Pain (moderate 4-6) Albuterol/Ipratropium (Albuterol/Ipratropium 3.0-0.5 Mg/3 Ml Neb Soln) 3 ml NEB 0800,1200,1600,2000 [facility] Last Admin: 09/09/21 07:57 Dose: 3 ml Documented by: Apixaban (Apixaban 5 Mg Tab) 5 mg PO DAILY [facility] Last Admin: 09/09/21 07:27 Dose: 5 mg Documented by: Atorvastatin Calcium (Atorvastatin 10 Mg Tab) 10 mg PO BEDTIME [facility] Last Admin: 09/08/21 19:58 Dose: 10 mg Documented by: Ceftriaxone Sodium (Ceftriaxone 1 Gm Vial) 1 gm IVPUSH Q24H [facility] Last Admin: 09/08/21 11:34 Dose: 1 gm Documented by: Cholecalciferol (Cholecalciferol (Vitamin D3) 25 Mcg Tab) 50 mcg PO DAILY [facility] Last Admin: 09/09/21 07:28 Dose: 50 mcg Documented by: Clotrimazole (Clotrimazole 1% Crm 30 Gm Tube) 0 gm TOP DAILY [facility] Last Admin: 09/09/21 08:52 Dose: 1 applic Documented by: Finasteride (Finasteride 5 Mg Tab) 5 mg PO BEDTIME [facility] Last Admin: 09/08/21 19:57 Dose: 5 mg Documented by: Folic Acid (Folic Acid 1 Mg Tab) 1 mg PO DAILY [facility] Last Admin: 09/09/21 07:28 Dose: 1 mg Documented by: Furosemide (Furosemide 40 Mg Tab) 40 mg PO DAILY [facility] Last Admin: 09/09/21 07:28 Dose: 40 mg Documented by: Azithromycin 500 mg/ Sodium (Chloride) 250 mls @ 250 mls/hr IV Q24H [facility] Last Admin: 09/08/21 12:51 Dose: 250 mls/hr Documented by: Latanoprost (Latanoprost 0.005% Ophth Soln 2.5 Ml Bottle) 0 ml EYEBOTH BEDTIME [facility] Last Admin: 09/08/21 19:57 Dose: 1 drop Documented by: Lisinopril (Lisinopril 10 Mg Tab) 10 mg PO DAILY [facility] Last Admin: 09/09/21 07:28 Dose: 10 mg Documented by: Loratadine (Loratadine 10 Mg Tab) 10 mg PO BEDTIME [facility] Last Admin: 09/08/21 19:59 Dose: 10 mg Documented by: Magnesium Oxide (Magnesium Oxide 250 Mg Tab) 500 mg PO BID [facility] Last Admin: 09/09/21 07:27 Dose: 500 mg Documented by: Metoprolol Tartrate (Metoprolol Tartrate 50 Mg Tab) 50 mg PO BID [facility] Last Admin: 09/09/21 07:28 Dose: 50 mg Documented by: Pantoprazole Sodium (Pantoprazole 40 Mg Tab.Cr) 40 mg PO ACBREAKFAST [facility] Last Admin: 09/09/21 06:33 Dose: 40 mg Documented by: Potassium Chloride (Potassium Chloride 10 Meq Tab.Er) 10 meq PO DAILY [facility] Last Admin: 09/09/21 08:51 Dose: 10 meq Documented by: Sodium Chloride (Sodium Chloride 0.9% 10 Ml Syringe) 10 ml FLUSH ASDIRECTED PRN PRN Reason: Keep Vein Open Vitamin B Complex (Vitamin B Complex Cap) 1 each PO DAILY [facility] Last Admin: 09/09/21 07:28 Dose: 1 each Documented by: Discontinued Medications Albuterol/Ipratropium (Albuterol/Ipratropium 3.0-0.5 Mg/3 Ml Neb Soln) 3 ml NEB QID PRN PRN Reason: Shortness Of Breath/wheezing Furosemide (Furosemide 40 Mg/4 Ml Vial) 40 mg IVPUSH ONETIME ONE Stop: 09/07/21 11:31 Last Admin: 09/07/21 11:51 Dose: 40 mg Documented by: Metoprolol Tartrate (Metoprolol Tartrate 5 Mg/5 Ml Sdv) 2.5 mg IVPUSH ONETIME ONE Stop: 09/07/21 09:33 Last Admin: 09/07/21 09:35 Dose: 2.5 mg Documented by: - Exam Quality Assessment: Supplemental Oxygen General: Alert, Oriented, Cooperative HEENT: Mucous Membr. Moist/[place] Neck: Supple Lungs: Crackles (LLL) Cardiovascular: Irregular Rhythm GI/Abdominal Exam: Normal Bowel Sounds, Soft, Non-Tender Extremities: Normal Inspection, Pedal Edema (1+ pitting) Skin: Warm, Dry Neurological: No New Focal Deficit - Patient Data Lab Results Last 24 hrs: Laboratory Results - last 24 hr 09/09/21 09/09/21 Range/Units 07:00 07:00 WBC 8.4 (4.0-11.0) 10^3/uL RBC 3.73 L (4.50-6.00) x10^6/uL Hgb 11.9 L (14.0-18.0) g/dL Hct 36.0 L (42.0-52.0) % MCV 96.5 (83.0-97.0) fL MCH 31.9 (27.0-32.0) pg MCHC 33.1 (32.0-36.0) g/dL RDW Coeff of Jarvis 12.9 (11.0-15.0) % Plt Count 204 (150-400) 10^3/uL Immature Gran % (Auto) 1.7 (0.0-4.9) % Neut % (Auto) 66.6 (41-71) % Lymph % (Auto) 16.5 L (24-44) % [place] % (Auto) 14.7 H (0-10) % Eos % (Auto) 0.0 (0-6) % Baso % (Auto) 0.5 (0-1) % Neut # (Auto) 5.56 (1.80-8.00) x10^3/uL Lymph # (Auto) 1.38 (0.60-5.00) 10^3/uL [place] # (Auto) 1.23 (0.00-1.50) 10^3/uL Eos # (Auto) 0.00 (0.00-1.50) 10^3/uL Baso # (Auto) 0.04 (0.00-0.50) 10^3/uL Immature Gran # (Auto) 0.14 (0.00-0.49) 10^3/uL Sodium 144 (136-145) mEq/L Potassium 3.2 L (3.5-5.0) mEq/L Chloride 107 H (98-106) mEq/L Carbon Dioxide 29 (21-32) mmol/L BUN 14 (7-18) mg/dL Creatinine 1.3 (0.7-1.3) mg/dL Est Cr Clr Drug Dosing 35.48 mL/min Estimated GFR (MDRD) 52 L (>=60) mL/min Glucose 115 H (75-99) mg/dL Calcium 8.4 (8.4-10.1) mg/dL C-Reactive Protein 3.2 H (0.2-0.8) mg/dL Result Diagrams: 09/09/21 07:00 09/09/21 07:00 Sepsis Event Note - Evaluation Sepsis Screening Result: Possible Sepsis Risk - Focused Exam Vital Signs: Vital Signs Temp Pulse Pulse Resp BP BP Pulse Ox 09/09/21 07:28 94 148/82 H 09/09/21 04:00 97.8 F 100 20 150/89 H 92 L 09/09/21 00:00 97.5 F 100 20 143/82 H 91 L - Problem List & Annotations (1) Atrial fibrillation with RVR SNOMED Code(s): 960885698591414 Code(s): I48.91 - UNSPECIFIED ATRIAL FIBRILLATION Status: Acute Priority: High Current Visit: Yes (2) CHF, Congestive heart failure SNOMED Code(s): 44934503 Code(s): I50.9 - HEART FAILURE, UNSPECIFIED Status: Acute Priority: High Current Visit: Yes (3) Pneumonia due to gram-positive bacteria SNOMED Code(s): 995482087 Code(s): J15.9 - UNSPECIFIED BACTERIAL PNEUMONIA Status: Acute Priority: High Current Visit: Yes - Problem List Review Problem List Initiated/Reviewed/Updated: Yes - My Orders Last 24 Hours: My Active Orders 09/09/21 08:30 Potassium Chloride [Klor-Con 10] 10 meq PO DAILY - Assessment Assessment:: Patient does feel he is improving, less short of breath. Ambulates short distances. Still requiring 1 liter of oxygen. Will switch to scheduled nebulizers versus PRN. Continue Lasix. WBC is normal at 8.4. Potassium is low at 3.2. CRP slightly improved from yesterday. will start oral potassium. Continue IV Rocephin and Zithromax. Repeat labs in am.
[2021-09-09] MEDS: Azithromycin 500 MG in Sodium Chloride 0.9% 250 ML IV SCH (12:01)
[2021-09-09] MEDS: cefTRIAXone 1 GM Vial IVPUSH SCH (12:02)
[2021-09-09] MEDS: atorvaSTATin 10 MG Tab PO SCH (19:55)
[2021-09-09] MEDS: Finasteride 5 MG Tab PO SCH (19:57)
[2021-09-09] MEDS: Loratadine 10 MG Tab PO SCH (19:57)
[2021-09-09] MEDS: Latanoprost 0.005% Ophth Soln 2.5 ML Bottle EYEBOTH SCH (19:58)
[2021-09-09] MEDS ORDERED: Metoprolol Tartrate 25 MG Tab PO ONE (21:37)
[2021-09-10] MEDS: Pantoprazole 40 MG Tab.CR PO SCH (06:53)
[2021-09-10] MEDS: Clotrimazole 1% Crm 30 GM Tube TOP SCH (07:21)
[2021-09-10] MEDS: Vitamin B Complex Cap PO SCH (07:21)
[2021-09-10] MEDS: Apixaban 5 MG Tab PO SCH (07:22)
[2021-09-10] MEDS: Metoprolol Tartrate 50 MG Tab PO SCH ×2 (07:22→20:03)
[2021-09-10] MEDS: Potassium Chloride 10 MEQ Tab.ER PO SCH (07:22)
[2021-09-10] MEDS: Lisinopril 10 MG Tab PO SCH (07:22)
[2021-09-10] MEDS: Albuterol/Ipratropium 3.0-0.5 MG/3 ML Neb Soln NEB SCH (07:24)
[2021-09-10] MEDS: Furosemide 40 MG Tab PO SCH ×2 (07:28→15:44)
[2021-09-10] MEDS: Folic Acid 1 MG Tab PO SCH (07:28)
[2021-09-10] MEDS: Cholecalciferol (Vitamin D3) 25 MCG Tab PO SCH (07:28)
[2021-09-10] MEDS ORDERED: Albuterol/Ipratropium 3.0-0.5 MG/3 ML Neb Soln NEB PRN (10:16)
--- NOTE | 2021-09-10 10:58 | PN ---
DATE: 09/10/2021 S: Thomas has been able to be weaned down slightly on his O2. I believe, he is at 1 L. They did walk him this morning without any incident. He remained around 89 and did come up, I believe, in the low 90s after walking was stopped. Did repeat a chest x-ray today. Looks like he actually has slightly enlarged pleural effusions. His vital signs look better. He has tolerated the ARTIE inhibitor. Lab today shows his white count to be stable. His CRP is down slightly and for the most part, he has not had any significant cough. They did put him on some nebulizers yesterday, and it has made him a little more tachycardic from his AFib. He did have an echocardiogram. I am still waiting on that result. O: VITAL SIGNS: He is afebrile. Pulse 81 this morning. BP is 149/70. Saturation 94% on 1 L. He is running around 90 to 91, now off O2. NECK: Once again, he has no resting JVD. LUNGS: He has bibasilar crackles with some dullness in both bases. CARDIAC: Tones are irregular but controlled. ABDOMEN: Soft. EXTREMITIES: His peripheral edema is improved. ASSESSMENT: 1. ACUTE EXACERBATION OF CHRONIC DIASTOLIC CONGESTIVE HEART FAILURE. 2. PNEUMONIA. 3. CHRONIC ATRIAL FIBRILLATION. P: We will continue with IV antibiotics. From an infectious disease standpoint, he looks better. I am going to try him on a b.i.d. dose of Lasix. I am little concerned about his AFib and getting tachy, so we will make the nebs p.r.n. only. Continue to monitor closely. SALLY/HETAL /[id number]
[2021-09-10] MEDS: cefTRIAXone 1 GM Vial IVPUSH SCH (11:50)
[2021-09-10] MEDS: Azithromycin 500 MG in Sodium Chloride 0.9% 250 ML IV SCH (11:55)
[2021-09-10] MEDS: Loratadine 10 MG Tab PO SCH (20:03)
[2021-09-10] MEDS: atorvaSTATin 10 MG Tab PO SCH (20:03)
[2021-09-10] MEDS: Finasteride 5 MG Tab PO SCH (20:03)
[2021-09-10] MEDS: Latanoprost 0.005% Ophth Soln 2.5 ML Bottle EYEBOTH SCH (20:04)
[2021-09-11] MEDS: Pantoprazole 40 MG Tab.CR PO SCH (06:55)
[2021-09-11] MEDS: Metoprolol Tartrate 50 MG Tab PO SCH (08:02)
[2021-09-11] MEDS: Apixaban 5 MG Tab PO SCH (08:02)
[2021-09-11] MEDS: Lisinopril 10 MG Tab PO SCH (08:03)
[2021-09-11] MEDS: Cholecalciferol (Vitamin D3) 25 MCG Tab PO SCH (08:03)
[2021-09-11] MEDS: Vitamin B Complex Cap PO SCH (08:03)
[2021-09-11] MEDS: Potassium Chloride 10 MEQ Tab.ER PO SCH (08:03)
[2021-09-11] MEDS: Furosemide 40 MG Tab PO SCH (08:04)
[2021-09-11] MEDS: Folic Acid 1 MG Tab PO SCH (08:04)
[2021-09-11 08:05] VITALS: BP 151/72; PULSE 102
[2021-09-11] MEDS: Clotrimazole 1% Crm 30 GM Tube TOP SCH (10:36)
--- NOTE | 2021-09-11 13:06 | DISCH ---
ADMISSION DIAGNOSES: 1. Pneumonia. 2. Acute exacerbation of chronic congestive heart failure. 3. Chronic atrial fibrillation with rapid ventricular response. 4. Chronic anticoagulation. DISCHARGE DIAGNOSIS: 1. PNEUMONIA. 2. ACUTE EXACERBATION OF CHRONIC CONGESTIVE HEART FAILURE. 3. CHRONIC ATRIAL FIBRILLATION WITH RAPID VENTRICULAR RESPONSE. 4. CHRONIC ANTICOAGULATION. HISTORY: The patient is an 86-year-old male who presented to [facility] for increased shortness of breath, weakness, and she felt he had pneumonia and they ultimately admitted him for IV antibiotics. His chest x-ray confirmed a little bit of heart failure as well, which he is treated for on a chronic basis. His proBNP was slightly elevated at 4000. HOSPITAL COURSE: The patient was admitted, given a dose of IV Lasix, started on Rocephin and Zithromax. Over the course of the next 4 days, he was able to be weaned off his O2 which was initially at 4 L per nasal cannula to keep him above 90%. He is now off. His weight is down about 5 pounds. His peripheral edema is improved. He has had an improvement in his exercise capacity. He did have a CRP which reached a piyush of 5. It is down to 2.4 at discharge. Most of his problem was a flare-up of his CHF. We did start him on low-dose lisinopril and increased his Lasix now to 40 b.i.d., he is going to go home on 60 every morning. He needs close followup with Dr. Puente, his primary physician at [facility] in [place] early next week for repeat chest x-ray and lab work. COMPLICATIONS: During stay were none. CONSULTATIONS: None. PROCEDURES: Echocardiogram. DISPOSITION: Discharged home. YANN /[id number]
== END 2021-09-11 11:46 | disposition home or self-care (01) | DRG 193 ==
LOC: CC.ED 07:22 → CC.MS 09:50 → UNDOADMIN 10:02 → CC.MS 10:02
PROVIDERS: ADMIT Nurse Practitioner Family; ATTEND Family Medicine
DX: J15.9 Unspecified bacterial pneumonia (principal); I50.9 Heart failure, unspecified; I48.91 Unspecified atrial fibrillation; H40.9 Unspecified glaucoma; I50.33 Acute on chronic diastolic (congestive) heart failure; I48.20 Chronic atrial fibrillation, unspecified; I11.0 Hypertensive heart disease with heart failure; H54.7 Unspecified visual loss; E78.00 Pure hypercholesterolemia, unspecified; K21.9 Gastro-esophageal reflux disease without esophagitis; K44.9 Diaphragmatic hernia without obstruction or gangrene; K57.90 Diverticulosis of intestine, part unspecified, without perforation or abscess without bleeding; N40.0 Benign prostatic hyperplasia without lower urinary tract symptoms; G89.29 Other chronic pain; M54.2 Cervicalgia; Z95.1 Presence of aortocoronary bypass graft; M19.90 Unspecified osteoarthritis, unspecified site; E11.9 Type 2 diabetes mellitus without complications; Z88.8 Allergy status to other drugs, medicaments and biological substances; Z86.19 Personal history of other infectious and parasitic diseases; Z79.01 Long term (current) use of anticoagulants; Z88.0 Allergy status to penicillin; Z88.2 Allergy status to sulfonamides; Z88.1 Allergy status to other antibiotic agents; Z91.011 Allergy to milk products; Z79.899 Other long term (current) drug therapy; Z86.010 Personal history of colon polyps; Z98.49 Cataract extraction status, unspecified eye; Z98.890 Other specified postprocedural states; Z90.49 Acquired absence of other specified parts of digestive tract; Z20.822 Contact with and (suspected) exposure to COVID-19
CPT/HCPCS: 36415; 71046; 80053; 82550; 83615; 83690; 83735; 83880; 84484; 85025; 85730; 93005; 96374; 99285; J3490; U0002; 71045; 80048; 86140; 93306; 94640; 97110-GP; 97161-GP; A9270-GY; J0456; J0696; J1940; J7050; J7620-GY

== ENCOUNTER 2021-12-28 13:04 | Observation (INO) | payer MEDICARE, OTHER ==
[2021-12-28 13:55] LABS: CHLORIDE,CL 104 mEq/L (98-106); SODIUM,NA 142 mEq/L (136-145)
[2021-12-28] MEDS ORDERED: Iopamidol 755 Mg/ML 100 ML Bottle IVPUSH ONE (15:35)
[2021-12-28] MEDS ORDERED: Docusate Sodium 100 MG Cap PO PRN (15:54)
[2021-12-28] MEDS ORDERED: Acetaminophen 325 MG Tab PO PRN ×2 (15:54→16:01)
[2021-12-28] MEDS ORDERED: Acetaminophen/HYDROcodone 325-5 MG Tab PO PRN (16:01)
[2021-12-28] MEDS ORDERED: Albuterol/Ipratropium 3.0-0.5 MG/3 ML Neb Soln NEB PRN (16:22)
[2021-12-28 17:04] LABS: CORONAVIRUS COVID-19 NAA NEGATIVE (NEGATIVE)
[2021-12-28] MEDS: Clindamycin Phosphate in D5W 600 MG in Premix Bag 1 BAG IV SCH ×2 (17:38)
[2021-12-28] MEDS: Latanoprost 0.005% Ophth Soln 2.5 ML Bottle *PTOM EYEBOTH SCH (19:48)
[2021-12-28] MEDS: Finasteride 5 MG Tab *PTOM PO SCH (19:48)
[2021-12-29] MEDS: Clindamycin Phosphate in D5W 600 MG in Premix Bag 1 BAG IV SCH ×6 (00:35→16:29)
[2021-12-29] MEDS ORDERED: Non-Formulary Medication 1 Each (Bicalutamide [Casodex] 50 MG Tablet) PO SCH (08:00)
[2021-12-29] MEDS ORDERED: Metoprolol Tartrate 50 MG Tab PO SCH (08:00)
[2021-12-29] MEDS ORDERED: Potassium Chloride 10 MEQ Tab.ER PO SCH (08:00)
[2021-12-29] MEDS ORDERED: Folic Acid 1 MG Tab PO SCH (08:00)
[2021-12-29] MEDS ORDERED: Apixaban 5 MG Tab PO SCH (08:00)
[2021-12-29] MEDS ORDERED: Take Home: Pantoprazole 40 MG Tab.CR, 1 Tab Pack PO SCH (08:00)
[2021-12-29] MEDS ORDERED: Lisinopril 10 MG Tab PO SCH (08:00)
[2021-12-29] MEDS ORDERED: Furosemide 40 MG Tab PO SCH (08:00)
[2021-12-29] MEDS ORDERED: FOLIC ACID 1 MG PO SCH (08:12)
[2021-12-29] MEDS ORDERED: Furosemide 40 MG Tab **PTOM PO SCH ×3 (08:13→14:00)
[2021-12-29] MEDS: HYDROCORTISONE 5 MG PO SCH (09:18)
[2021-12-29] MEDS: Famotidine 20 MG Tab PO SCH ×2 (09:20→19:44)
[2021-12-29] MEDS: Latanoprost 0.005% Ophth Soln 2.5 ML Bottle *PTOM EYEBOTH SCH (19:41)
[2021-12-29] MEDS: Finasteride 5 MG Tab *PTOM PO SCH (19:41)
[2021-12-30] MEDS: Clindamycin Phosphate in D5W 600 MG in Premix Bag 1 BAG IV SCH ×6 (00:01→09:15)
[2021-12-30] MEDS ORDERED: Clindamycin HCl 150 MG Cap PO SCH (07:30)
[2021-12-30] MEDS: Famotidine 20 MG Tab PO SCH (07:43)
[2021-12-30] MEDS: HYDROCORTISONE 5 MG PO SCH (07:44)
[2021-12-30 08:49] VITALS: BP 142/71; PULSE 90
== END 2021-12-30 11:05 | disposition home or self-care (01) ==
LOC: CC.ED 13:04 → UNDOADMIN 15:28 → INTOOBSV 15:28 → CC.MS 15:28 → UNDOADMOB 15:28 → CC.MS 15:38
PROVIDERS: ADMIT Nurse Practitioner Family; ATTEND Nurse Practitioner Family
DX: J69.0 Pneumonitis due to inhalation of food and vomit (principal); E78.00 Pure hypercholesterolemia, unspecified; I10 Essential (primary) hypertension; H54.7 Unspecified visual loss; K21.9 Gastro-esophageal reflux disease without esophagitis; J98.11 Atelectasis; N40.0 Benign prostatic hyperplasia without lower urinary tract symptoms; E11.9 Type 2 diabetes mellitus without complications; Z88.0 Allergy status to penicillin; Z91.011 Allergy to milk products; Z88.8 Allergy status to other drugs, medicaments and biological substances; Z88.2 Allergy status to sulfonamides; Z88.3 Allergy status to other anti-infective agents; Z95.1 Presence of aortocoronary bypass graft; Z98.890 Other specified postprocedural states; Z90.49 Acquired absence of other specified parts of digestive tract; Z79.899 Other long term (current) drug therapy; Z20.822 Contact with and (suspected) exposure to COVID-19
CPT/HCPCS: 0240U; 36415; 71046; 71260; 80053; 85025; 96365; 96366; 96376; 99217; 99220; 99225; 99285-25; A9270-GY; G0378; J3490; J7620-GY; Q9967

== ENCOUNTER 2022-08-07 15:14 | Emergency (ER) | payer MEDICARE, OTHER ==
[2022-08-07] MEDS ORDERED: Aspirin 81 MG Tab.Chew PO ONE (15:33)
[2022-08-07] MEDS ORDERED: Ondansetron 4 MG/2 ML SDV IVPUSH PRN (15:36)
[2022-08-07 17:05] LABS: CORONAVIRUS COVID-19 NAA NEGATIVE (NEGATIVE)
[2022-08-07] MEDS ORDERED: Metoprolol Tartrate 5 MG/5 ML SDV IVPUSH ONE (17:19)
[2022-08-07] MEDS ORDERED: Metoprolol Tartrate 50 MG Tab PO ONE (18:20)
[2022-08-07 18:28] VITALS: BP 185/91; PULSE 82
== END 2022-08-07 18:30 ==
LOC: CC.ED 15:14
DX: R79.89 Other specified abnormal findings of blood chemistry (principal); I10 Essential (primary) hypertension; E11.9 Type 2 diabetes mellitus without complications; Z88.0 Allergy status to penicillin; Z91.011 Allergy to milk products; Z88.8 Allergy status to other drugs, medicaments and biological substances; Z88.2 Allergy status to sulfonamides; Z79.899 Other long term (current) drug therapy; Z79.01 Long term (current) use of anticoagulants; Z90.49 Acquired absence of other specified parts of digestive tract
CPT/HCPCS: 0240U; 70450; 71045; 80053; 81001; 83690; 84484; 85025; 93005; 96374; 96375; 99284; 99285-25; A9270-GY; J2405; J3490

== ENCOUNTER 2022-09-06 14:23 | Observation (INO) | payer MEDICARE, OTHER ==
[2022-09-06] MEDS ORDERED: Acetaminophen 325 MG Tab PO PRN (16:36)
[2022-09-06] MEDS ORDERED: Docusate Sodium 100 MG Cap PO PRN (16:37)
[2022-09-06] MEDS ORDERED: Loratadine 10 MG Tab PO SCH (20:00)
[2022-09-06] MEDS: Apixaban 5 MG Tab **PTOM PO SCH (20:07)
[2022-09-06] MEDS: METOPROLOL TARTRATE 100 MG PO SCH (20:08)
[2022-09-07] MEDS: Apixaban 5 MG Tab **PTOM PO SCH (07:20)
[2022-09-07] MEDS: METOPROLOL TARTRATE 100 MG PO SCH (07:21)
[2022-09-07 07:35] VITALS: BP 116/63; PULSE 81
[2022-09-07] MEDS ORDERED: HYDROCORTISONE 5 MG PO SCH (08:00)
[2022-09-07] MEDS ORDERED: Cholecalciferol (Vitamin D3) 25 MCG Tab PO SCH (08:00)
[2022-09-07] MEDS ORDERED: Cyanocobalamin (Vitamin B12) 1,000 MCG Tab PO SCH (08:00)
[2022-09-07] MEDS ORDERED: Furosemide 40 MG Tab **PTOM PO SCH (08:00)
[2022-09-07] MEDS ORDERED: Clopidogrel 75 MG Tab **PTOM PO SCH (08:00)
[2022-09-07] MEDS ORDERED: VENLAFAXINE 37.5 MG PO SCH (08:00)
[2022-09-07] MEDS ORDERED: FOLIC ACID 1 MG PO SCH (08:00)
== END 2022-09-07 13:16 | disposition home or self-care (01) ==
LOC: CC.ED 14:23 → UNDOADMOB 15:45 → CC.MS 15:45
PROVIDERS: ADMIT Physician Assistant Medical; ATTEND Physician Assistant Medical
DX: R53.81 Other malaise (principal); E83.42 Hypomagnesemia; K21.9 Gastro-esophageal reflux disease without esophagitis; I10 Essential (primary) hypertension; E78.00 Pure hypercholesterolemia, unspecified; E11.9 Type 2 diabetes mellitus without complications; Z98.890 Other specified postprocedural states; Z79.899 Other long term (current) drug therapy; Z20.822 Contact with and (suspected) exposure to COVID-19; Z88.0 Allergy status to penicillin; Z88.2 Allergy status to sulfonamides; Z88.3 Allergy status to other anti-infective agents; Z90.49 Acquired absence of other specified parts of digestive tract
CPT/HCPCS: 36415; 71045; 80053; 83735; 83880; 84484; 85025; 93005; 97161; 99285; A9270; G0378; U0002